=== PATIENT | female | born 1990 | race Caucasian/White ===

== ENCOUNTER 2019-10-22 13:12 | Outpatient (CLI) | payer MEDICARE, MEDICAID, SELFPAY ==
--- NOTE | ~2019-10-22 | CT_ITS ---
EXAMINATION: CT BRAIN W/O DATE: 10/22/2019 13:56 INDICATION: Migraine headaches. Paresthesias in the fingers and toes. TECHNIQUE: Computed tomography (CT) of the head was performed without intravenous contrast. The dose- length product was 605.33 mGy-cm. Automated exposure control and iterative reconstruction technique w ere employed. COMPARISON: No prior studies for comparison. FINDINGS: Normal brain parenchymal volume for age. Normal goodman-white differentiation. No acute intrac ranial hemorrhage, infarction, mass or mass effect. No ventriculomegaly or midline shift. Midline sagittal images demonstrate a normal corpus callosum, c raniovertebral junction and sella turcica. Basilar cisterns are patent. Paranasal sinuses and mastoids are pneumatized. No depressed skull fractures. IMPRESSION: 1. No acute intracranial abnormality. Reviewed, dictated and finalized at location A.
--- NOTE | ~2019-10-22 | XR_ITS ---
XR cervical spine 4-5V INDICATION: Paresthesias for 6 months TECHNIQUE: 4 views of the cervical spine. FINDINGS: Comparison to 01/10/2020 The cervical spine is visualized to the cervicothoracic junction. There is straightening of cervical lordosis, likely due to muscle spasm. There is no prevertebral soft tissue swelling, listhesis, or lo ss of vertebral body height. Intervertebral disc spaces are normal. The osseous central canal is pa tent. No displaced cervical spine fractures are identified. IMPRESSION: 1. No significant osseous abnormality of the cervical spine. Reviewed, dictated and finalized at location A.
[2019-10-22 14:40] LABS: Hematocrit 39.6 % (37.0-47.0); Hemoglobin 13.8 g/dL (12.0-15.0); Mean Corpuscular HGB Conc 34.8 g/dl (32-36); Mean Corpuscular Hemoglobin 32.2 pg (26-34); Mean Corpuscular Volume 92.3 fl (80-100); Mean Platelet Volume 9.3 fl (7.4-10.4); Platelet Count Result 215 k/mm3 (150-375); Red Blood Count 4.29 M/mm3 (4.2-5.4); Red Cell Distribution Width 12.2 % (11.5-14.5); White Blood Count 8.1 K/mm3 (4.5-10.0)
[2019-10-22 14:53] LABS: Alanine Aminotransferase 25 U/L (4-35); Albumin Level 4.4 g/dL (3.5-5.1); Alkaline Phosphatase 45 U/L (38-126); Aspartate Amino Transferase 27 U/L (14-36); Bilirubin,Total 0.3 mg/dL (0.2-1.3); Blood Urea Nitrogen 11 mg/dL (7-17); Calcium 9.2 mg/dL (8.4-10.2); Carbon Dioxide 29 mmol/L (22-30); Chloride 102 mmol/L (98-107); Estimated Glomerular Filt Rate > 60; Glucose 83 mg/dL (65-105); Potassium 3.8 mmol/L (3.4-5.0); Sodium 138 mmol/L (137-145)
[2019-10-22 15:24] LABS: Free T4 Free Thyroxine 0.79 ng/mL (0.78-2.19)
== END 2019-10-22 13:13 | disposition home or self-care (01) ==
PROVIDERS: PCP Emergency Medicine; Visit Provider Emergency Medicine
DX: R20.2 Paresthesia of skin (principal); G43.909 Migraine, unspecified, not intractable, without status migrainosus
CPT/HCPCS: 36415; 70450; 72050; 80053; 84439; 84443; 85027

== ENCOUNTER 2020-03-20 09:20 | Emergency (ER) | payer MEDICARE, MEDICAID, SELFPAY ==
--- NOTE | ~2020-03-20 | US_ITS ---
EXAMINATION: US pelvic complete w TV DATE: 03/20/2020 11:27 INDICATION: Left-sided pelvic pain Comparison:No prior studies for comparison. TECHNIQUE: Multiple transabdominal and endovaginal sonographic images of the pelvis performed. FINDINGS: The uterus measures 9.1 x 4.6 x 4.8 cm. There is fluid in the cervix, nonspecific. The endo metrial complex measures 10 mm. The right ovary measures 4 x 1.9 x 2 cm and the left ovary measures 4.3 x 2.4 x 2.9 cm. There are sm all follicles in each ovary. There is a dilated tubular structure in the left adnexa measuring 1.4 cm transversely. There is a 2.4 cm left ovarian cyst. Small amount of free fluid in the pelvis. IMPRESSION: 1. Dilated tubular structure left adnexa measuring 14 mm transversely. Consider hydrosalpinx/pyosalpi nx. 2: 2.4 cm left ovarian cyst. Reviewed, dictated and finalized at location B. IMPRESSION: 1. Dilated tubular structure left adnexa measuring 14 mm transversely. Consider hydrosalpinx/pyosalpinx. 2: 2.4 cm left ovarian cyst.
--- NOTE | ~2020-03-20 | CT_ITS ---
EXAMINATION: CT abdomen pelvis w con DATE: 03/20/2020 10:42 INDICATION: Left sided abdominal pain, nausea and vomiting TECHNIQUE: Computed tomography (CT) of the abdomen and pelvis was performed with 100 mL Omnipaque-350 intravenous contrast. Automated exposure control and iterative reconstruction technique were employe d. The dose-length product was 262.89 mGy-cm. COMPARISON: 11/19/2016 FINDINGS: Lung bases are clear. Heart size is normal. No pericardial or pleural effusion. Focal hepatic steatos is at the ligamentum teres. Gallbladder, spleen, pancreas, bilateral adrenal glands and kidneys are n ormal. Bowels including the appendix are normal. Bladder and retroflexed uterus are normal. Left hydr osalpinx versus a few closely opposed left adnexal cyst. Small amount of free fluid in the cul-de-sac . No abscess or free intraperitoneal gas. No pathologically enlarged abdominal or pelvic lymphadenopa thy. Mild lumbar dextrocurvature. IMPRESSION: 1. Small amount of nonspecific free fluid in the cul-de-sac and possible left hydrosalpinx with diffe rential including a few closely clustered left adnexal cysts. Correlate clinically for possible pelvi c inflammatory disease. Reviewed, dictated and finalized at location A. IMPRESSION: 1. Small amount of nonspecific free fluid in the cul-de-sac and possible left h ydrosalpinx with differential including a few closely clustered left adnexal cy sts. Correlate clinically for possible pelvic inflammatory disease.
[2020-03-20 09:56] VITALS: BP 106/74; PULSE 77; RESP 18; TEMP 37.3; O2SAT 97
[2020-03-20 10:06] LABS: Basophils Percent Auto 0.3 % (0.2-1.2); Eosinophils Absolute Auto 0.1 K/mm3 (0-0.3); Eosinophils Percent Auto 1.8 % (0-4.4); Hematocrit 41.3 % (37.0-47.0); Hemoglobin 14.4 g/dL (12.0-15.0); Immature Granulocyte Absolute 0.02 K/mm3 (0.00-0.031); Immature Granulocyte Percent A 0.3 % (0-0.5); Lymphocytes Absolute Auto 1.37 K/mm3 (0.9-3.2); Lymphocytes Percent Auto 20.5 % (18.3-44.2); Mean Corpuscular HGB Conc 34.9 g/dl (32-36); Mean Corpuscular Hemoglobin 32.1 pg (26-34); Mean Corpuscular Volume 92.2 fl (80-100); Mean Platelet Volume 9.4 fl (7.4-10.4); Monocytes Absolute Auto 0.3 K/mm3 (0.1-0.6); Monocytes Percent Auto 4.9 % (2.6-8.5); Neutrophils Absolute Auto 4.8 K/mm3 (1.3-6.7); Neutrophils Percent Auto 72.2 % (45.5-73.1); Platelet Count Result 228 k/mm3 (150-375); Red Blood Count 4.48 M/mm3 (4.2-5.4); White Blood Count 6.7 K/mm3 (4.5-10.0)
[2020-03-20 10:15] LABS: Add Urine Microscopic? YES; Appearance Urine Cloudy (Clear); Bacteria Urine Trace /hpf; Bilirubin Urine Negative (Negative); Blood Urine Negative (Negative); Color Urine Amber (Yellow); Glucose Urine UA Negative (Negative); Ketones Urine Negative (Negative); Leukocyte Esterase Ur Negative LEU/UL (Negative); Mucus Urine Heavy /lpf; Nitrate Urine Negative (Negative); Protein Urine 1+ mg/dL (Negative); Specific Grav Ur 1.018 (1.001-1.035); Squamous Epithelial Cell Urine Many /hpf (Few)
[2020-03-20 10:19] LABS: Alanine Aminotransferase 13 U/L (4-35); Albumin Level 4.6 g/dL (3.5-5.1); Alkaline Phosphatase 50 U/L (38-126); Anion Gap 6 mmol/L (8-16); Aspartate Amino Transferase 19 U/L (14-36); Bilirubin,Total 0.6 mg/dL (0.2-1.3); Blood Urea Nitrogen 7 mg/dL (7-17); Calcium 9.2 mg/dL (8.4-10.2); Carbon Dioxide 27 mmol/L (22-30); Chloride 105 mmol/L (98-107); Estimated CRCL calculation 135 ml/min; Estimated Glomerular Filt Rate > 60; Glucose 96 mg/dL (65-105); Lipase 81 U/L (23-300); Potassium 3.8 mmol/L (3.4-5.0); Sodium 138 mmol/L (137-145)
--- NOTE | 2020-03-20 10:32 | ED.ABDPAIN ---
HPI - Abdominal Pain General Chief Complaint: Abdominal Pain <Annette Serna PA-C - Last Filed: 03/20/20 14:57> Stated Complaint: lt flank and abd pain <Annette Serna PA-C - Last Filed: 03/20/20 14:57> Time Seen by Provider: 03/20/20 10:09 <Annette Serna PA-C - Last Filed: 03/20/20 14:57> Source: patient <Annette Serna PA-C - Last Filed: 03/20/20 14:57> Mode of arrival: wheelchair <Annette Serna PA-C - Last Filed: 03/20/20 14:57> Limitations: no limitations <Annette Serna PA-C - Last Filed: 03/20/20 14:57> History of Present Illness HPI narrative: This is a 29-year-old female that presents the emergency department for left-sided flank/abdominal pain since last night. Reports the pain is been constant. It is sharp in nature. Associated with nausea and vomiting. Denies fever, dysuria, hematuria. <Annette Serna PA-C - Last Filed: 03/20/20 14:57> Related Data Allergies/Adverse Reactions: Allergies Allergy/AdvReac Type Severity Reaction Status Date / Time ciprofloxacin Allergy Intermediate eye Verified 05/22/19 11:02 swelling divalproex sodium Allergy Intermediate hives Verified 05/22/19 11:02 <Annette Serna PA-C - Last Filed: 03/20/20 14:57> Review of Systems Review of Systems: Narrative: CONSTITUTIONAL: Denies fever GASTROINTESTINAL: Reports abdominal pain, nausea, vomiting GENITOURINARY: Denies dysuria or hematuria. <Annette Serna PA-C - Last Filed: 03/20/20 14:57> All systems reviewed & are unremarkable except as noted in HPI and below <Annette Serna PA-C - Last Filed: 03/20/20 14:57> [facility] Past Medical History Medical History: Medical History (Updated 03/20/20 @ 14:55 by Annette Serna PA-C) Anemia Angina at rest Anxiety Asthma Bipolar 1 disorder Depression Heart murmur IBS (irritable bowel syndrome) Kidney stones Migraines Ulcer UTI (urinary tract infection) <Annette Serna PA-C - Last Filed: 03/20/20 14:57> Surgical History Surgical History: Surgical History (Updated 05/22/19 @ 11:02 by Dixie Mejía) Deficient knowledge of caesarean delivery x2 History of tubal ligation Hx of tonsillectomy <Annette Serna PA-C - Last Filed: 03/20/20 14:57> Social History Social History: Social History (Updated 05/22/19 @ 11:05 by Dixie Mejía) Smoking packs per day: 0.25 Smoking cigarettes per day: 5.0 Years smoked: 13 Smoking pack-years: 3.25 Smoking status: Current every day smoker Tobacco type: cigarettes Additional smoking assessment comments: Pt has been smoking since the age of 15. <Annette Serna PA-C - Last Filed: 03/20/20 14:57> Exam Narrative: Exam Narrative: GENERAL: Well-appearing, well-nourished, and in no acute distress. HEAD: Normocephalic, atraumatic. EYES: EOMI. CHEST: Clear to auscultation. No respiratory distress. No wheezes rales or rhonchi HEART: Regular rate and rhythm. No murmur heard. Normal peripheral pulses. ABDOMEN: Soft, nondistended, normal active bowel sounds. Tender to palpation throughout the left side of the abdomen, without guarding. No CVA tenderness EXTREMITIES: Normal range of motion. No edema. SKIN: Warm, dry, no rash. NEURO: No focal deficits. Alert and oriented x3. PSYCH: Normal mood and affect PELVIC: Normal external genitalia. Normal-appearing cervix. Small amount of white cervical discharge. No overt cervical motion tenderness <KASSANDRA Garcia Last Filed: 03/20/20 14:57> Course Consultations Consultation #1: Spoke with Dr. Darnell about patient and work-up. Likely she believes pain is due to an ovarian cyst. Looking at images she does not suspect pyosalpinx. Will be safe and presumptively treat for PID though, and patient will follow-up in clinic <Annette Serna PA-C - Last Filed: 03/20/20 14:57> Date: 03/20/20 <Annette Serna PA-C - Last Filed: 03/20/20 14:57> Time: 14:52 <Annette Vick
[2020-03-20] MEDS: SODIUM CHLORIDE 0.9% IV 1,000 ML 999 ML IV CONT (11:20)
[2020-03-20] MEDS: MORPHINE SULFATE 4 MG/ML INJ IV PUSH (11:23)
[2020-03-20] MEDS: ONDANSETRON INJ 4 MG/2 ML VIAL IV PUSH (11:23)
[2020-03-20] MEDS: KETOROLAC 30 MG/ML VIAL (*BKC) IV PUSH (12:25)
[2020-03-20 12:30] VITALS: BP 102/64; PULSE 60; RESP 16; O2SAT 97
[2020-03-20] MEDS: LIDOCAINE HCL 1% LOCAL INJ 20 ML VIAL (14:53)
[2020-03-20] MEDS: AZITHROMYCIN 250 MG TABLET 1000 MG PO (14:55)
[2020-03-20] MEDS: DOXYCYCLINE HYCLATE 100 MG TABLET PO (14:56)
[2020-03-20] MEDS: cefTRIAXone 250 MG VIAL IM (14:56)
[2020-03-20 15:35] VITALS: BP 93/65; PULSE 55; RESP 16; O2SAT 98
== END 2020-03-20 15:35 | disposition home or self-care (01) ==
PROVIDERS: Physician Assistant; Emergency Provider General Practice; PCP Emergency Medicine
DX: N73.9 Female pelvic inflammatory disease, unspecified (principal); N83.202 Unspecified ovarian cyst, left side; F17.210 Nicotine dependence, cigarettes, uncomplicated; J45.909 Unspecified asthma, uncomplicated; R01.1 Cardiac murmur, unspecified
CPT/HCPCS: 36415; 74177; 76830; 76856; 80053; 81001; 81025; 83690; 85025; 87070; 87086; 87088; 87491; 87591; 87808; 96361; 96372; 96374; 96375; 99284; A9270; J0131; J0696; J1885; J2270; J2405; J7030; Q9967

== ENCOUNTER 2020-03-22 15:04 | Observation (INO) | payer MEDICARE, MEDICAID, SELFPAY ==
[2020-03-22] VITALS (18 sets, daily range): BP systolic 91–132; BP diastolic 56–100; PULSE 52–86; RESP 12–21; TEMP 36.1–37.4; O2SAT 95–100
--- NOTE | 2020-03-22 15:24 | ED.ABDPAIN ---
HPI - Abdominal Pain General Chief Complaint: Abdominal Pain Stated Complaint: abd pain Time Seen by Provider: 03/22/20 15:19 Source: RN notes reviewed History of Present Illness HPI narrative: Patient presents to emergency department from home via EMS for abdominal pain. Patient states abdominal pain began 4 days ago. The pain is located in the bilateral lower abdomen worse on the left with radiation to the left flank. Described as aching in nature and associated with nausea and vomiting. Patient states that she was seen 2 days ago and diagnosed with possible PID and is been on antibiotics with minimal relief. She was seen by DEER FARMER today scheduled for surgery later today and was referred to the emergency department by DEER FARMER. She denies any fevers or chills chest pain shortness of breath or any other symptoms patient had both CT scan and ultrasound performed on the Related Data Allergies Allergy/AdvReac Type Severity Reaction Status Date / Time ciprofloxacin Allergy Intermediate eye Verified 03/22/20 15:22 swelling divalproex sodium Allergy Intermediate hives Verified 03/22/20 15:22 Review of Systems Review of Systems: Narrative: Gen.: Denies fevers or chills ENT: Denies congestion Respiratory: Denies shortness of breath or cough CV: Denies chest pain or palpitations GI: See HPI denies burning, urgency, frequency or hematuria Musculoskeletal: Denies back pain or muscle pain Neuro: Denies numbness, tingling, weakness or focal weakness Skin: Denies rash Except as documented, all other systems reviewed and negative [facility] Past Medical History Medical History Anemia Angina at rest Anxiety Asthma Bipolar 1 disorder Depression Heart murmur IBS (irritable bowel syndrome) Kidney stones Migraines Ulcer UTI (urinary tract infection) Social History Social History Smoking packs per day: 0.25 Smoking cigarettes per day: 5.0 Years smoked: 13 Smoking pack-years: 3.25 Smoking status: Current every day smoker Tobacco type: cigarettes Additional smoking assessment comments: Pt has been smoking since the age of 15. Gender identity (if verbalized by the patient): Female Exam Narrative: Exam Narrative: APPEARANCE: No acute distress, nontoxic, resting in bed HEENT: Normocephalic, atraumatic, OMM RESPIRATORY: No respiratory distress, clear to auscultation bilaterally with no rhonchi wheezing or rales CARDIOVASCULAR: RRR s murmur ABDOMINAL: Soft, nondistended, tender palpation right lower quadrant and left lower quadrant with mild tenderness right upper quadrant left upper quadrant, no rebound or guarding MUSCULOSKELETAl: Moves all extremities. No clubbing, cyanosis or edema. NEURO: Awake and alert. Following commands, speech normal, no focal deficits SKIN:: Warm, dry. Normal Color PSYCHIATRIC: Normal affect/mood Course Course Emergency Course: Reviewed old records Called and discussed with Dr. Dutton presentation work-up. He will come to the emergency department to evaluate the patient Dr. Dutton came to the emergency department. Plans for OR at this time. Recommends no further medications at this time Vital Signs Vital signs: Vital Signs Temperature 98.8 F 03/22/20 15:10 Pulse Rate 86 03/22/20 15:10 Respiratory Rate 18 03/22/20 15:10 Blood Pressure 123/83 03/22/20 15:10 Pulse Oximetry 100 03/22/20 15:10 Temperature 98.8 F 03/22/20 15:10 Pulse Rate 64 03/22/20 16:55 Respiratory Rate 14 03/22/20 16:55 Blood Pressure 113/71 03/22/20 16:55 Pulse Oximetry 100 03/22/20 16:55 MDM - Abdominal Pain Lab Data Result diagrams: 03/22/20 15:33 03/22/20 15:33 Labs: Lab Results 03/22/20 03/22/20 03/22/20 Range/Units 15:20 15:33 15:33 WBC 6.8 (4.5-10.0) K/mm3 RBC 3.87 L (4.2-5.4) M/mm3 Hgb 12.5 (12.0-15.0) g/dL
[2020-03-22 15:32] LABS: Add Urine Microscopic? NO; Appearance Urine Clear (Clear); Bilirubin Urine Negative (Negative); Blood Urine Negative (Negative); Color Urine Straw (Yellow); Glucose Urine UA Negative (Negative); Ketones Urine Negative (Negative); Leukocyte Esterase Ur Negative LEU/UL (Negative); Nitrate Urine Negative (Negative); Protein Urine Negative (Negative); Specific Grav Ur 1.008 (1.001-1.035); Urobilinogen Urine Negative mg/dL (<2.0)
[2020-03-22] MEDS: ONDANSETRON INJ 4 MG/2 ML VIAL IV PUSH (15:32)
[2020-03-22] MEDS: SODIUM CHLORIDE 0.9% IV 1,000 ML 999 ML IV CONT (15:32)
[2020-03-22] MEDS: MORPHINE SULFATE (*CRX) 4 MG/ML INJ IV PUSH (15:32)
[2020-03-22 15:40] LABS: Basophils Percent Auto 0.1 % (0.2-1.2); Eosinophils Absolute Auto 0.1 K/mm3 (0-0.3); Hematocrit 35.8 % (37.0-47.0); Hemoglobin 12.5 g/dL (12.0-15.0); Immature Granulocyte Absolute 0.01 K/mm3 (0.00-0.031); Immature Granulocyte Percent A 0.1 % (0-0.5); Lymphocytes Absolute Auto 1.61 K/mm3 (0.9-3.2); Lymphocytes Percent Auto 23.7 % (18.3-44.2); Mean Corpuscular HGB Conc 34.9 g/dl (32-36); Mean Corpuscular Hemoglobin 32.3 pg (26-34); Mean Corpuscular Volume 92.5 fl (80-100); Mean Platelet Volume 9.1 fl (7.4-10.4); Monocytes Absolute Auto 0.3 K/mm3 (0.1-0.6); Monocytes Percent Auto 4.6 % (2.6-8.5); Neutrophils Absolute Auto 4.8 K/mm3 (1.3-6.7); Neutrophils Percent Auto 70.5 % (45.5-73.1); Platelet Count Result 196 k/mm3 (150-375); Red Blood Count 3.87 M/mm3 (4.2-5.4); Red Cell Distribution Width 11.9 % (11.5-14.5); White Blood Count 6.8 K/mm3 (4.5-10.0)
[2020-03-22 15:52] LABS: Alanine Aminotransferase 11 U/L (4-35); Albumin Level 3.9 g/dL (3.5-5.1); Alkaline Phosphatase 37 U/L (38-126); Anion Gap 5 mmol/L (8-16); Aspartate Amino Transferase 15 U/L (14-36); Bilirubin,Total 0.3 mg/dL (0.2-1.3); Blood Urea Nitrogen 11 mg/dL (7-17); Calcium 8.7 mg/dL (8.4-10.2); Carbon Dioxide 27 mmol/L (22-30); Chloride 106 mmol/L (98-107); Estimated CRCL calculation 120 ml/min; Estimated Glomerular Filt Rate > 60; Glucose 95 mg/dL (65-105); Lipase 75 U/L (23-300); Potassium 3.6 mmol/L (3.4-5.0); Sodium 138 mmol/L (137-145)
--- NOTE | 2020-03-22 16:00 | PC.NURSE ---
CHILD NUTRITION DIRECTOR at bedside discussing POC.
--- NOTE | 2020-03-22 16:31 | WPDANESEPPF ---
Anes - Initial Pre Proc Eval Procedure: Operation Date: 03/22/20 16:30 Proposed Procedures p Diagnostic Laparoscopy, Bilateral Salpingectomy(Bilateral) - Rere Dutton DO Date/Time: 03/22/20 16:31 Pre Op Diagnosis: abd pain Patient Data Age: 29 Gender: F Height: 1.63 m Weight: 68 kg Last Vital Signs Temp 37.1 C 03/22/20 15:10 Pulse 67 03/22/20 15:59 Resp 15 03/22/20 15:59 BP 129/85 03/22/20 15:59 Pulse Ox 100 03/22/20 15:59 Allergies Allergy/AdvReac Type Severity Reaction Status Date / Time ciprofloxacin Allergy Intermediate eye Verified 03/22/20 15:22 swelling divalproex sodium Allergy Intermediate hives Verified 03/22/20 15:22 Home Medications Medication Instructions Recorded Confirmed Type doxycycline hyclate 100 mg PO BID 14 Days #28 cap 03/20/20 Rx ketorolac 10 mg PO Q6H PRN 5 Days #20 tablet 03/20/20 Rx ondansetron 4 mg PO Q8H PRN #10 tablet 03/20/20 Rx Laboratory Tests 03/22/20 03/22/20 03/22/20 15:20 15:33 15:33 WBC 6.8 K/mm3 K/mm3 (4.5-10.0) RBC 3.87 M/mm3 L M/mm3 (4.2-5.4) Hgb 12.5 g/dL g/dL (12.0-15.0) Hct 35.8 % L % (37.0-47.0) MCV 92.5 fl fl (80-100) MCH 32.3 pg pg (26-34) MCHC 34.9 g/dl g/dl (32-36) RDW 11.9 % % (11.5-14.5) Plt Count 196 k/mm3 k/mm3 (150-375) MPV 9.1 fl fl (7.4-10.4) Immature Gran % (Auto) 0.1 % % (0-0.5) Neut % (Auto) 70.5 % % (45.5-73.1) Lymph % (Auto) 23.7 % % (18.3-44.2) [place] % (Auto) 4.6 % % (2.6-8.5) Eos % (Auto) 1.0 % % (0-4.4) Baso % (Auto) 0.1 % L % (0.2-1.2) Lymph # (Auto) 1.61 K/mm3 K/mm3 (0.9-3.2) [place] # (Auto) 0.3 K/mm3 K/mm3 (0.1-0.6) Eos # (Auto) 0.1 K/mm3 K/mm3 (0-0.3) Baso # (Auto) 0.0 K/mm3 K/mm3 (0.0-0.1) Abs Immat Gran (auto) 0.01 K/mm3 K/mm3 (0.00-0.031) Absolute Neuts (auto) 4.8 K/mm3 K/mm3 (1.3-6.7) Absolute Nucleated RBC 0.0 K/mm3 K/mm3 (0.0-0.012) Nucleated RBC % 0.0 % % (0.0-0.2) Sodium 138 mmol/L mmol/L (137-145) Potassium 3.6 mmol/L mmol/L (3.4-5.0) Chloride 106 mmol/L mmol/L (98-107) Carbon Dioxide 27 mmol/L mmol/L (22-30) Anion Gap 5 mmol/L L mmol/L (8-16) BUN 11 mg/dL mg/dL (7-17) Creatinine 0.50 mg/dL L mg/dL (0.7-1.0) Estim Creat Clear Calc 120 ml/min ml/min Estimated GFR > 60 (59 - ) Glucose 95 mg/dL mg/dL (65-105) Calcium 8.7 mg/dL mg/dL (8.4-10.2) Total Bilirubin 0.3 mg/dL mg/dL (0.2-1.3) AST 15 U/L U/L (14-36) ALT 11 U/L U/L (4-35) Alkaline Phosphatase 37 U/L L U/L (38-126) Total Protein 6.0 g/dL L g/dL (6.3-8.2) Albumin 3.9 g/dL g/dL (3.5-5.1) Lipase 75 U/L U/L (23-300) Urine Color Straw (Yellow) Urine Appearance Clear (Clear) Urine pH 7.0 (5.0-9.0) Ur Specific [place] 1.008 (1.001-1.035) Urine Protein Negative mg/dL mg/dL (Negative) Urine Glucose (UA) Negative mg/dL mg/dL (Negative) Urine Ketones Negative mg/dL mg/dL (Negative) Ur Blood (Man) Negative (Negative) Urine Nitrate Negative (Negative) Urine Bilirubin Negative (Negative) Urine Urobilinogen Negative mg/dL mg/dL (<2.0) Leukocyte Esterase Rfl Negative MATILDA/UL MATILDA/UL (Negative) Patient hx anesthesia problems: none Family hx anesthesia problems: none PMFSH Past Medical History Medical History Anemia Angina at rest Anxiety Asthma Bipolar 1 disorder Depression Heart murmur IBS (irritable bowel syndrome) Kidney stones Migraines Ulcer UTI (urina
[2020-03-22] MEDS: LACTATED RINGERS 1,000 ML 30 ML IV CONT ×2 (16:55→18:31)
[2020-03-22] MEDS: fentaNYL CITRATE INJ (*CRX) 100 MCG/2 ML VIAL 25 MCG IV PUSH ×8 (18:40→20:20)
--- NOTE | 2020-03-22 18:50 | SUR.PHASEI ---
183; PT INTO PACU PER STRETCHER LAYING ON RT SIDE. MOANING. ABDOMEN SOFT. 3 INCISIONS D/I. SCANT VAG FLOW TO PERIPAD. PT COMFORTED. PT SHIVERING. MANUEL HUGGER APPLIED.
[2020-03-22] MEDS: HYDROmorphone HCL INJ (*CRX) 1 MG/ML SYR 0.25 MG IV PUSH ×8 (19:05→19:45)
--- NOTE | 2020-03-22 19:19 | SUR.PHASEI ---
1900; CALLED DR FOREMAN. NO DISCHARGE ORDERS OR INSTRUCTIONS. TELEPHONE ORDERS GIVEN. HOME. PELVIC REST, SHOWER TOMORROW, NO TUB BATHS, MAKE APPT 2 WEEKS. DIET MORRIS, ACTIVITY MRORIS.
--- NOTE | 2020-03-22 19:38 | SUR.PHASEI ---
PT AWAKE AND ALERT. STATES PAIN NOW 02/13. PT TALKATIVE.
--- NOTE | 2020-03-22 19:50 | SUR.PHASEI ---
194; WHILE ASSESSING ABDOMEN, PT NOW HAS A LUMP AROUND LEFT INCISION. INCISIONS ALL D/I. ABDOMEN SOFT. LUMP APPROX SLIGHTLY SMALLER THAN A GOLF BALL. BORDERS MARKED WITH PEN. DR FOREMAN NOTIFIED. PT STATES PAIN 02/13. DR FOREMAN WILL ADMIT PT FOR OBSERVATION AND PAIN CONTROL.
--- NOTE | 2020-03-22 21:07 | SUR.PHASEI ---
2100; pt awake and alert. talkative. states pain better at 8/10. pt able to rest quietly. lump underneath lt incision unchanged.
--- NOTE | 2020-03-22 21:36 | SUR.PHASEI ---
UPON ARRIVAL INTO ROOM 276. ASSISTED PT TO STAND AND TRANSFER TO BED FROM STRETCHER. GAIT STEADY. FLOOR RN CAME INTO ROOM. I SHOWED HER PT'S ABDOMEN. PT GUARDING. ASKED PT TO TAKE SLOW DEEP BREATH IN AND OUT. ABDOMEN SOFT. INCISIONS ALL D/I. LT INCISION THE LUMP THAT HAD BORDERS MARKED WAS MUCH SMALLER AND NO LONGER PALPABLE.
[2020-03-22] MEDS: HYDROcodone/acetaminophen (*CRX) 10-325 MG TABLET 1 TAB PO (22:28)
[2020-03-22] MEDS: KETOROLAC 30 MG/ML VIAL (*BKC) IV PUSH (22:29)
[2020-03-23] VITALS: BP 91/51; PULSE 65; O2SAT 96
[2020-03-23 02:00] VITALS: BP 95/53; PULSE 58; TEMP 37; O2SAT 97
[2020-03-23] MEDS: HYDROcodone/acetaminophen (*CRX) 10-325 MG TABLET 1 TAB PO (02:06)
[2020-03-23] MEDS: KETOROLAC 30 MG/ML VIAL (*BKC) IV PUSH (04:19)
[2020-03-23 05:51] LABS: Basophils Percent Auto 0.1 % (0.2-1.2); Hematocrit 35.8 % (37.0-47.0); Hemoglobin 12.2 g/dL (12.0-15.0); Immature Granulocyte Absolute 0.03 K/mm3 (0.00-0.031); Immature Granulocyte Percent A 0.4 % (0-0.5); Lymphocytes Absolute Auto 0.57 K/mm3 (0.9-3.2); Lymphocytes Percent Auto 7.6 % (18.3-44.2); Mean Corpuscular HGB Conc 34.1 g/dl (32-36); Monocytes Absolute Auto 0.2 K/mm3 (0.1-0.6); Monocytes Percent Auto 3.1 % (2.6-8.5); Neutrophils Absolute Auto 6.7 K/mm3 (1.3-6.7); Neutrophils Percent Auto 88.8 % (45.5-73.1); Platelet Count Result 205 k/mm3 (150-375); Red Blood Count 3.81 M/mm3 (4.2-5.4); Red Cell Distribution Width 11.8 % (11.5-14.5); White Blood Count 7.5 K/mm3 (4.5-10.0)
--- NOTE | 2020-03-23 08:06 | PM.PROC ---
Procedure Note - Detailed Date of procedure: 03/23/20 Pre-op diagnosis: abd pain Left hematosalpinx, intra-abdominal adhesions, left ovarian simple cyst Post-op diagnosis: other Procedure performed: Diagnostic laparoscopy, bilateral salpingectomy, left ovarian cyst drainage, lysis of adhesions Description of procedure: Diagnostic laparoscopy, bilateral salpingectomy, left ovarian cyst drainage, lysis of adhesions Description of procedure: Patient was moved to the OR table after adequate anesthesia was established the patient was placed in dorsal lithotomy position with Sony stirrups for support. Patient's vagina and perineum was prepped using Betadine and the abdomen was prepped using chlorhexidine. The patient was draped in the usual sterile fashion. A time-out was performed to identify the correct patient and procedure. Straight catheterization of the bladder was performed 150 mL of urine obtained. Speculum was inserted into the vagina. Anterior lip of the the cervix was grasped using a single-tooth tenaculum and the cervix was dilated using dilators. The uterus was sounded to 9 cm and a HUMI uterine manipulator device was inserted into the uterine cavity. Single-tooth tenaculum was removed the cervix. At this point attention was turned to the abdomen. a skin incision was made at the inferior aspect of the umbilicus. The laparoscoped was inserted into the intra-abdominal cavity with the laparoscopic trocar under direct visualization. Once intra-abdominal placement was confirmed CO2 gas was hooked up and the abdomen was insufflated with gas. The patient was then placed in Trendelenburg position inspection of the pelvic cavity was performed history of bilateral tubal ligation was noted. the left fallopian tube was inspected and it was noted that there was a blood clot at the fimbrial end of the fallopian tube. The left ovary was also noted to have a small cyst. And there was a small amount of bloody fluid in the posterior cul-de-sac. the right ovary ovary appeared normal. at this time to more skin incision was made on the abdomen the right and 1 on the right and 1 on the left side of the abdomen. and laparoscopic trocars were inserted into the intra-abdominal cavity. Some intra-abdominal adhesions were also noted on the anterior abdomen. lysis of adhesions was performed. At this point bilateral salpingectomy was performed using the LigaSure device. Right ovarian cyst drainage performed simple fluid was noted. the Endo-Catch bag was introduced into the abdominal cavity and the specimen was removed from the surgical field. The pelvic cavity was irrigated and any remaining blood in the cul-de-sac was evacuated. Surgicel powder was used over the ovarian cyst drainage site to obtain hemostasis. 1 of the ports sites used a 10 mm port so therefore a Harsha Lashon device was used to reapproximate the fascia. At this point CO2 gas was released from the abdomen and the laparoscopic trocars were removed. all instrumentation was removed from the uterine cavity in the vagina. Skin incisions were reapproximated using 4 Monocryl and Dermabond. Patient tolerated the procedure well and was transferred to the recovery room in stable condition. Anesthesia: GETA Surgeon: Rere Dutton DO Estimated blood loss (mL): 10 Urine output (mL): 150 Drains: No Packing: No Pathology: yes Complications: No immediate complications Condition: stable Findings: Left hematosalpinx, intra-abdominal adhesions, left ovarian simple cyst
--- NOTE | 2020-03-23 08:19 | PM.DS ---
DS: Admitting Diagnosis Admitting Diagnosis Admitting Diagnosis: abd pain DS: Discharge Diagnosis Discharge Diagnosis (1) Acute pelvic pain, female: Code(s): R10.2 - Pelvic and perineal pain Status: Acute (2) Hematosalpinx: Code(s): N83.6 - Hematosalpinx Status: Acute (3) Status post bilateral salpingectomy: Code(s): Z90.79 - Acquired absence of other genital organ(s) Status: Acute DS: Summary Hospital Course Hospital Course: Patient was seen in the ED for the second time this week due to severe LLQ abdominal pain. US showed dilated left fallopian tube, left ovarian cyst, and fluid in pelvis. She underwent diagnostic laparoscopy, bilateral salpingectomy, left ovarian cyst drainage, and lysis of adhesions. Had some pain control issues in PACU and some swelling of one of the incision sites so decision was made to observe her overnight. Pain control was better overnight and incisional site swelling improved. Post op Hb stable and patient progressing well. Status at Discharge Functional status at discharge: independent ambulation Overall status at discharge: patient is progressing back to baseline Time Spent with Patient Time attestation: Total time spent providing and/or coordinating discharge services: Exam Const: General: comfortable and no acute distress Resp: Effort & Inspection: normal respiratory effort Cardio: Rate: regular rate GI: GI Palp: Yes Soft to palpation and Yes Tenderness to palpation present (GI) Other: Incision sites C/D/I. Swelling of left incision site has improved Skin: General skin exam: normal color Psych: Appearance: grossly normal Mental Status: mental status grossly normal Speech and movement: Normal speech and movement present Thought content: Yes Normal thought content present DS: Data Data Completed and Pending Pending studies at discharge: Pending at discharge 03/22/20 18:02 Surgical [PTH] Routine Labs on day of discharge: Labs from last 24 hours 03/23/20 03/23/20 03/22/20 04:28 04:28 15:33 WBC 7.5 RBC 3.81 L Hgb 12.2 Cancelled Hct 35.8 L Cancelled MCV 94.0 MCH 32.0 MCHC 34.1 RDW 11.8 Plt Count 205 MPV 10.0 Immature Gran % (Auto) 0.4 Neut % (Auto) 88.8 H Lymph % (Auto) 7.6 L [place] % (Auto) 3.1 Eos % (Auto) 0.0 Baso % (Auto) 0.1 L Lymph # (Auto) 0.57 L [place] # (Auto) 0.2 Eos # (Auto) 0.0 Baso # (Auto) 0.0 Abs Immat Gran (auto) 0.03 Absolute Neuts (auto) 6.7 Absolute Nucleated RBC 0.0 Nucleated RBC % 0.0 Sodium 138 Potassium 3.6 Chloride 106 Carbon Dioxide 27 Anion Gap 5 L BUN 11 Creatinine 0.50 L Estim Creat Clear Calc 120 Estimated GFR > 60 Glucose 95 Calcium 8.7 Total Bilirubin 0.3 AST 15 ALT 11 Alkaline Phosphatase 37 L Total Protein 6.0 L Albumin 3.9 Lipase 75 Urine Color Urine Appearance Urine pH Ur Specific [place] Urine Protein Urine Glucose (UA) Urine Ketones Ur Blood (Man) Urine Nitrate Urine Bilirubin Urine Urobilinogen Leukocyte Esterase Rfl 03/22/20 03/22/20 15:33 15:20 WBC 6.8 RBC 3.87 L Hgb 12.5 Hct 35.8 L MCV 92.5 MCH 32.3 MCHC 34.9 RDW 11.9 Plt Count 196 MPV 9.1 Immature Gran % (Auto) 0.1 Neut % (Auto) 70.5 Lymph % (Auto) 23.7 [place] % (Auto) 4.6 Eos % (Auto) 1.0 Baso % (Auto) 0.1 L Lymph # (Auto) 1.61 [place] # (Auto) 0.3 Eos # (Auto) 0.1 Baso # (Auto) 0.0 Abs Immat Gran (auto) 0.01 Absolute Neuts (auto) 4.8 Absolute Nucleated RBC 0.0 Nucleated RBC % 0.0 Sodium Potassium Chloride Carbon Dioxide Anion Gap BUN Creatinine Estim Creat Clear Calc Estimated GFR Glucose Calcium Total Bilirubin AST ALT Alkaline Phosphatase Total Protein Albumin Lipase Urine Color Straw Urine Appearance Clear Urine pH 7.0 Ur Specific [place]
[2020-03-23 08:35] VITALS: BP 96/64; PULSE 62; RESP 18; TEMP 37.4; O2SAT 100
[2020-03-23] MEDS: DOCUSATE SODIUM 100 MG CAPSULE PO (09:17)
[2020-03-23] MEDS: HYDROcodone/acetaminophen (*CRX) 5-325 MG TABLET 1 TAB PO (09:17)
== END 2020-03-23 10:28 | disposition home or self-care (01) ==
LOC: ANHED 16:25 → ANHSURGERY 16:33 → ANHOB2 03-23 09:45 → ANHLDR 03-23 14:21
PROVIDERS: Emergency Medicine; Admitting Provider Obstetrics & Gynecology; Emergency Provider Emergency Medicine; PCP Obstetrics & Gynecology; Visit Provider Obstetrics & Gynecology
PROC: (CPT 49320; principal; 2020-03-22 16:30)
DX: N83.6 Hematosalpinx (principal); N70.11 Chronic salpingitis; N73.6 Female pelvic peritoneal adhesions (postinfective); N83.12 Corpus luteum cyst of left ovary; F17.210 Nicotine dependence, cigarettes, uncomplicated; F41.9 Anxiety disorder, unspecified; F31.89 Other bipolar disorder; J45.909 Unspecified asthma, uncomplicated; K58.9 Irritable bowel syndrome, unspecified; G43.909 Migraine, unspecified, not intractable, without status migrainosus
CPT/HCPCS: 58661; 58662; 36415; 80053; 81003; 81025; 83690; 85025; 88302; 88305; 96361; 96374; 96375; 99199; 99285; A9270; G0378; J1100; J1170; J1885; J2250; J2270; J2370; J2405; J2704; J2710; J3010; J7030; J7120

== ENCOUNTER 2020-03-28 10:12 | Emergency (ER) | payer MEDICARE, MEDICAID, SELFPAY ==
--- NOTE | ~2020-03-28 | CT_ITS ---
EXAMINATION: CT abdomen pelvis w con EXAM DATE: 03/28/2020 12:04 INDICATION: Postoperative left flank pain. TECHNIQUE: Spiral CT of the abdomen and pelvis was performed following intravenous injection of 100 m L Omnipaque 350. Axial, coronal and sagittal images were reviewed. The dose-length product (DLP) fo r this examination was 281.39 mGy-cm. The exposure was tailored according to patient size (auto mA e xposure control), and iterative reconstruction (ASIR) was used as additional dose reduction technique . Comparison is made to prior examination from 03/20/2020. FINDINGS: The liver, spleen, adrenal glands and pancreas are unremarkable. Gallbladder is unremarkab le. No biliary obstruction. Portal and splenic veins are patent. Kidneys enhance symmetrically. T here is no hydronephrosis. The uterus is unremarkable. Evidence of recently ruptured left ovarian c yst. The bladder is unremarkable. There is no retroperitoneal or pelvic lymphadenopathy. Umbilica l, left abdominal trocar sites identified. The appendix is normal. The stomach and small bowel are unremarkable. There is moderate to large am ount of colonic stool. No free intraperitoneal gas. The heart is normal in size. There are no pe ricardial or pleural effusions. The lung bases are unremarkable. The bones are unremarkable. IMPRESSION: 1. Evidence of recently ruptured left ovarian cyst. 2. Constipation. Reviewed, dictated and finalized at location B.
[2020-03-28 10:15] VITALS: BP 122/79; PULSE 96; RESP 18; TEMP 36.8; O2SAT 100
--- NOTE | 2020-03-28 11:17 | ED.GENADULT ---
HPI - General Adult General Chief complaint: Unspecified Stated complaint: NO BM POST OP Time Seen by Provider: 03/28/20 10:25 Source: patient Mode of arrival: ambulatory Limitations: no limitations History of Present Illness HPI narrative: Patient presents with chief complaint of abdominal distention, pelvic pressure, left lower abdominal pain, and no bowel movement for 1 week. Patient states on Friday she had her fallopian tubes removed due to hematosalpix which resulted in bilateral fallopian tube removal by Dr Dutton. She reports since she has only passed a small amount of liquid stool, feels distended, has left lower abdominal pain that feels as if a mass id forming inside her, and feelings of incomplete urination. She reports when sitting at rest she is comfortable but with twisting or trying to urinate or have a bowel movement she feels greater pressure and pain. She states she has taken 2 Spicer since the surgery but has mostly been taking the toradol prescribed to her. She reports she has been taking 4 Ducolax daily without bowel movement. She reports she has been able to pass gas. She reports chill yesterday and slightly decreased appeitie but reports she has been able to eat and drink without vomiting and denies fever. Related Data Allergies Allergy/AdvReac Type Severity Reaction Status Date / Time ciprofloxacin Allergy Intermediate eye Verified 03/22/20 15:22 swelling divalproex sodium Allergy Intermediate hives Verified 03/22/20 15:22 Review of Systems Review of Systems: Narrative: CONSTITUTIONAL: Reports chills yesterday Denies fever or sweats. EYES: Denies visual changes, redness, or discharge. ENT: Denies rhinorrhea, congestion, sore throat, or otalgia. CARDIOVASCULAR: Denies chest pain, palpitations, or edema. RESPIRATORY: Denies cough or dyspnea. GASTROINTESTINAL: Reports abdominal pain and constipation Denies nausea, vomiting, or diarrhea. GENITOURINARY: Reports dysuria Denies hematuria. SKIN: Denies incision drainage, rash or itching. MUSCULOSKELETAL: Denies back pain, myalgia, or joint pain NEUROLOGIC: Denies headache, numbness, dizziness, or weakness. PSYCHIATRIC: Denies anxiety or depression. [facility] Social History Social History Smoking packs per day: 0.25 Smoking cigarettes per day: 5.0 Years smoked: 13 Smoking pack-years: 3.25 Smoking status: Current every day smoker Tobacco type: cigarettes Additional smoking assessment comments: Pt has been smoking since the age of 15. Gender identity (if verbalized by the patient): Female Exam Narrative: Exam Narrative: GENERAL: Well-appearing, well-nourished. HEAD: Normocephalic, atraumatic. EYES: PERRLA and EOMI. ENT: Nares clear, no rhinorrhea or epistaxis. Mucous membranes moist. Oropharynx without tonsillar hypertrophy exudate or other lesions. Bilateral TMs pearly goodman nonbulging NECK: Supple. No adenopathy or masses. No vertebral tenderness or loss of ROM. CHEST: Clear to auscultation. No respiratory distress. No wheezes rales or rhonchi HEART: Regular rate and rhythm. ABDOMEN: Soft, nontender, mildly distended, present bowel sounds, tenderness with palpation of left lower quadrant. Surgical incisions appear to be healing well at umbilicus and left and right side of abdomen. EXTREMITIES: No acute changes in ROM. No edema. SKIN: Warm, dry, no rash. NEURO: No focal deficits. Alert and oriented x3. PSYCH: Normal mood and affect. Course Vital Signs Vital signs: Vital Signs Temperature 98.2 F 03/28/20 10:15 Pulse Rate 96 03/28/20 10:15 Respiratory Rate 18 03/28/20 10:15 Blood Pressure 122/79 03/28/20 10:15 Pulse Oximetry 100 03/28/20 10:15 Temperature 98.2 F 03/28/20 10:15 Pulse Rate 72 03/28/20 13:58 Respiratory Rate 14 03/28/20 13:58 Blood Pressure 100/61 03/28/20 13:58 Pulse Oximetry 100 03/28/20 13:58 Medical Decision Making [facility]
[2020-03-28 11:48] LABS: Basophils Percent Auto 0.1 % (0.2-1.2); Eosinophils Absolute Auto 0.1 K/mm3 (0-0.3); Eosinophils Percent Auto 1.1 % (0-4.4); Hematocrit 45.7 % (37.0-47.0); Hemoglobin 15.6 g/dL (12.0-15.0); Immature Granulocyte Absolute 0.02 K/mm3 (0.00-0.031); Immature Granulocyte Percent A 0.3 % (0-0.5); Lymphocytes Absolute Auto 1.79 K/mm3 (0.9-3.2); Mean Corpuscular HGB Conc 34.1 g/dl (32-36); Mean Corpuscular Volume 93.6 fl (80-100); Mean Platelet Volume 9.4 fl (7.4-10.4); Monocytes Absolute Auto 0.5 K/mm3 (0.1-0.6); Monocytes Percent Auto 6.3 % (2.6-8.5); Neutrophils Absolute Auto 4.8 K/mm3 (1.3-6.7); Neutrophils Percent Auto 67.2 % (45.5-73.1); Platelet Count Result 265 k/mm3 (150-375); Red Blood Count 4.88 M/mm3 (4.2-5.4); Red Cell Distribution Width 12.2 % (11.5-14.5); White Blood Count 7.2 K/mm3 (4.5-10.0)
[2020-03-28 11:53] LABS: Add Urine Microscopic? YES; Appearance Urine Clear (Clear); Bacteria Urine Trace /hpf; Bilirubin Urine Negative (Negative); Blood Urine 1+ (Negative); Color Urine Yellow (Yellow); Glucose Urine UA Negative (Negative); Ketones Urine Negative (Negative); Leukocyte Esterase Ur Negative LEU/UL (Negative); Mucus Urine Rare /lpf; Nitrate Urine Negative (Negative); Protein Urine Negative (Negative); RBC Urine 0-2 /hpf (0-2); Specific Grav Ur 1.011 (1.001-1.035); Squamous Epithelial Cell Urine Occasional /hpf (Few); Urobilinogen Urine Negative mg/dL (<2.0); WBC Urine 0-3 /hpf
[2020-03-28 11:56] LABS: Prothrombin Time 13.3 Seconds (11.1-14.7)
[2020-03-28 11:57] LABS: Partial Thromboplastin Time 30.2 SECONDS (22.3-36.8)
[2020-03-28 11:59] LABS: Estimated CRCL calculation 120 ml/min; Estimated Glomerular Filt Rate > 60
[2020-03-28 11:59] LABS: Alanine Aminotransferase 30 U/L (4-35); Albumin Level 4.9 g/dL (3.5-5.1); Alkaline Phosphatase 44 U/L (38-126); Anion Gap 7 mmol/L (8-16); Aspartate Amino Transferase 32 U/L (14-36); Bilirubin,Total 0.4 mg/dL (0.2-1.3); Blood Urea Nitrogen 17 mg/dL (7-17); Calcium 10.1 mg/dL (8.4-10.2); Carbon Dioxide 29 mmol/L (22-30); Chloride 99 mmol/L (98-107); Estimated CRCL calculation 102 ml/min; Estimated Glomerular Filt Rate > 60; Glucose 93 mg/dL (65-105); Potassium 4.8 mmol/L (3.4-5.0); Sodium 135 mmol/L (137-145)
[2020-03-28] MEDS: METHYLNALTREXONE 12 MG/0.6 ML VIAL SUB-Q (13:18)
[2020-03-28 13:58] VITALS: BP 100/61; PULSE 72; RESP 14; O2SAT 100
== END 2020-03-28 13:46 | disposition home or self-care (01) ==
PROVIDERS: Physician Assistant; Emergency Provider Emergency Medicine
DX: K59.03 Drug induced constipation (principal); N83.202 Unspecified ovarian cyst, left side; F17.210 Nicotine dependence, cigarettes, uncomplicated
CPT/HCPCS: 36415; 74177; 80053; 81001; 85025; 85610; 85730; 96372; 99284; J2212; Q9967

== ENCOUNTER 2020-05-26 14:49 | Emergency (ER) | payer MEDICARE, MEDICAID, SELFPAY ==
--- NOTE | ~2020-05-26 | XR_ITS ---
XR chest 1V portable DATE: 05/26/2020 15:34 INDICATION: Generalized chest pain. TECHNIQUE: Portable AP chest on 05/26/2020 at 1531 hours COMPARISON: 08/17/2017 PA and lateral chest FINDINGS: Normal heart size. No hilar or mediastinal enlargement. No pulmonary infiltrate or consolid ation, pleural effusion or pulmonary vascular congestion or pneumothorax. Included skeletal structure s are unremarkable. IMPRESSION: No active cardiopulmonary disease Reviewed, dictated and finalized at location B. [employer]E [employer]
--- NOTE | 2020-05-26 14:58 | ECG_ITS ---
Measurements Intervals [place] Rate: 80 P: 74 MS: 139 QRS: 71 QRSD: 94 T: 51 QT: 372 QTc: 431 Interpretive Statements SINUS RHYTHM BORDERLINE ST ABNORMALITY- INFERIOR LEADS BORDERLINE ECG Electronically Signed On 05-26-2020 15:13:27 [employer] by Boni French D.O.
[2020-05-26 14:59] VITALS: BP 113/64; PULSE 80; RESP 18; TEMP 37.1; O2SAT 100
--- NOTE | 2020-05-26 15:16 | PC.NURSE ---
resting on stretcher. warm blanket given. alert. oriented. call light in reach. updated patient on plan and waiting for provider for more orders.
--- NOTE | 2020-05-26 15:32 | ED.CHESTPAIN ---
HPI - Chest Pain General Chief Complaint: Chest Pain Stated Complaint: shoulder/chest pain/cold sweats Time Seen by Provider: 05/26/20 14:59 Source: patient Mode of arrival: ambulatory Limitations: no limitations History of Present Illness HPI narrative: This patient is a 29 year old female who presents for evaluation of left chest pain . She reports having intermittent pain x 2 days. Her pain last for a couple minutes and then it resolves. She states she feels pain whenever she is doing anything. She also reports some sob. She last had pain just prior to arrival when she was at [facility]. She denies cough, fever, chills, nausea, vomiting or diarrhea. Related Data Home Medications Medication Instructions Recorded Confirmed No Home Medications 05/26/20 05/26/20 Allergies Allergy/AdvReac Type Severity Reaction Status Date / Time ciprofloxacin Allergy Intermediate eye Verified 05/26/20 16:39 swelling divalproex sodium Allergy Intermediate hives Verified 05/26/20 16:39 Review of Systems Review of Systems: All systems reviewed & are unremarkable except as noted in HPI and below Constitutional: Constitutional: Denies chills and Denies fever(s) ENT: Denies sore throat Cardiovascular: Cardiovascular: Reports chest pain and Denies radiating jaw, neck or arm pain Respiratory: Respiratory: Denies cough, Reports dyspnea and Denies wheezing Gastrointestinal: Gastrointestinal: Denies nausea and Denies vomiting [facility] Past Medical History Medical History (Updated 05/26/20 @ 19:18 by Tonya Cartagena MD) Anemia Angina at rest Anxiety Asthma Bipolar 1 disorder Depression Heart murmur IBS (irritable bowel syndrome) Kidney stones Migraines Ulcer UTI (urinary tract infection) Surgical History Surgical History Deficient knowledge of caesarean delivery x2 History of tubal ligation Hx of tonsillectomy Social History Social History Smoking packs per day: 0.25 Smoking cigarettes per day: 5.0 Years smoked: 13 Smoking pack-years: 3.25 Smoking status: Current every day smoker Tobacco type: cigarettes Additional smoking assessment comments: Pt has been smoking since the age of 15. Gender identity (if verbalized by the patient): Female Exam Const: General: alert Orientation/consciousness: patient oriented x3 HENMT: Head: normocephalic and atraumatic Face and sinus: face symmetric Mouth: Yes Normal oral and palatal mucosa present, Yes oropharynx normal and Yes moist mucous membranes Eyes: EOM: EOMs intact bilaterally Chest: Chest palpation & inspection: tenderness (left ) costochondral junction Resp: Effort & Inspection: normal respiratory effort and no retractions Auscultation: clear to auscultation bilaterally Cardio: Rate: regular rate Rhythm: regular rhythm Heart sounds: no murmurs GI: GI Palp: Yes Soft to palpation, No Tenderness to palpation present (GI) and No Guarding due to palpation present (GI) Auscultation: normal bowel sounds Course Reevaluation(s) Reevaluation #1: I Discussed with patient that labs are normal . She denies any complaints. Date: 05/26/20 Time: 19:17 Vital Signs Vital signs: Vital Signs Temperature 98.8 F 05/26/20 14:59 Pulse Rate 80 05/26/20 14:59 Respiratory Rate 18 05/26/20 14:59 Blood Pressure 113/64 05/26/20 14:59 Pulse Oximetry 100 05/26/20 14:59 Temperature 98.8 F 05/26/20 14:59 Pulse Rate 80 05/26/20 14:59 Respiratory Rate 18 05/26/20 14:59 Blood Pressure 113/64 05/26/20 14:59 Pulse Oximetry 100 05/26/20 14:59 MDM - Chest Pain Lab Data Result diagrams: 05/26/20 15:31 05/26/20 15:31 Labs: Lab Results 05/26/20 05/26/20 05/26/20 Range/Units 15:31 15:31 15:31 WBC 5.9 (4.5-10.0) K/mm3 RBC 3.97 L (4.2-5.4) M/mm3 Hgb 12.7 (12.0-15.0) g/
[2020-05-26 15:41] LABS: Basophils Percent Auto 0.2 % (0.2-1.2); Eosinophils Absolute Auto 0.1 K/mm3 (0-0.3); Eosinophils Percent Auto 1.5 % (0-4.4); Hematocrit 36.3 % (37.0-47.0); Hemoglobin 12.7 g/dL (12.0-15.0); Lymphocytes Absolute Auto 1.81 K/mm3 (0.9-3.2); Lymphocytes Percent Auto 30.6 % (18.3-44.2); Mean Corpuscular Volume 91.4 fl (80-100); Monocytes Absolute Auto 0.4 K/mm3 (0.1-0.6); Monocytes Percent Auto 6.1 % (2.6-8.5); Neutrophils Absolute Auto 3.7 K/mm3 (1.3-6.7); Neutrophils Percent Auto 61.6 % (45.5-73.1); Platelet Count Result 235 k/mm3 (150-375); Red Blood Count 3.97 M/mm3 (4.2-5.4); Red Cell Distribution Width 11.9 % (11.5-14.5); White Blood Count 5.9 K/mm3 (4.5-10.0)
[2020-05-26] MEDS: KETOROLAC 15 MG/ML VIAL (*BKC) IV PUSH (15:43)
[2020-05-26 15:51] LABS: Prothrombin Time 13.6 Seconds (11.1-14.7)
[2020-05-26 15:52] LABS: Partial Thromboplastin Time 29.8 SECONDS (22.3-36.8)
[2020-05-26 15:55] LABS: Anion Gap 7 mmol/L (8-16); Blood Urea Nitrogen 15 mg/dL (7-17); Calcium 9.1 mg/dL (8.4-10.2); Carbon Dioxide 28 mmol/L (22-30); Chloride 104 mmol/L (98-107); Estimated CRCL calculation 102 ml/min; Estimated Glomerular Filt Rate > 60; Glucose 88 mg/dL (65-105); Potassium 3.9 mmol/L (3.4-5.0); Sodium 139 mmol/L (137-145)
[2020-05-26 16:05] LABS: D Dimer 0.27 ug/mL (<0.48)
[2020-05-26 16:07] LABS: Troponin I < 0.012 ng/mL (0.000-0.034)
--- NOTE | 2020-05-26 17:39 | PC.NURSE ---
resting on stretcher. feels better after toradol and rest. updated patient on status of order for repeat trop 3 hours after 1st labs were drawn here.
--- NOTE | 2020-05-26 18:11 | PC.NURSE ---
repeat trop drawn. sent to lab. patient updated on expected wait time.
[2020-05-26 18:41] LABS: Troponin I < 0.012 ng/mL (0.000-0.034)
[2020-05-26 19:24] VITALS: BP 116/60; PULSE 80; RESP 16; O2SAT 100
== END 2020-05-26 19:24 | disposition home or self-care (01) ==
PROVIDERS: Emergency Provider General Practice
DX: R07.89 Other chest pain (principal); D64.9 Anemia, unspecified; K58.9 Irritable bowel syndrome, unspecified; Z87.442 Personal history of urinary calculi; Z87.440 Personal history of urinary (tract) infections; F17.210 Nicotine dependence, cigarettes, uncomplicated; R94.31 Abnormal electrocardiogram [ECG] [EKG]; J45.909 Unspecified asthma, uncomplicated
CPT/HCPCS: 36415; 71045; 80048; 84484; 85025; 85380; 85610; 85730; 93005; 96374; 99284; J1885

== ENCOUNTER 2020-10-04 07:21 | Emergency (ER) | payer MEDICARE, MEDICAID, SELFPAY ==
[2020-10-04] VITALS (11 sets, daily range): BP systolic 96–121; BP diastolic 45–77; PULSE 64–90; RESP 10–21; TEMP 36.6; O2SAT 98–100
--- NOTE | ~2020-10-04 | CT_ITS ---
EXAMINATION: CT abdomen pelvis w con DATE: 10/04/2020 08:20 INDICATION: Right lower quadrant pain TECHNIQUE: Computed tomography (CT) of the abdomen and pelvis was performed with 100 cc Omnipaque 350 intravenous contrast. The dose-length product was 335.38 mGy-cm. Automated exposure control and iter ative reconstruction technique were employed. COMPARISON: CT dated 03/28/2020 FINDINGS: Lung bases within normal limits. No significant pleural or pericardial effusion. No signifi cant vascular abnormality. No lymphadenopathy. The liver, spleen, pancreas, adrenal glands and kidneys are unremarkable. Gallbladder is present. The re are follicular changes in the left ovary. Small amount of free fluid in the pelvis, likely physiol ogic. The appendix is unremarkable. No free air or free fluid. No significant bone or joint abnormali ty. No significant vascular abnormality. Bladder is decompressed limiting evaluation for wall thicken ing. Nonobstructive bowel gas pattern. No free air. IMPRESSION: 1. No acute abdominal abnormality. Reviewed, dictated and finalized at location B.
[2020-10-04 07:52] LABS: Basophils Percent Auto 0.2 % (0.2-1.2); Eosinophils Absolute Auto 0.1 K/mm3 (0-0.3); Eosinophils Percent Auto 1.4 % (0-4.4); Hematocrit 38.2 % (37.0-47.0); Hemoglobin 13.3 g/dL (12.0-15.0); Immature Granulocyte Absolute 0.01 K/mm3 (0.00-0.031); Immature Granulocyte Percent A 0.2 % (0-0.5); Lymphocytes Absolute Auto 1.43 K/mm3 (0.9-3.2); Lymphocytes Percent Auto 24.7 % (18.3-44.2); Mean Corpuscular HGB Conc 34.8 g/dl (32-36); Mean Corpuscular Hemoglobin 32.1 pg (26-34); Mean Corpuscular Volume 92.3 fl (80-100); Mean Platelet Volume 9.2 fl (7.4-10.4); Monocytes Absolute Auto 0.4 K/mm3 (0.1-0.6); Monocytes Percent Auto 6.2 % (2.6-8.5); Neutrophils Absolute Auto 3.9 K/mm3 (1.3-6.7); Neutrophils Percent Auto 67.3 % (45.5-73.1); Platelet Count Result 207 k/mm3 (150-375); Red Blood Count 4.14 M/mm3 (4.2-5.4); Red Cell Distribution Width 12.5 % (11.5-14.5); White Blood Count 5.8 K/mm3 (4.5-10.0)
[2020-10-04 07:58] LABS: Add Urine Microscopic? YES; Appearance Urine Cloudy (Clear); Bilirubin Urine Negative (Negative); Blood Urine 2+ (Negative); Color Urine Amber (Yellow); Glucose Urine UA Negative (Negative); Ketones Urine 1+ mg/dL (Negative); Leukocyte Esterase Ur 2+ LEU/UL (Negative); Mucus Urine Heavy /lpf; Nitrate Urine Negative (Negative); Protein Urine 3+ mg/dL (Negative); RBC Urine >75 /hpf (0-2); Specific Grav Ur 1.023 (1.001-1.035); Squamous Epithelial Cell Urine Many /hpf (Few); WBC Urine >75 /hpf
[2020-10-04] MEDS: SODIUM CHLORIDE 0.9% IV 1,000 ML 999 ML IV CONT (08:01)
[2020-10-04] MEDS: ONDANSETRON INJ 4 MG/2 ML VIAL IV PUSH (08:02)
[2020-10-04 08:04] LABS: Alanine Aminotransferase 17 U/L (4-35); Albumin Level 4.4 g/dL (3.5-5.1); Alkaline Phosphatase 46 U/L (38-126); Anion Gap 6 mmol/L (8-16); Aspartate Amino Transferase 23 U/L (14-36); Bilirubin,Total 0.5 mg/dL (0.2-1.3); Blood Urea Nitrogen 14 mg/dL (7-17); Calcium 8.7 mg/dL (8.4-10.2); Carbon Dioxide 28 mmol/L (22-30); Chloride 105 mmol/L (98-107); Estimated CRCL calculation 118 ml/min; Estimated Glomerular Filt Rate > 60; Glucose 98 mg/dL (65-105); Lipase 111 U/L (23-300); Potassium 3.5 mmol/L (3.4-5.0); Sodium 139 mmol/L (137-145)
--- NOTE | 2020-10-04 08:15 | ED.ABDPAIN ---
HPI - Abdominal Pain General Chief Complaint: Abdominal Pain Stated Complaint: sick for 3 days, hurts when I pee Time Seen by Provider: 10/04/20 07:35 Source: patient and RN notes reviewed Limitations: no limitations History of Present Illness HPI narrative: Patient is 30 years old white female presents with right lower quadrant pain radiating to right flank area, associated with nausea and frequent vomiting, fever and chills, right shoulder pain, frequent urination with little urine output. The above symptoms started 3 days ago, getting worse. History of IBS and hemorrhoids Related Data Home Medications Medication Instructions Recorded Confirmed Adderall 10/04/20 albuterol 10/04/20 Allergies Allergy/AdvReac Type Severity Reaction Status Date / Time ciprofloxacin Allergy Intermediate eye Verified 10/04/20 07:37 swelling divalproex sodium Allergy Intermediate hives Verified 10/04/20 07:37 Review of Systems Review of Systems: Narrative: CONSTITUTIONAL: Denies fever, chills, or sweats. EYES: Denies visual changes, redness, or discharge. ENT: Denies rhinorrhea, congestion, sore throat, or otalgia. CARDIOVASCULAR: Denies chest pain, palpitations, or edema. RESPIRATORY: Denies cough or dyspnea. GASTROINTESTINAL: Denies abdominal pain, nausea, vomiting, or diarrhea. GENITOURINARY: Denies dysuria or hematuria. SKIN: Denies rash or itching. MUSCULOSKELETAL: Denies back pain, joint pain, or myalgia. NEUROLOGIC: Denies headache, numbness, or weakness. PSYCHIATRIC: Denies anxiety or depression. [facility] Past Medical History Medical History (Updated 10/04/20 @ 08:40 by Navid Smith MD) Anemia Angina at rest Anxiety Asthma Bipolar 1 disorder Depression Heart murmur IBS (irritable bowel syndrome) Kidney stones Migraines Ulcer UTI (urinary tract infection) Surgical History Surgical History Deficient knowledge of caesarean delivery x2 History of tubal ligation Hx of tonsillectomy Social History Social History Smoking packs per day: 0.25 Smoking cigarettes per day: 5.0 Years smoked: 13 Smoking pack-years: 3.25 Smoking status: Current every day smoker Tobacco type: cigarettes Additional smoking assessment comments: Pt has been smoking since the age of 15. Gender identity (if verbalized by the patient): Female Exam Narrative: Exam Narrative: General appearance: Well-developed, well-nourished, no significant other at the bedside Skin: Normal color Head: Normocephalic, nontraumatic Eyes: Clear conjunctiva ENT: Oropharynx normal, ears normal, nose normal Neck: Supple, nontender Chest and respiratory: Airway patent, no respiratory distress, no accessory muscle use Heart: Regular rate/rhythm Abdomen: Soft, tenderness of the right lower quadrant right flank, slight guarding, no rebound, quiet bowel sounds Vascular: Normal peripheral pulses, normal capillary refill. Musculoskeletal: Normal range of motion, nontender back Neurologic: Alert and oriented ?3, [employer] is normal as tested, no gross motor deficit Course Course Emergency Course: Stable Reevaluation(s) Reevaluation #1: Patient is able to keep fluid and crackers down, agreed for discharge. Date: 10/04/20 Time: 09:37 Vital Signs Vital signs: Vital Signs Temperature 36.6 C 10/04/20 07:29 Pulse Rate 90 10/04/20 07:29 Respiratory Rate 18 10/04/20 07:29 Blood Pressure 121/77 10/04/20 07:29 Pulse Oximetry 99 10/04/20 07:29 Temperature 36.6 C 10/04/20 07:29 Pulse Rate 78 10/04/20 07:36 Respiratory Rate 18 10/04/20 07:29 Blood P
[2020-10-04] MEDS: KETOROLAC 30 MG/ML VIAL (*BKC) IV PUSH (08:46)
--- NOTE | 2020-10-04 10:08 | PC.NURSE ---
Pt has no emesis from po challenge. States is feeling better. IV dc'd.
== END 2020-10-04 10:15 | disposition home or self-care (01) ==
PROVIDERS: Emergency Provider Emergency Medicine; PCP Family Medicine
DX: N39.0 Urinary tract infection, site not specified (principal); D64.9 Anemia, unspecified; F41.9 Anxiety disorder, unspecified; J45.909 Unspecified asthma, uncomplicated; F31.9 Bipolar disorder, unspecified; Z87.442 Personal history of urinary calculi; Z87.440 Personal history of urinary (tract) infections
CPT/HCPCS: 36415; 74177; 80053; 81001; 81025; 83690; 85025; 87077; 87086; 87088; 87186; 96361; 96365; 96375; 99284; J0696; J1885; J2405; J7030; Q9967

== ENCOUNTER 2021-01-01 14:26 | Emergency (ER) | payer MEDICARE, MEDICAID, SELFPAY ==
--- NOTE | ~2021-01-01 | US_ITS ---
EXAMINATION: US abdomen limited EXAM DATE: 01/01/2021 17:08 INDICATION: Abdominal pain. TECHNIQUE: Multiple grayscale and Doppler images of the abdomen right upper quadrant were obtained (b y a technologist who performed the scan) and subsequently reviewed. Comparison is made to prior exami nation from 11/19/2016. FINDINGS: The pancreatic head and body are normal in appearance. The pancreatic tail is not visualized. The l iver has normal echogenicity and contour. There are no focal liver lesions identified. There is no evidence of intrahepatic biliary duct dilation. Portal venous flow was seen in the hepatopedal, nor mal direction and has normal Doppler waveform. No right-sided hydronephrosis. Common bile duct measures 4 mm, which is normal. The gallbladder wall is normal in thickness, with ex pected amount of distention. No sonographic evidence of pericholecystic fluid. There is no cholelit hiases. Technologist performing exam reports patient did not demonstrate sonographic [place]'s sign. Please note that this sign is less reliable in patients who have received pain medication. IMPRESSION: 1. Unremarkable abdominal ultrasound exam. Reviewed, dictated and finalized at location A.
[2021-01-01 14:36] VITALS: BP 125/82; PULSE 86; RESP 14; TEMP 37.3; O2SAT 100
[2021-01-01 15:02] LABS: Basophils Percent Auto 0.2 % (0.2-1.2); Eosinophils Percent Auto 0.6 % (0-4.4); Hematocrit 40.6 % (37.0-47.0); Hemoglobin 13.7 g/dL (12.0-15.0); Immature Granulocyte Absolute 0.02 K/mm3 (0.00-0.031); Immature Granulocyte Percent A 0.4 % (0-0.5); Lymphocytes Absolute Auto 1.21 K/mm3 (0.9-3.2); Lymphocytes Percent Auto 22.5 % (18.3-44.2); Mean Corpuscular HGB Conc 33.7 g/dl (32-36); Mean Corpuscular Hemoglobin 31.5 pg (26-34); Mean Corpuscular Volume 93.3 fl (80-100); Monocytes Absolute Auto 0.3 K/mm3 (0.1-0.6); Monocytes Percent Auto 5.8 % (2.6-8.5); Neutrophils Absolute Auto 3.8 K/mm3 (1.3-6.7); Neutrophils Percent Auto 70.5 % (45.5-73.1); Platelet Count Result 200 k/mm3 (150-375); Red Blood Count 4.35 M/mm3 (4.2-5.4); Red Cell Distribution Width 12.1 % (11.5-14.5); White Blood Count 5.4 K/mm3 (4.5-10.0)
[2021-01-01 15:08] LABS: Alanine Aminotransferase 19 U/L (4-35); Albumin Level 4.8 g/dL (3.5-5.1); Alkaline Phosphatase 49 U/L (38-126); Anion Gap 9 mmol/L (8-16); Aspartate Amino Transferase 26 U/L (14-36); Bilirubin,Total 0.2 mg/dL (0.2-1.3); Blood Urea Nitrogen 10 mg/dL (7-17); Calcium 9.5 mg/dL (8.4-10.2); Carbon Dioxide 25 mmol/L (22-30); Chloride 105 mmol/L (98-107); Estimated CRCL calculation 101 ml/min; Estimated Glomerular Filt Rate > 60; Glucose 95 mg/dL (65-105); Lipase 152 U/L (23-300); Sodium 139 mmol/L (137-145)
--- NOTE | 2021-01-01 16:34 | PC.NURSE ---
Pt declined straight cath, will attempt to provide u/a.
--- NOTE | 2021-01-01 16:34 | ED.GENADULT ---
HPI - General Adult General Chief complaint: Abdominal Pain Stated complaint: ABD pain x1 week Time Seen by Provider: 01/01/21 16:12 Source: patient History of Present Illness HPI narrative: Patient is a 30 y/o female complaining of right upper abdominal pain starting 1 week ago. She describes her pain as burning and rates it as 8-10/10. There is no pain radiation. She took Ibuprofen, which usually provides some relief usually for 1 hour. She also has vomiting and diarrhea. Related Data Home Medications Medication Instructions Recorded Confirmed Adderall 10/04/20 albuterol 10/04/20 Allergies Allergy/AdvReac Type Severity Reaction Status Date / Time ciprofloxacin Allergy Intermediate eye Verified 01/01/21 16:51 swelling divalproex sodium Allergy Intermediate hives Verified 01/01/21 16:51 Review of Systems Constitutional: Constitutional: Denies chills, Denies fever(s), Denies headache(s) and Denies weakness Eyes: Eyes: Denies blurry vision ENT: Denies headache(s) and Denies neck pain Cardiovascular: Cardiovascular: Denies chest pain and Denies dyspnea Respiratory: Respiratory: Denies cough and Denies dyspnea Gastrointestinal: Gastrointestinal: Reports abdominal pain, Reports diarrhea, Reports nausea and Reports vomiting Genitourinary: Genitourinary: Denies hematuria and Denies dysuria Musculoskeletal: Musculoskeletal: Denies back pain and Denies neck pain Neurologic: Denies headache(s) and Denies weakness PMFSH Past Medical History Medical History (Updated 01/01/21 @ 19:11 by Haily Castelan MD) Anemia Angina at rest Anxiety Asthma Bipolar 1 disorder Depression Heart murmur IBS (irritable bowel syndrome) Kidney stones Migraines Ulcer UTI (urinary tract infection) Surgical History Surgical History Deficient knowledge of caesarean delivery x2 History of tubal ligation Hx of tonsillectomy Social History Social History Smoking packs per day: 0.25 Smoking cigarettes per day: 5.0 Years smoked: 13 Smoking pack-years: 3.25 Smoking status: Current every day smoker Tobacco type: cigarettes Additional smoking assessment comments: Pt has been smoking since the age of 15. Gender identity (if verbalized by the patient): Female Exam Const: General: no acute distress and well developed Orientation/consciousness: oriented to person, oriented to place, oriented to time and patient oriented x3 HENMT: Head: normocephalic Ears: external ears normal General nose exam: Normal external nose present Eyes: General: appearance normal, both eyes and all related structures Conjunctivae: conjunctivae normal Neck: Neck: normal visual inspection and full ROM Chest: Chest palpation & inspection: normal inspection of the chest and no tenderness Resp: Effort & Inspection: normal respiratory effort Auscultation: clear to auscultation bilaterally Cardio: Rate: regular rate Rhythm: regular rhythm GI: GI Palp: No abdominal tenderness and Yes Soft to palpation Skin: General skin exam: normal color and turgor normal Neuro: General: oriented to person, oriented to place, oriented to time and patient oriented x3 Cognition (Neuro): normal cognition Extrem: General: normal to inspection, full ROM and no pedal edema Psych: Appearance: grossly normal Mental Status: mental status grossly normal Affect: normal affect Course Vital Signs Vital signs: Vital Signs Temperature 37.3 C 01/01/21 14:36 Pulse Rate 86 01/01/21 14:36 Respiratory Rate 14 01/01/21 14:36 Blood Pressure 125/82 01/01/21 14:36 Pulse Oximetry 100 01/01/21 14:36 Temperature 37.3 C 01/01/21 14:36 Pulse Rate 58 L 01/01/21 18:42 Respiratory Rate 18 01/01/21 18:42 Blood Pressure 94/51 L 01/01/21 18:42 Pulse Oximetry 100 01/01/21 18:42 Medical Decision Making Vital Signs Vital
[2021-01-01 16:40] VITALS: BP 128/82; PULSE 82; RESP 18; O2SAT 98
--- NOTE | 2021-01-01 16:50 | PC.NURSE ---
u/s at bedside for exam at this time
--- NOTE | 2021-01-01 16:54 | PC.NURSE ---
called lab, Milind, requested preg test on urine cup sent down
[2021-01-01 17:06] LABS: Add Urine Microscopic? NO; Appearance Urine Clear (Clear); Bilirubin Urine Negative (Negative); Blood Urine Negative (Negative); Color Urine Straw (Yellow); Glucose Urine UA Negative (Negative); Ketones Urine Negative (Negative); Leukocyte Esterase Ur Negative LEU/UL (Negative); Nitrate Urine Negative (Negative); Protein Urine Negative (Negative); Specific Grav Ur 1.006 (1.001-1.035); Urobilinogen Urine Negative mg/dL (<2.0)
[2021-01-01 17:18] LABS: Pregnancy On Board Control Positive; Urine Pregnancy Test Negative
[2021-01-01] MEDS: SODIUM CHLORIDE 0.9% IV 1,000 ML 999 ML IV CONT (17:26)
[2021-01-01] MEDS: METOCLOPRAMIDE HCL INJ 10 MG/2 ML VIAL IV PUSH (17:26)
[2021-01-01] MEDS: KETOROLAC 30 MG/ML VIAL (*BKC) IV PUSH (17:26)
[2021-01-01 17:30] LABS: Amphetamine Screen Urine Negative (Negative); Barbiturate Screen Urine Negative (Negative); Benzodiazepines Screen Urine Negative (Negative); Cannabinoid Screen Urine Negative (Negative); Cocaine Screen Urine Negative (Negative); Methadone Screen Urine Negative (Negative); Opiate Screen Urine Negative (Negative); Phencyclidine Screen Urine Negative (Negative)
[2021-01-01 18:42] VITALS: BP 94/51; PULSE 58; RESP 18; O2SAT 100
== END 2021-01-01 19:18 | disposition home or self-care (01) ==
PROVIDERS: Emergency Medicine; Emergency Provider Emergency Medicine; PCP Family Medicine
DX: K52.9 Noninfective gastroenteritis and colitis, unspecified (principal); F17.210 Nicotine dependence, cigarettes, uncomplicated
CPT/HCPCS: 36415; 76705; 80053; 80307; 81003; 81025; 83690; 85025; 96361; 96374; 96375; 99284; J1885; J2765; J7030

== ENCOUNTER 2021-10-30 16:02 | Emergency (ER) | payer OTHER, SELFPAY ==
--- NOTE | ~2021-10-30 | US_ITS ---
EXAMINATION: US pelvic complete w TV DATE: 10/30/2021 18:16 INDICATION: Pelvic pain TECHNIQUE: Multiple transabdominal and endovaginal sonographic images of the pelvis were obtained. COMPARISON: 03/20/2020 FINDINGS: The uterus measures 8.7 x 4.7 x 4.0 cm. The endometrial complex measures 10 mm. An area of scarring is seen anteriorly in the lower uterine segment, consistent with prior section. The right ovary measures 3.4 x 2.6 x 2.6 cm. The left ovary measures 3.0 x 1.9 x 1.5 cm. There is normal vascular flow in the ovaries. There is a small amount of likely physiologic free fluid in the pelvis . IMPRESSION: 1. No sonographic correlate for the patient's symptoms. Reviewed, dictated and finalized at location F.
--- NOTE | ~2021-10-30 | CT_ITS ---
EXAMINATION: CT abdomen pelvis w con INDICATION: Right lower quadrant pain and swelling TECHNIQUE: Computed tomographic images of the abdomen and pelvis were obtained after the administrati on of 100 cc of Omnipaque 350 intravenous contrast. The dose-length product (DLP) was 270.15 mGy-cm. Automated exposure control and iterative reconstruction technique were employed. COMPARISON: 10/04/2020 FINDINGS: The lung bases are clear. The heart size is normal. The liver, spleen, pancreas, gallbladde r, and adrenal glands are normal. The kidneys are unremarkable. There is a large amount of ingested m aterial in the stomach. No pathologically enlarged abdominal or pelvic lymph nodes are identified. Th ere is no free intraperitoneal gas or evidence of bowel obstruction. The appendix is not definitely i dentified although no right lower quadrant inflammatory changes seen. IMPRESSION: 1. No CT correlate for the patient's symptoms. Reviewed, dictated and finalized at location F.
[2021-10-30 16:07] VITALS: BP 126/70; PULSE 104; RESP 18; TEMP 36.4; O2SAT 100
[2021-10-30 16:35] LABS: Basophils Percent Auto 0.4 % (0.2-1.2); Eosinophils Absolute Auto 0.1 K/mm3 (0-0.3); Eosinophils Percent Auto 1.2 % (0-4.4); Hematocrit 41.5 % (37.0-47.0); Hemoglobin 13.7 g/dL (12.0-15.0); Immature Granulocyte Absolute 0.02 K/mm3 (0.00-0.031); Immature Granulocyte Percent A 0.3 % (0-0.5); Lymphocytes Percent Auto 27.6 % (18.3-44.2); Mean Corpuscular Hemoglobin 31.4 pg (26-34); Mean Platelet Volume 8.9 fl (7.4-10.4); Monocytes Absolute Auto 0.5 K/mm3 (0.1-0.6); Neutrophils Absolute Auto 4.9 K/mm3 (1.3-6.7); Neutrophils Percent Auto 64.5 % (45.5-73.1); Platelet Count Result 257 k/mm3 (150-375); Red Blood Count 4.37 M/mm3 (4.2-5.4); Red Cell Distribution Width 13.1 % (11.5-14.5); White Blood Count 7.6 K/mm3 (4.5-10.0)
[2021-10-30 16:40] LABS: Add Urine Microscopic? YES; Amorphous Sediment Urine Few; Appearance Urine Cloudy (Clear); Bacteria Urine Trace /hpf; Bilirubin Urine Negative (Negative); Blood Urine Negative (Negative); Color Urine Yellow (Yellow); Glucose Urine UA Negative (Negative); Ketones Urine Negative (Negative); Leukocyte Esterase Ur Trace LEU/UL (Negative); Mucus Urine Few /lpf; Nitrate Urine Negative (Negative); Protein Urine Negative (Negative); Specific Grav Ur 1.016 (1.001-1.035); Squamous Epithelial Cell Urine Few /hpf (Few); Urobilinogen Urine Negative mg/dL (<2.0)
[2021-10-30 16:44] LABS: Alanine Aminotransferase 18 U/L (4-35); Albumin Level 4.8 g/dL (3.5-5.1); Alkaline Phosphatase 53 U/L (38-126); Anion Gap 8 mmol/L (8-16); Aspartate Amino Transferase 25 U/L (14-36); Bilirubin,Total 0.4 mg/dL (0.2-1.3); Blood Urea Nitrogen 11 mg/dL (7-17); Calcium 9.2 mg/dL (8.4-10.2); Carbon Dioxide 26 mmol/L (22-30); Chloride 105 mmol/L (98-107); Estimated CRCL calculation 112 ml/min; Estimated Glomerular Filt Rate > 60; Glucose 86 mg/dL (65-110); Lipase 215 U/L (23-300); Potassium 3.6 mmol/L (3.4-5.0); Sodium 139 mmol/L (137-145)
--- NOTE | 2021-10-30 17:18 | ED.GENADULT ---
HPI - General Adult General Chief complaint: Unspecified Stated complaint: positive test and pelvic pain Time Seen by Provider: 10/30/21 17:11 Source: patient Mode of arrival: ambulatory Limitations: no limitations History of Present Illness HPI narrative: This is a 31-year-old female that presents to the emergency department for pelvic pain. Ongoing for the last week. Associated with bloating. Reports she had a positive home test. She has had a bilateral salpingectomy. Reports some dysuria. Reports no concern for STDs. Denies fever, vomiting, abnormal vaginal drainage or hematuria. Related Data Home Medications Medication Instructions Recorded Confirmed albuterol sulfate 2 puff INHALATION QID PRN 10/30/21 10/30/21 hydroxyzine pamoate 25 mg PO PRN 10/30/21 10/30/21 quetiapine 200 mg PO HS 10/30/21 10/30/21 Allergies Allergy/AdvReac Type Severity Reaction Status Date / Time ciprofloxacin Allergy Intermediate eye Verified 10/30/21 16:23 swelling divalproex sodium Allergy Intermediate hives Verified 10/30/21 16:23 Review of Systems Review of Systems: CONSTITUTIONAL: Denies fever GASTROINTESTINAL: Reports abdominal pain. Denies nausea, vomiting GENITOURINARY: Reports dysuria. Denies hematuria. All systems reviewed & are unremarkable except as noted in HPI and below PMFSH Past Medical History Medical History (Updated 10/30/21 @ 19:57 by Annette Serna PA-C) Anemia Angina at rest Anxiety Asthma Bipolar 1 disorder Depression Heart murmur IBS (irritable bowel syndrome) Kidney stones Migraines Ulcer UTI (urinary tract infection) Surgical History Surgical History Deficient knowledge of caesarean delivery x2 History of tubal ligation Hx of tonsillectomy Social History Social History Smoking packs per day: 0.25 Smoking cigarettes per day: 5.0 Years smoked: 13 Smoking pack-years: 3.25 Smoking status: Current every day smoker Tobacco type: cigarettes Additional smoking assessment comments: Pt has been smoking since the age of 15. Gender identity (if verbalized by the patient): Female Exam Narrative: GENERAL: Well-appearing, well-nourished, and in no acute distress. HEAD: Normocephalic, atraumatic. EYES: EOMI. CHEST: Clear to auscultation. No respiratory distress. No wheezes rales or rhonchi HEART: Regular rate and rhythm. No murmur heard. Normal peripheral pulses. ABDOMEN: Soft, nondistended, normal active bowel sounds. Mild tenderness to palpation throughout the lower abdomen, without guarding. No CVA tenderness EXTREMITIES: Normal range of motion. No edema. SKIN: Warm, dry, no rash. NEURO: No focal deficits. Alert and oriented x3. PSYCH: Normal mood and affect Course Vital Signs Vital signs: Vital Signs Temperature 97.5 F L 10/30/21 16:07 Pulse Rate 104 H 10/30/21 16:07 Respiratory Rate 18 10/30/21 16:07 Blood Pressure 126/70 10/30/21 16:07 Pulse Oximetry 100 10/30/21 16:07 Temperature 97.5 F L 10/30/21 16:07 Pulse Rate 103 H 10/30/21 19:02 Respiratory Rate 18 10/30/21 19:02 Blood Pressure 101/62 10/30/21 19:02 Pulse Oximetry 100 10/30/21 19:02 Medical Decision Making MDM Narrative Medical decision making narrative: Patient presents to the emergency department for lower abdominal discomfort and dysuria. She is afebrile and nontoxic-appearing. Her vitals are stable. CBC and metabolic panel without concerning findings. UA with evidence of infection. Bedside test is negative. Pelvic ultrasound without concerning findings. CT scan of the abdomen and pelvis without acute findings. Patient was updated on case findings. Will be given first dose of antibiotics IV in the ED. Will be discharged on oral antibiotics. She is stable and felt appropriate for further outpatient evaluation. She was given traci
[2021-10-30] MEDS: SODIUM CHLORIDE 0.9% IV 500 ML 999 ML IV CONT (17:35)
--- NOTE | 2021-10-30 17:56 | PC.NURSE ---
Pt to U/S via stretcher at this time.
[2021-10-30 19:02] VITALS: BP 101/62; PULSE 103; RESP 18; O2SAT 100
--- NOTE | 2021-10-30 19:45 | PC.NURSE ---
Handoff received from Aminah TINAJERO. Pt found sleeping in ED stretcher. Calm and cooperative. AAOX4. Equal and unlabored resp. Skin is warm and dry. IV in place secured and patent. Vitals WNL. No complain at this time.
[2021-10-30 20:40] VITALS: BP 107/60; PULSE 83; RESP 16; O2SAT 98
== END 2021-10-30 20:41 | disposition home or self-care (01) ==
PROVIDERS: Emergency Provider Emergency Medicine; PCP Family Medicine
DX: N39.0 Urinary tract infection, site not specified (principal); F31.9 Bipolar disorder, unspecified; F17.210 Nicotine dependence, cigarettes, uncomplicated; Z86.2 Personal history of diseases of the blood and blood-forming organs and certain disorders involving the immune mechanism; Z87.442 Personal history of urinary calculi; Z86.69 Personal history of other diseases of the nervous system and sense organs; Z87.440 Personal history of urinary (tract) infections; Z90.79 Acquired absence of other genital organ(s)
CPT/HCPCS: 36415; 74177; 76830; 76856; 80053; 81001; 81025; 83690; 85025; 87086; 96365; 96367; 99284; J0131; J0696; J7040; Q9967

== ENCOUNTER 2022-02-08 16:10 | Emergency (ER) | payer OTHER, SELFPAY ==
--- NOTE | ~2022-02-08 | XR_ITS ---
EXAMINATION: XR abdomen/kub 1V DATE: 02/08/2022 17:21 INDICATION: Abdominal pain and swelling TECHNIQUE: A supine view of the abdomen on 2 radiographs was obtained. COMPARISON: CT dated 10/30/2021 FINDINGS: No dilated loops of gas-filled bowel in the abdomen or pelvis. No evident organomegaly or suspicious calcifications in the abdomen or pelvis. Visualized mid to lower lungs are clear. Heart size is belinda l. Bones and soft tissues are unremarkable. IMPRESSION: 1. Normal study. Reviewed, dictated and finalized at location A. IMPRESSION: 1. Normal study.
[2022-02-08 16:23] VITALS: BP 116/81; PULSE 87; RESP 18; TEMP 36.7; O2SAT 99
--- NOTE | 2022-02-08 17:12 | ED.GENADULT ---
HPI - General Adult General Chief complaint: Unspecified Stated complaint: nose wound, nose bleeds, abd swelling, breast leak Time Seen by Provider: 02/08/22 17:00 History of Present Illness HPI narrative: 31-year-old female presents emergency room for evaluation of a wound to her nose that has been present for approximately 10 days. Patient states that she was camping and noticed a small bug bite just to the right side of her nose, she attempted to drain the pustule. Following day she noticed hard reddened area that began to radiate to the medial side of her eye. Patient is also complaining of a clear discharge from her left breast for approximately 6 weeks. Patient also complains of left-sided abdominal pain that is intermittent, describes it as dull and has been present for 6 weeks. Denies any nausea or vomiting constipation or diarrhea. Denies dysuria. Denies fever. Related Data Home Medications Medication Instructions Recorded Confirmed albuterol 90 mcg/actuation aerosol mcg inhalation 02/08/22 inhaler Allergies Allergy/AdvReac Type Severity Reaction Status Date / Time ciprofloxacin Allergy Intermediate eye Verified 02/08/22 16:29 swelling divalproex sodium Allergy Intermediate hives Verified 02/08/22 16:29 Review of Systems Review of Systems: CONSTITUTIONAL: Denies fever, chills, or sweats. EYES: Denies visual changes, redness, or discharge. ENT: Denies rhinorrhea, congestion, sore throat, or otalgia. CARDIOVASCULAR: Denies chest pain, palpitations, or edema. RESPIRATORY: Denies cough or dyspnea. GASTROINTESTINAL: Reports abdominal pain GENITOURINARY: Denies dysuria or hematuria. SKIN: Reports lesion to face MUSCULOSKELETAL: Denies back pain, joint pain, or myalgia. NEUROLOGIC: Denies headache, numbness, dizziness, or weakness. PSYCHIATRIC: Denies anxiety or depression. [facility] Past Medical History Medical History (Updated 02/08/22 @ 18:47 by Kuldeep Becerril APRN) Anemia Angina at rest Anxiety Asthma Bipolar 1 disorder Depression Heart murmur IBS (irritable bowel syndrome) Kidney stones Migraines Ulcer UTI (urinary tract infection) Surgical History Surgical History Deficient knowledge of caesarean delivery x2 History of tubal ligation Hx of tonsillectomy Social History Social History Smoking packs per day: 0.25 Smoking cigarettes per day: 5.0 Years smoked: 13 Smoking pack-years: 3.25 Smoking status: Current every day smoker Tobacco type: cigarettes Additional smoking assessment comments: Pt has been smoking since the age of 15. Gender identity (if verbalized by the patient): Female Exam Narrative: GENERAL: Well-appearing, well-nourished, no physical limitations, and in no acute distress. HEAD: Normocephalic, atraumatic. EYES: Conjunctivae normal, PERRLA and EOMI. ENT: External nose normal, Nares clear, no rhinorrhea or epistaxis. Mucous membranes moist. Oropharynx without tonsillar hypertrophy exudate or other lesions. External ears normal, bilateral TMs normal bilaterally NECK: Supple. No meningeal signs. No adenopathy or masses. No carotid bruits or JVD CHEST: Clear to auscultation. No respiratory distress. No wheezes rales or rhonchi. No tenderness. HEART: Regular rate and rhythm. No murmur heard. Normal peripheral pulses. ABDOMEN: Soft, nontender, nondistended, normal active bowel sounds. BACK: No CVA tenderness; No cervical/thoracic/lumbar tenderness, step-offs, bony abnormality; FROM EXTREMITIES: Normal range of motion. No edema. No clubbing or cyanosis SKIN: Warm, dry, no rash. 1 cm erythematous/scab noted to right superior maxilla with induration into the lacrimal area NEURO: No focal deficits. Alert and oriented x3. MAEW. CN's II-XI intact bilaterally, normal gait PSYCH: Cooperative. Normal mood and affect. Course Vital Signs Vital signs:
[2022-02-08 17:48] LABS: Appearance Urine Slightly Cloudy (Clear); Bilirubin Urine Negative (Negative); Blood Urine Negative (Negative); Color Urine Yellow (Yellow); Glucose Urine UA Negative (Negative); Ketones Urine Negative (Negative); Leukocyte Esterase Ur Negative LEU/UL (Negative); Nitrate Urine Negative (Negative); Protein Urine Negative (Negative); Specific Grav Ur 1.025 (1.001-1.035); Urobilinogen Urine 0.2 mg/dL (<2.0); pH Urine 6.5 (5.0-9.0)
[2022-02-08 17:54] LABS: Mucus Urine Rare /lpf; RBC Urine 0-2 /hpf (0-2); Squamous Epithelial Cell Urine Moderate /hpf (Few); WBC Urine 0-3 /hpf
[2022-02-08 18:03] LABS: Add Urine Microscopic? YES
[2022-02-08 18:06] LABS: Basophils Percent Auto 0.2 % (0.2-1.2); Eosinophils Absolute Auto 0.1 K/mm3 (0-0.3); Eosinophils Percent Auto 1.3 % (0-4.4); Hematocrit 37.8 % (37.0-47.0); Hemoglobin 12.4 g/dL (12.0-15.0); Immature Granulocyte Absolute 0.01 K/mm3 (0.00-0.031); Immature Granulocyte Percent A 0.2 % (0-0.5); Lymphocytes Absolute Auto 1.42 K/mm3 (0.9-3.2); Mean Corpuscular HGB Conc 32.8 g/dl (32-36); Mean Corpuscular Hemoglobin 31.1 pg (26-34); Mean Corpuscular Volume 94.7 fl (80-100); Monocytes Absolute Auto 0.3 K/mm3 (0.1-0.6); Monocytes Percent Auto 5.9 % (2.6-8.5); Neutrophils Percent Auto 62.4 % (45.5-73.1); Platelet Count Result 256 k/mm3 (150-375); Red Blood Count 3.99 M/mm3 (4.2-5.4); Red Cell Distribution Width 12.8 % (11.5-14.5); White Blood Count 4.7 K/mm3 (4.5-10.0)
[2022-02-08 18:08] LABS: Alanine Aminotransferase 51 U/L (6-35); Albumin Level 4.5 g/dL (3.5-5.1); Alkaline Phosphatase 50 U/L (38-126); Anion Gap 8 mmol/L (8-16); Aspartate Amino Transferase 30 U/L (14-36); Bilirubin,Total 0.5 mg/dL (0.2-1.3); Blood Urea Nitrogen 13 mg/dL (7-17); Calcium 8.3 mg/dL (8.4-10.2); Carbon Dioxide 27 mmol/L (22-30); Chloride 101 mmol/L (98-107); Estimated CRCL calculation 100 ml/min; Estimated Glomerular Filt Rate > 60; Glucose 108 mg/dL (65-110); Potassium 3.8 mmol/L (3.4-5.0); Sodium 136 mmol/L (137-145)
== END 2022-02-08 18:36 | disposition home or self-care (01) ==
PROVIDERS: Emergency Provider Nurse Practitioner Family; PCP Family Medicine
DX: L03.211 Cellulitis of face (principal); L02.01 Cutaneous abscess of face; O92.6 Galactorrhea; R10.9 Unspecified abdominal pain; J45.909 Unspecified asthma, uncomplicated; K58.9 Irritable bowel syndrome, unspecified; Z86.2 Personal history of diseases of the blood and blood-forming organs and certain disorders involving the immune mechanism; Z87.442 Personal history of urinary calculi; Z87.440 Personal history of urinary (tract) infections
CPT/HCPCS: 36415; 74018; 80053; 81001; 81025; 84443; 85025; 99283

== ENCOUNTER 2023-02-18 09:06 | Outpatient (CLI) | payer OTHER, SELFPAY ==
[2023-02-18 14:51] LABS: Immunochemical Fecal Occult Bl Negative (N)
[2023-02-18 14:52] LABS: IFOB Positive Control Positive
[2023-02-22 11:29] LABS: Immunoglobulin A 84 mg/dL (47-310); TTG IGA AB <1.0 U/mL (<15.0)
[2023-02-25 23:43] LABS: Calprotectin, Stool 66 mcg/g
== END 2023-02-18 09:07 | disposition home or self-care (01) ==
PROVIDERS: PCP Family Medicine; Visit Provider Family Medicine
DX: R19.7 Diarrhea, unspecified (principal)
CPT/HCPCS: 36415; 82274; 82784; 83993; 86364; 87045; 87177; 87209; 87427; 87449; 89055

== ENCOUNTER 2023-04-08 18:42 | Emergency (ER) | payer OTHER, SELFPAY ==
--- NOTE | ~2023-04-08 | CT_ITS ---
EXAMINATION: CT abdomen pelvis w con DATE: 04/08/2023 22:25 INDICATION: Left flank pain. TECHNIQUE: Computed tomography (CT) of the abdomen and pelvis was performed with 100 mL Omnipaque 350 intravenous contrast. Automated exposure control and iterative reconstruction technique were employe d. The dose-length product was 500.77 mGy-cm. COMPARISON: CT abdomen and pelvis 10/30/2021 FINDINGS: The visualized portions of the lung bases demonstrate mild atelectasis. No pleural effusion . The heart size is normal. No pericardial effusion. The liver, gallbladder, spleen, pancreas, adrena l glands, and left kidney are normal. There is a 3 mm stone in right kidney. There is physiologic flu id in the pelvis. There are no dilated loops of bowel. The appendix is normal. There are no pathologi mayda enlarged lymph nodes. There is dextrocurvature of thoracolumbar spine. IMPRESSION: 1. No etiology for the patient's symptoms. Reviewed, dictated and finalized at location E.
[2023-04-08 19:00] VITALS: BP 124/80; PULSE 69; RESP 20; TEMP 36.4; O2SAT 100
[2023-04-08 19:21] VITALS: BP 123/88; PULSE 82; RESP 17; O2SAT 98
[2023-04-08 20:24] LABS: Appearance Urine Turbid (Clear); Bacteria Urine 2+ /hpf; Bilirubin Urine Negative (Negative); Blood Urine 3+ (Negative); Color Urine Yellow (Yellow); Glucose Urine UA Negative (Negative); Ketones Urine Negative (Negative); Leukocyte Esterase Ur 1+ LEU/UL (Negative); Nitrate Urine Positive (Negative); Non Pathogenic Casts 0-2; Protein Urine 1+ mg/dL (Negative); Specific Grav Ur 1.016 (1.001-1.035); Squamous Epithelial Cell Urine None seen /hpf (Few); WBC Urine >100 /hpf; pH Urine 7.5 (5.0-9.0)
[2023-04-08 20:35] LABS: Basophils Percent Auto 0.1 % (0.2-1.2); Eosinophils Absolute Auto 0.1 K/mm3 (0-0.3); Eosinophils Percent Auto 1.4 % (0-4.4); Hematocrit 36.8 % (37.0-47.0); Hemoglobin 12.3 g/dL (12.0-15.0); Immature Granulocyte Absolute 0.01 K/mm3 (0.00-0.031); Immature Granulocyte Percent A 0.1 % (0-0.5); Lymphocytes Absolute Auto 1.91 K/mm3 (0.9-3.2); Lymphocytes Percent Auto 24.8 % (18.3-44.2); Mean Corpuscular HGB Conc 33.4 g/dl (32-36); Mean Corpuscular Hemoglobin 31.1 pg (26-34); Mean Corpuscular Volume 92.9 fl (80-100); Mean Platelet Volume 9.4 fl (7.4-10.4); Monocytes Absolute Auto 0.4 K/mm3 (0.1-0.6); Monocytes Percent Auto 5.1 % (2.6-8.5); Neutrophils Absolute Auto 5.3 K/mm3 (1.3-6.7); Neutrophils Percent Auto 68.5 % (45.5-73.1); Platelet Count Result 226 k/mm3 (150-375); Red Blood Count 3.96 M/mm3 (4.2-5.4); Red Cell Distribution Width 12.6 % (11.5-14.5); White Blood Count 7.7 K/mm3 (4.5-10.0)
[2023-04-08 20:37] LABS: Add Urine Microscopic? YES
[2023-04-08] MEDS: MORPHINE SULFATE (*CRX) 2 MG/ML INJ IV PUSH (20:41)
[2023-04-08] MEDS: ONDANSETRON INJ 4 MG/2 ML VIAL IV PUSH (20:42)
[2023-04-08] MEDS: KETOROLAC 15 MG/ML VIAL (*BKC) IV PUSH (20:42)
--- NOTE | 2023-04-08 20:48 | ED.BACK ---
HPI - Back Pain/Injury General Chief Complaint: Back Pain/Injury Stated Complaint: left flank pain Time Seen by Provider: 04/08/23 19:28 History of Present Illness HPI Narrative: Patient presents the emergency department from home with increasing left flank pain. She has had symptoms for the past couple weeks getting worse. She was seen in urgent care and then at [facility]. She was told she did not have a UTI at both places but was given antibiotics. She did not have a CAT scan done. Her left flank is tender and she is having difficulty urinating. Denies fevers and chills. Related Data Home Medications Medication Instructions Recorded Confirmed albuterol 90 mcg/actuation aerosol mcg inhalation 02/08/22 inhaler Allergies Allergy/AdvReac Type Severity Reaction Status Date / Time ciprofloxacin Allergy Intermediate eye Verified 02/08/22 16:29 swelling divalproex sodium Allergy Intermediate hives Verified 02/08/22 16:29 Review of Systems Review of Systems: Review of systems negative except what is documented in the [facility] Past Medical History Medical History (Updated 04/08/23 @ 23:36 by Akila Johns MD) Anemia Angina at rest Anxiety Asthma Bipolar 1 disorder Depression Heart murmur IBS (irritable bowel syndrome) Kidney stones Migraines Ulcer UTI (urinary tract infection) Surgical History Surgical History Deficient knowledge of caesarean delivery x2 History of tubal ligation Hx of tonsillectomy Social History Social History Smoking packs per day: 0.25 Smoking cigarettes per day: 5.0 Years smoked: 13 Smoking pack-years: 3.25 Smoking status: Current every day smoker Tobacco type: cigarettes Additional smoking assessment comments: Pt has been smoking since the age of 15. Gender identity (if verbalized by the patient): Female Exam Narrative: GENERAL: Well-appearing, well-nourished, and in no acute distress. HEAD: Normocephalic, atraumatic. EYES: PERRLA and EOMI. ENT: Nares clear, no rhinorrhea or epistaxis. Mucous membranes moist. NECK: Supple. CHEST: Clear to auscultation. No respiratory distress. Left flank pain HEART: Regular rate and rhythm. ABDOMEN: Soft, nontender, nondistended. EXTREMITIES: Normal range of motion. No edema. SKIN: Warm, dry, no rash. NEURO: No focal deficits. Alert and oriented x3. PSYCH: Normal mood and affect. Course Course Emergency Course: Differential diagnosis includes but not limited to kidney stone, pyelonephritis, colitis, diverticulitis Vital Signs Vital signs: Vital Signs Temperature 36.4 C 04/08/23 19:00 Pulse Rate 69 04/08/23 19:00 Respiratory Rate 20 04/08/23 19:00 Blood Pressure 124/80 04/08/23 19:00 Pulse Oximetry 100 04/08/23 19:00 Oxygen Delivery Room Air 04/08/23 19:00 Temperature 36.4 C 04/08/23 19:00 Pulse Rate 67 04/08/23 23:05 Respiratory Rate 16 04/08/23 23:05 Blood Pressure 104/64 04/08/23 23:05 Pulse Oximetry 96 04/08/23 23:05 Oxygen Delivery Room Air 04/08/23 19:00 MDM - Back Pain/Injury MDM Narrative Medical decision making narrative: CT abdomen pelvis ordered and unremarkable. No signs consistent with pyelonephritis or kidney stone. However urine significant for urinary tract infection. Will DC with antibiotics and pain meds. Shared decision making with patient regarding medication use and when to return to the emergency department Lab Data 04/08/23 20:30 04/08/23 20:30 Labs: Lab Results 04/08/23 04/08/23 Range/Units 20:09 20:30 WBC 7.7 (4.5-10.0) K/mm3 RBC 3.96 L (4.2-5.4) M/mm3 Hgb 12.3 (12.0-15.0) g/dL Hct 36.8 L (37.0-47.0) % MCV 92.9 (80-100) fl MCH 31.1 (26-34) pg MCHC 33.4 (32-36) g/dl RDW 12.6 (11.5-14.5) % Plt Count 226 (150-375)
[2023-04-08 20:49] LABS: Alanine Aminotransferase 20 U/L (6-35); Albumin Level 4.2 g/dL (3.5-5.1); Alkaline Phosphatase 47 U/L (38-126); Anion Gap 7 mmol/L (8-16); Aspartate Amino Transferase 28 U/L (14-36); Bilirubin,Total 0.4 mg/dL (0.2-1.3); Blood Urea Nitrogen 15 mg/dL (7-17); Carbon Dioxide 23 mmol/L (22-30); Chloride 106 mmol/L (98-107); Estimated CRCL calculation 133 ml/min; Estimated Glomerular Filt Rate > 60; Glucose 91 mg/dL (65-110); Potassium 4.1 mmol/L (3.4-5.0); Sodium 136 mmol/L (137-145)
[2023-04-08 21:00] VITALS: BP 110/72; PULSE 70; RESP 16; O2SAT 97
[2023-04-08] MEDS: MORPHINE SULFATE (*CRX) 4 MG/ML INJ IV PUSH (22:13)
[2023-04-08] MEDS: SODIUM CHLORIDE 0.9% IV 1,000 ML 999 ML IV CONT (22:13)
[2023-04-08 23:05] VITALS: BP 104/64; PULSE 67; RESP 16; O2SAT 96
[2023-04-09] MEDS: FLUCONAZOLE 100 MG TABLET PO (00:13)
== END 2023-04-09 00:06 | disposition home or self-care (01) ==
PROVIDERS: Emergency Provider Emergency Medicine; PCP Family Medicine
DX: N30.01 Acute cystitis with hematuria (principal); M54.50 Low back pain, unspecified; J45.909 Unspecified asthma, uncomplicated; D64.9 Anemia, unspecified; K58.9 Irritable bowel syndrome, unspecified; F17.210 Nicotine dependence, cigarettes, uncomplicated; Z87.442 Personal history of urinary calculi; Z87.440 Personal history of urinary (tract) infections; Z98.51 Tubal ligation status
CPT/HCPCS: 36415; 74177; 80053; 81001; 85025; 87077; 87086; 87186; 96361; 96365; 96375; 99284; A9270; J0696; J1885; J2270; J2405; J7030; Q9967

== ENCOUNTER 2023-06-01 12:25 | Emergency (ER) | payer OTHER, SELFPAY ==
--- NOTE | 2023-06-01 12:27 | ED.DENTAL ---
HPI - Dental/Oral General Chief complaint: Dental/Oral Stated complaint: tooth/jaw pain Time Seen by Provider: 06/01/23 12:26 Source: patient Mode of arrival: ambulatory Limitations: no limitations History of Present Illness HPI Narrative: Isabel is a 32-year-old female patient presenting to clinic today with complaints of left lower dental pain times 2-3 weeks. She reports she feels as though she has a nerve exposed to the left lower posterior molars. States that she needs both these molars pulled. Has been going to her dentist's office frequently to try to get and to a cancellation spot. Patient was seen by her dentist and prescribed clindamycin and amoxicillin for a dental infection states she is now on her 2nd round of amoxicillin. Is having excruciating pain. Rates her pain 10/10 currently. States her dentist office cannot get her in for another couple weeks. Related Data Home Medications Medication Instructions Recorded Confirmed albuterol 90 mcg/actuation aerosol mcg inhalation 02/08/22 inhaler Allergies Allergy/AdvReac Type Severity Reaction Status Date / Time ciprofloxacin Allergy Intermediate eye Verified 06/01/23 12:37 swelling divalproex sodium Allergy Intermediate hives Verified 06/01/23 12:37 Review of Systems Review of Systems: Pertinent positives per HPI. Patient denies any fever, chills, rash, headache, visual changes, dizziness, cough, runny nose, sore throat, shortness of breath, chest pain, palpitations, nausea, vomiting, diarrhea, constipation, abdominal pain, or any urinary issues. [facility] Past Medical History Medical History (Updated 06/01/23 @ 12:54 by Fredo Randolph APRN) Anemia Angina at rest Anxiety Asthma Bipolar 1 disorder Depression Heart murmur IBS (irritable bowel syndrome) Kidney stones Migraines Ulcer UTI (urinary tract infection) Surgical History Surgical History Deficient knowledge of caesarean delivery x2 History of tubal ligation Hx of tonsillectomy Social History Social History Smoking packs per day: 0.25 Smoking cigarettes per day: 5.0 Years smoked: 13 Smoking pack-years: 3.25 Smoking status: Current every day smoker Tobacco type: cigarettes Additional smoking assessment comments: Pt has been smoking since the age of 15. Gender identity (if verbalized by the patient): Female Comments At the time of my signature, I reviewed and agree with the nursing past medical, surgical, social, and family history. There is no relevant family history pertinent to the patient complaint. Exam Narrative: General: Well-developed, well nourished, in no apparent distress Head: Normocephalic, atraumatic Eyes: Pupils equally round and reactive to light bilaterally, EOM intact, sclera and conjunctive clear, no discharge, lids normal Ears: TMs intact and clear, ear canals clear, no drainage, grossly hearing normal. Nose: Nares patent, no discharge, no inflammation, no sinus tenderness. Mouth: Oropharynx without lesions or masses, poor dentition, MMM. Cavity with dental decay to the left posterior molar Neck: Supple, trachea midline, no enlargement of anterior or posterior cervical nodes, no thyroid masses or goiter palpable. Cardio: Regular rate and rhythm, s1 and s2 normal, no murmur appreciated. Resp: Clear to auscultation bilaterally anteriorly and posteriorly, no rhonchi, rales, wheezing or rubs Course Course Emergency Course: Portions of this record may have been created with voice recognition software. Level of Care: Express Care Visit Vital Signs Vital signs: Vital signs reviewed MDM - Dental/Oral MDM Narrative Medical decision making narrative: At the time of visit patient is resting comfortably on the exam table. Offered to complete a left posterior inferior alveolar block and patient agrees. 8 m
[2023-06-01 12:37] VITALS: BP 122/74; PULSE 85; RESP 16; TEMP 36.7; O2SAT 100
[2023-06-01 12:38] VITALS: BP 122/74; PULSE 85; RESP 16; TEMP 36.7; O2SAT 100
== END 2023-06-01 13:00 | disposition home or self-care (01) ==
LOC: EXPCOLL 12:30
PROVIDERS: Emergency Provider Nurse Practitioner Family; PCP Family Medicine
DX: K08.89 Other specified disorders of teeth and supporting structures (principal); J45.909 Unspecified asthma, uncomplicated; I20.9 Angina pectoris, unspecified; R01.1 Cardiac murmur, unspecified
CPT/HCPCS: 64999; 99213; G0463

== ENCOUNTER 2023-06-24 19:22 | Emergency (ER) | payer OTHER, SELFPAY ==
[2023-06-24 19:33] VITALS: BP 127/78; PULSE 96; RESP 16; TEMP 37; O2SAT 99
[2023-06-24 19:34] VITALS: BP 127/78; PULSE 96; RESP 16; TEMP 37; O2SAT 99
--- NOTE | 2023-06-24 19:51 | ED.DENTAL ---
HPI - Dental/Oral General Chief complaint: Dental/Oral Stated complaint: Dental Wound Source: patient Mode of arrival: ambulatory History of Present Illness HPI Narrative: 32-year-old female presented for dental pain following a tooth extraction today. she states she was scheduled for a crown to be placed today, however she was told that the injury to the tooth would not allow for the crown to be placed, therefore the tooth was subsequently extracted. Endorses the site continues to bleed and she is concerned the site will heal with a large gap above the tooth. She states the dentist did not provide instructions or medications. MD Complaint: tooth pain Related Data Home Medications Medication Instructions Recorded Confirmed albuterol 90 mcg/actuation aerosol 90 mcg inhalation DIRECTED 02/08/22 06/24/23 inhaler quetiapine 200 mg tablet 200 mg DIRECTED 06/24/23 06/24/23 trazodone 50 mg tablet 50 mg DIRECTED 06/24/23 06/24/23 Allergies Allergy/AdvReac Type Severity Reaction Status Date / Time ciprofloxacin Allergy Intermediate eye Verified 06/01/23 12:37 swelling divalproex sodium Allergy Intermediate hives Verified 06/01/23 12:37 Review of Systems Review of Systems: CONSTITUTIONAL: Denies body aches, fever, chills ENT: Denies rhinorrhea, congestion, sore throat, or otalgia. Reports dental pain CARDIOVASCULAR: Denies chest pain, palpitations RESPIRATORY: Denies cough or dyspnea. SKIN: Denies rash, itching, or wounds. MUSCULOSKELETAL: Denies myalgia. NEUROLOGIC: Denies headache, numbness, tingling, or weakness. [facility] Past Medical History Medical History Anemia Angina at rest Anxiety Asthma Bipolar 1 disorder Depression Heart murmur IBS (irritable bowel syndrome) Kidney stones Migraines Ulcer UTI (urinary tract infection) Surgical History Surgical History Deficient knowledge of caesarean delivery x2 History of tubal ligation Hx of tonsillectomy Social History Social History Smoking packs per day: 0.25 Smoking cigarettes per day: 5.0 Years smoked: 13 Smoking pack-years: 3.25 Smoking status: Current every day smoker Tobacco type: cigarettes Additional smoking assessment comments: Pt has been smoking since the age of 15. Gender identity (if verbalized by the patient): Female Comments At time of signature, I have reviewed and agree with nursing past medical, surgical, social and family history unless otherwise noted. Please see nursing chart for further information. There is no relevant family history pertinent to the presenting complaint Exam Narrative: GENERAL: Appears in mild pain; no acute distress. HEAD: Normocephalic, atraumatic. EYES: EOMI. No redness or drainage. Conjunctivae normal. ENT: Dental pain location of #8, tooth appears to have been recently extracted, open hole extending anteriorly above tooth location, scant active bleeding. Mucous membranes pink and moist. TMs normal bilaterally. Throat normal. Uvula midline. NECK: Normal AROM. No lymphadenopathy. CHEST: No respiratory distress. Clear to auscultation. HEART: Regular rate and rhythm. No murmur appreciated. SKIN: Warm, dry, no rash. Normal skin turgor. NEURO: No focal deficits. Alert and oriented x3. Gait steady. HENMT: Teeth image: 1. open area extending to anterior gum Course Course Emergency Course: Patient is aware of diagnosis, understands and agrees to treatment plan. Anticipatory guidance given. Patient agrees to follow-up as directed and is aware of reasons to seek care at the emergency department. Portions of this record may have been created with voice recognition software Level of Care: Express Care Visit Vital Signs Vital signs: Vital Signs Temperature 98.6 F 06/24/23 19:33 Pulse Rate
== END 2023-06-24 20:00 | disposition home or self-care (01) ==
PROVIDERS: Emergency Provider Nurse Practitioner Family
DX: K08.89 Other specified disorders of teeth and supporting structures (principal); K08.409 Partial loss of teeth, unspecified cause, unspecified class; F17.210 Nicotine dependence, cigarettes, uncomplicated; Z79.899 Other long term (current) drug therapy
CPT/HCPCS: 99213; G0463

== ENCOUNTER 2023-08-11 08:56 | Emergency (ER) | payer OTHER, SELFPAY ==
[2023-08-11 09:01] VITALS: BP 104/82; PULSE 101; RESP 16; TEMP 37.1; O2SAT 98
--- NOTE | 2023-08-11 09:34 | ED.GENADULT ---
HPI - General Adult General Chief complaint: Upper Respiratory Infection Stated complaint: FEVER,CHILLS,BODY ACHES Time Seen by Provider: 08/11/23 08:59 Source: patient Mode of arrival: ambulatory Limitations: no limitations History of Present Illness HPI narrative: This is a 33-year-old female with PMH of IBS, bipolar 1, migraines, anxiety who presents to the ED with chief complaint URI symptoms for 1 week. Reports body aches, headache, cough, congestion and subjective fever. Denies neck pain or stiffness. Denies of chest pain, shortness of breath or productive cough. Related Data Home Medications Medication Instructions Recorded Confirmed albuterol 90 mcg/actuation aerosol 90 mcg inhalation DIRECTED 02/08/22 06/24/23 inhaler quetiapine 200 mg tablet 200 mg DIRECTED 06/24/23 06/24/23 trazodone 50 mg tablet 50 mg DIRECTED 06/24/23 06/24/23 Allergies Allergy/AdvReac Type Severity Reaction Status Date / Time ciprofloxacin Allergy Intermediate eye Verified 06/01/23 12:37 swelling divalproex sodium Allergy Intermediate hives Verified 06/01/23 12:37 Review of Systems Review of Systems: All systems as dictated in HPI [facility] Past Medical History Medical History (Updated 08/11/23 @ 10:00 by Ronnie Bernal PA-C) Anemia Angina at rest Anxiety Asthma Bipolar 1 disorder Depression Heart murmur IBS (irritable bowel syndrome) Kidney stones Migraines Ulcer UTI (urinary tract infection) Surgical History Surgical History Deficient knowledge of caesarean delivery x2 History of tubal ligation Hx of tonsillectomy Social History Social History Smoking packs per day: 0.25 Smoking cigarettes per day: 5.0 Years smoked: 13 Smoking pack-years: 3.25 Smoking status: Current every day smoker Tobacco type: cigarettes Additional smoking assessment comments: Pt has been smoking since the age of 15. Gender identity (if verbalized by the patient): Female Exam Narrative: GENERAL: Well-appearing, well-nourished, and in no acute distress. HEAD: Normocephalic, atraumatic. EYES: PERRLA and EOMI. ENT: Nares clear, no rhinorrhea or epistaxis. Mucous membranes moist. Oropharynx without tonsillar hypertrophy exudate or other lesions. NECK: Supple. No adenopathy or masses. CHEST: No respiratory distress. Clear to auscultation. No wheezes rales or rhonchi HEART: Regular rate and rhythm. No murmur heard. Normal peripheral pulses. ABDOMEN: Soft, nontender, nondistended, normal active bowel sounds. MSK: Normal range of motion. No edema. SKIN: Warm, dry, no rash. NEURO: Alert and oriented x3. No focal deficits. PSYCH: Normal mood and affect. Course Vital Signs Vital signs: Vital Signs Temperature 98.7 F 08/11/23 09:01 Pulse Rate 101 H 08/11/23 09:01 Respiratory Rate 16 08/11/23 09:01 Blood Pressure 104/82 08/11/23 09:01 Pulse Oximetry 98 08/11/23 09:01 Oxygen Delivery Room Air 08/11/23 09:01 Temperature 98.7 F 08/11/23 09:01 Pulse Rate 78 08/11/23 11:19 Respiratory Rate 20 08/11/23 11:19 Blood Pressure 100/57 L 08/11/23 11:19 Pulse Oximetry 99 08/11/23 11:19 Oxygen Delivery Room Air 08/11/23 09:01 Medical Decision Making MDM Narrative Medical decision making narrative: This is a 33-year-old female who presents to the ED with chief complaint of URI symptoms. Vitals are normal. Exam is benign. Viral swabs are positive for flu A. Symptoms consistent with viral syndrome. She is nauseous and did not have much relief with ODT Zofran. A line was started and we gave her some fluids and IV Reglan. She had significant improvement with this and feels ready to go home. Prescription for Reglan given for home. Pt will be discharged in stable condition. Return precautions given and supportive measures discussed. Pt is unders
[2023-08-11 09:48] LABS: Influenza A QL RT-PCR Positive (Negative); Influenza B QL RT-PCR Negative (Negative); RSV RNA, RT-PCR Negative (Negative); SARS-CoV-2 RNA PCR Negative (Negative)
[2023-08-11] MEDS: ONDANSETRON HCL ODT 4 MG TABLET PO (09:48)
[2023-08-11] MEDS: SODIUM CHLORIDE 0.9% IV 1,000 ML 999 ML IV CONT (10:31)
[2023-08-11] MEDS: METOCLOPRAMIDE HCL INJ 10 MG/2 ML VIAL IV PUSH (10:31)
[2023-08-11 11:19] VITALS: BP 100/57; PULSE 78; RESP 20; O2SAT 99
== END 2023-08-11 11:19 | disposition home or self-care (01) ==
PROVIDERS: Emergency Medicine; Emergency Provider Physician Assistant
DX: J10.1 Influenza due to other identified influenza virus with other respiratory manifestations (principal); Z20.822 Contact with and (suspected) exposure to COVID-19; J45.909 Unspecified asthma, uncomplicated; K58.9 Irritable bowel syndrome, unspecified; F41.9 Anxiety disorder, unspecified; F17.210 Nicotine dependence, cigarettes, uncomplicated; Z86.2 Personal history of diseases of the blood and blood-forming organs and certain disorders involving the immune mechanism; Z87.442 Personal history of urinary calculi; Z87.440 Personal history of urinary (tract) infections
CPT/HCPCS: 87637; 96361; 96374; 99284; A9270; J2765; J7030

== ENCOUNTER 2024-06-09 09:25 | Emergency (ER) | payer OTHER, SELFPAY ==
--- NOTE | ~2024-06-09 | XR_ITS ---
EXAMINATION: XR chest 2V DATE: 06/09/2024 10:30 INDICATION: Chest pain. Shortness of breath. TECHNIQUE: Frontal and lateral views of the chest were obtained. COMPARISON: Chest single view 05/26/20 FINDINGS: There is no pneumonia, pleural effusion, or pneumothorax. The heart size is normal. IMPRESSION: 1. No acute cardiopulmonary disease. Reviewed, dictated and finalized at location A. ACE GRINDER TENDER
--- NOTE | ~2024-06-09 | XR_ITS ---
EXAMINATION: XR wrist RT min 3V DATE: 06/09/2024 10:30 INDICATION: Right wrist injury. TECHNIQUE: 4 views of right wrist were obtained. COMPARISON: None. FINDINGS: Bone alignment is normal. No fracture. Joint spaces are normal. IMPRESSION: 1. Normal right wrist. Reviewed, dictated and finalized at location A. PROFESSOR IMPRESSION: 1. Normal right wrist.
--- NOTE | ~2024-06-09 | XR_ITS ---
EXAMINATION: XR finger 3rd LT min 2V DATE: 06/09/2024 10:30 INDICATION: Left hand third digit injury. TECHNIQUE: 3 views of left hand third digit were obtained. COMPARISON: None. FINDINGS: Alignment is normal. No fracture. Joint spaces are normal. IMPRESSION: 1. No fracture. Reviewed, dictated and finalized at location A. BAKE MOLDER IMPRESSION: 1. No fracture.
[2024-06-09 09:29] VITALS: BP 117/84; PULSE 90; RESP 20; TEMP 36.7; O2SAT 100
[2024-06-09 09:33] VITALS: O2SAT 100
--- NOTE | 2024-06-09 09:46 | ECG_ITS ---
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
[2024-06-09 10:56] LABS: Basophils Percent Auto 0.1 % (0.2-1.2); Eosinophils Absolute Auto 0.1 K/mm3 (0-0.3); Eosinophils Percent Auto 0.9 % (0-4.4); Hematocrit 41.8 % (37.0-47.0); Hemoglobin 14.9 g/dL (12.0-15.0); Immature Granulocyte Absolute 0.03 K/mm3 (0.00-0.031); Immature Granulocyte Percent A 0.4 % (0-0.5); Lymphocytes Absolute Auto 1.71 K/mm3 (0.9-3.2); Lymphocytes Percent Auto 22.4 % (18.3-44.2); Mean Corpuscular HGB Conc 35.6 g/dl (32-36); Mean Corpuscular Hemoglobin 33.6 pg (26-34); Mean Corpuscular Volume 94.1 fl (80-100); Mean Platelet Volume 9.1 fl (7.4-10.4); Monocytes Absolute Auto 0.4 K/mm3 (0.1-0.6); Monocytes Percent Auto 5.4 % (2.6-8.5); Neutrophils Absolute Auto 5.4 K/mm3 (1.3-6.7); Neutrophils Percent Auto 70.8 % (45.5-73.1); Platelet Count Result 276 k/mm3 (150-375); Red Blood Count 4.44 M/mm3 (4.2-5.4); Red Cell Distribution Width 12.2 % (11.5-14.5); White Blood Count 7.6 K/mm3 (4.5-10.0)
[2024-06-09 11:08] LABS: Alanine Aminotransferase 18 U/L (6-35); Albumin Level 4.5 g/dL (3.5-5.1); Alkaline Phosphatase 58 U/L (38-126); Anion Gap 3 mmol/L (4-12); Aspartate Amino Transferase 21 U/L (14-36); Bilirubin,Total 0.5 mg/dL (0.2-1.3); Blood Urea Nitrogen 13 mg/dL (7-17); Calcium 8.9 mg/dL (8.4-10.2); Carbon Dioxide 30 mmol/L (22-30); Chloride 105 mmol/L (98-107); Estimated CRCL calculation 106 ml/min; Estimated Glomerular Filt Rate > 60; Glucose 92 mg/dL (65-110); Potassium 4.4 mmol/L (3.4-5.0); Sodium 138 mmol/L (137-145)
[2024-06-09 11:22] LABS: Prothrombin Time 13.3 Seconds (11.1-14.7)
[2024-06-09 11:23] LABS: Partial Thromboplastin Time 28.6 Seconds (22.3-36.8)
[2024-06-09 11:26] LABS: D Dimer < 0.27 ug/mL (<0.48)
[2024-06-09 11:27] LABS: Troponin I < 0.012 ng/mL (0.000-0.034)
[2024-06-09 11:41] LABS: BEDSIDEPREGUCG Negative (Negative)
[2024-06-09 11:44] VITALS: BP 101/63; PULSE 82; RESP 13; O2SAT 100
== END 2024-06-09 12:48 | disposition home or self-care (01) ==
PROVIDERS: Emergency Provider Physician Assistant
DX: J06.9 Acute upper respiratory infection, unspecified (principal); S66.911A Strain of unspecified muscle, fascia and tendon at wrist and hand level, right hand, initial encounter; S66.113A Strain of flexor muscle, fascia and tendon of left middle finger at wrist and hand level, initial encounter; J45.909 Unspecified asthma, uncomplicated; K58.9 Irritable bowel syndrome, unspecified; F41.9 Anxiety disorder, unspecified; F31.9 Bipolar disorder, unspecified; F17.210 Nicotine dependence, cigarettes, uncomplicated; Z87.442 Personal history of urinary calculi; Z86.2 Personal history of diseases of the blood and blood-forming organs and certain disorders involving the immune mechanism; Z87.440 Personal history of urinary (tract) infections; R94.31 Abnormal electrocardiogram [ECG] [EKG]; Y09 Assault by unspecified means
CPT/HCPCS: 36415; 71046; 73110; 73140; 80053; 81025; 84484; 85025; 85380; 85610; 85730; 93005; 99284

== ENCOUNTER 2024-12-03 01:07 | Emergency (ER) | payer OTHER, MEDICAID, SELFPAY ==
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
--- NOTE | ~2024-12-03 | CT_ITS ---
Non-contrast Head CT History: Pain Technique: Axial non-contrast imaging of the brain was performed. Dose reduction technique was used on this scan by utilizing automated exposure control and iterative reconstruction technique. The dose -length product (DLP) was 605.33 mGy-cm. Findings: There is no evidence of intracranial hemorrhage, mass lesion, or acute infarct. Brain par enchyma appears normal. The ventricles and subarachnoid spaces are normal in size. The calvarium ap pears normal. The visualized paranasal sinuses and mastoid air cells are clear. Impression: No significant abnormality seen. Reviewed, dictated and finalized at location . Impression: No significant abnormality seen.
--- OUTSIDE RECORDS SUMMARY | 2024-12-03 01:09 | XMS_ITS | Clinical Summary ---
Author Organization [facility] Address [address] [place] [address] Care Team Providers Care Marketing Operations Associate Name Role Phone Adriana Ordoñez CDL PROGRAM COORDINATOR-MEDICAL OBSERVER Primary Care Provider Source Comments [facility],non-owned Affiliates and Associated Physician Practices is amultiple site organization consisting of ambulatory clinics and hospital sitesin [place], [place], [place] and [place]. This disclosure is being madepursuant to the Care Everywhere program and may not contain all information available regarding this patient. Last updated 18.[facility] [place] Allergies Active Allergy Reactions Criticality Noted Date Comments Ciprofloxacin Swelling 03/29/2014 Valproic Acid Rash Low 03/29/2014 Ferrous Sulfate Rash Low 09/16/2014 Medications * Be aware that medications may not be up to date on this document. Alwaysverify current medications with the patient. Vit-Fe Fumarate-FA ( VITAMIN) 28-0.8 MG tablet Take 1 Tab by mouth once daily. Active docusate sodium (COLACE) 100 MG capsule Take 1 Cap by mouth 2 times daily as needed for Constipation. 60 Cap 1 5 Active acetaminophen (TYLENOL) 325 MG tablet Take 650 mg by mouth every 4 hours as needed for Pain. Maximum allowable Acetaminophen amount = 4 Grams (4000 mg) / 24 hours. Active oxyCODONE-acet aminophen (PERCOCET) 5-325 MG tablet Take 1-2 Tabs by mouth every 4 hours as needed. 40 Tab 0 5 Active docusate sodium (COLACE) 100 MG capsule Take 1 Cap by mouth 2 times daily. 40 Cap 2 5 Active ibuprofen (MOTRIN) 600 MG tabletIndicati ons:Mild to Moderate Pain Take 1 Tab by mouth every 6 hours as needed for Pain. Indications: Mild to Moderate Pain 60 Tab 2 5 Active ferrous sulfate 325 (65 FE) MG tablet Take 1 Tab by mouth daily with breakfast. 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 PLEASE OBTAIN 5-10 mL CORD BLOOD IN GREEN TOP (SODIUM HEPARIN) TUBES. CONTACT GENETIC COUNSELORS AT EXT. 5654 OR 9987 ONCE SAMPLE HAS BEEN COLLECTED. SAMPLES CAN BE REFRIGERATED UNTIL NEXT BUSINESS DAY. PLEASE INFORM GENETICS WHERE THE SAMPLE IS BEING HELD. 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 Uncertain whether she required any surgery. Does follow with cardiology every 6 mo. Records requested from [facility]. Multiple soft markers for Down syndrome on ultra sound 05/09/2014 Overview (05/09/2014): Nuchal fold 5.88 mm EIF Mild renal pelvis dilitation Short HL, FL H/O section 03/30/2014 Overview (07/04/2014): 38w primary elective CS at [facility] 2007 for suspected macrosomia, baby weighed 8lb 5oz; patient denies h/o GDM Operative report PLTCS per fax [facility] 06/29/14. Pyelonephritis 03/30/2014 Overview (06/01/2014): H/o pyelonephritis and recurrent UTIs Started on Macrobid suppression 06/01 Asthma 03/30/2014 Overview (06/01/2014): Albuterol PRN IBS (irritable bowel syndrome) 03/30/2014 Overview (03/30/2014): S/p colonoscopy Bipolar disorder 03/30/2014 Overview (06/01/2014): Allergic to depakote No medications currently Supervision of other high-risk 014 Overview (05/14/2015): HUE from Dr. Warner, desires PNL: O+/I/-/- Ab: neg GCT: 95 HIV: NR GBS: uria Dating: L = 12 wk UDS: neg Genetics: mosaic T21 Pap: NILM 01/2014 fax from [facility] Gc/Chl: neg/neg fax from [facility] UCx: GBS Breast/Bottle: Family Planning: History of pre-eclampsia in prior , currently 03/29/2014 GBS (group B streptococcus) UTI complicating pre gnancy 03/29/2014 Overview (03/29/2014): tx with amox at Dr. Warner. Needs repeat culture. Resolved Problems Problem Noted Date Diagnosed Date Resolved Date abnormality in pregnan cy- Mosiac Down syndrome 07/20/2014 09/26/2014 Overview (09/21/2014): Images from the original note were not included. [facility] PATIENT--PLEASE CALL [phone] IF TRIAGED OR ADMITTED Care Provider: Dr. Karu[facility] Care [place] consultants involved: Nurse coordinator- Xiao; cardiology- Dr. Walker; Neonatology- Dr. 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 She understands her child my have a spectrum of presentation for Down syndrome: normal to profound mental retardation. She has previously been counseled by genetic counselor and Dr. Kaur. A normal echocardiogram is reassuring. care needed at : Dr. Pena's note: We don't anticipate specific requirements for this baby. Planned care after delivery: Routine care is indicated for Shahla. Manager Floor: Dr. Marialuisa Minor- [facility] Planned surveillance: Released from [facility]; care to continue with Dr. Kaur. Planned delivery location: [facility] Planned GA at delivery: 39weeks 1day on day of c/s Planned mode of delivery: Repeat C- section scheduled 09/23/[address] [facility] Placenta Instructions: None Autopsy indicated: Genetics note: 05/19/2014 Multiple minor markers second trimester ultrasound Amniocentesis 47,XX, +21 (2) / 46,XX (9) RECOMMEND CORD BLOOD BE COLLECTED AT DELIVERY FOR ADDITIONAL CYTOGENETIC STUDIES. PLEASE OBTAIN 5-10 mL CORD BLOOD IN GREEN TOP (SODIUM HEPARIN) TUBES. CONTACT GENETIC COUNSELORS AT EXT. 9035 OR 5243 ONCE SAMPLE HAS BEEN COLLECTED. SAMPLES CAN BE REFRIGERATED UNTIL NEXT BUSINESS DAY. PLEASE INFORM GENETICS WHERE THE SAMPLE IS BEING HELD. Tar Worker Concerns:(07/21/14) Patient with significant mental health history: Social anxiety, Bipolar(usually on medications but not during )- diagnosis has been a stressor and she plans to start medications shortly after delivery as she does not plan to breastfeed, significant post depression- lasted for months. She states today that she may be starting an antidepressant soon. This care plan is based on evaluation and is subject to change based on assessment. Please see Images or Cardiac under Chart Review for US/ ECHO/ MRI reports. Anemia 03/30/2014 05/04/2014 Overview (03/30/2014): Transfusion after CS in G1 Immunizations Immunization Administration Dates Next Due PNEUMOCOCCAL PPSV23 09/24/2014 TDAP (7yrs+) 08/08/2014 Family History Medical History Relation Name Comments Seizures Brother Hypertension Father Asthma Mother Relation Name Status Comments Brother Father Alive Maternal Grandfather Maternal Grandmother Mother Alive Paternal Grandfather Paternal Grandmother Social History Tobacco Use Types Packs/Day Years Used Date Smoking Tobacco: Every Day Cigarettes 0.3 10 Smokeless Tobacco: Never Tobacco Cessation:Ready to Q uit: No; Counseling Given: Yes Alcohol Use Standard Drinks/Week Comments No 0 (1 standard drink = 0.6 oz pur e alcohol) Comments No Sex and Gender Information Value Date Recorded Sex Assigned at Not on file Legal Sex 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 Gender Identity Not on file Sexual Orientation Not on file Last Filed Vital Signs Vital Sign Reading Time Taken Comments Blood Pressure 114/73 09/29/2014 9:15 AM CDT Pulse 73 09/29/2014 9:15 AM CDT Temperature 36.4 C (97.6 F) 09/25/2014 8:10 AM CDT Respiratory Rate 20 09/29/2014 9:15 AM CDT Oxygen Saturation 97% 09/24/2014 6:05 AM CDT Inhaled Oxygen Concentration - - Weight 75.8 kg (167 lb) 09/29/2014 9:15 AM CDT Height 162.6 cm (5' 4) 09/29/2014 9:15 AM CDT Body Mass Index 28.67 09/29/2014 9:15 AM CDT Plan of Treatment Health Maintenance Due Date Last Done Comments MEDICARE AWV 12 MONTHS 1990 PAP SMEAR 1990 HIV SCREENING 2005 HEPATITIS C SCREENING 07/03/2008 HEPATITIS B VACCINE (1 of 3 - 19+ 3-dose series) 2009 PNEUMOCOCCAL VACCINE (2 of 2 - PCV) 09/25/2015 09/24/2014 COVID-19 VACCINE (1 - 2023-2 5 season) 2024 DTAP/TDAP/TD VACCINES (2 - T d or Tdap) 08/08/2024 08/08/2014 INFLUENZA VACCINE (Season Ended) 2025 ZOSTER VACCINE (1 of 2) 2040 HIB VACCINE Aged Out No longer eligi ble based on patient's age to complete this topic HPV VACCINE Aged Out No longer eligi ble based on patient's age to complete this topic MENINGOCOCCAL (Group B) VACC INE SHARED DECISION-MAKING Aged Out No longer eligibl e based on patient's age to complete this topic MENINGOCOCCAL GROUPS A/C/Y/W VACCINE Aged Out No longer eligible b ased on patient's age to complete this topic Insurance MEDICAID - [facility] MEDICARE [place]ID - [place] Subscriber Plan / Payer (Ef fective for All Dates) Name:Isabel Ann Relation to Subscriber:Self Name:Isabel Ann Payer ID:Not on file Group ID:Not on file Type:Medicaid [place] Address: [place] [id number] MEDICAID - [place] MEDICARE Advance Directives * Full Code (Latest Code Status on File) Date Activated Date Inactivated Comments 09/23/2014 12:41 PM 09/25/2014 1:21 PM Care Teams Marketing Operations Associate Relationship Specialty Start Date End Date Adriana Ordoñez, CHIO-ULICES [address] [place] [address] [place] [address] PCP - General Nurse Practitioner 08/29/14
--- OUTSIDE RECORDS SUMMARY | 2024-12-03 01:09 | XMS_ITS ---
Author Organization [facility] Address [address] [place] [address] Care Team Providers Care Ore Mixer Name Role Phone Leatha Hale Primary Care Provider Judy Liang Unavailable [phone] Rubio Mcmahon Unavailable [phone] REASON FOR VISIT Last seen 10/09/2023 Medications Medication SIG (Take, Route, Fr equency, Duration) Notes Start Date End Date Status SEROquel 200 MG 1 tablet at bedtime Orally Once a day for 7 days Active lamoTRIgine 100 MG 1 tablet once daily Orally for 7 days Active traZODone HCl 50 MG 1-2 tablets at bedti me as needed Orally Once a day for 7 days Act rudy Prazosin HCl 1 MG 1 capsule at bedtime Orally Once a day for 30 days Active Vistaril 50 MG 1 capsule as needed Orally three times a day as needed for 30 days Active Social History Sex Assigned At : Social History Observation Description Sex Assigned At Female Encounters Encounter Location Date Provider Diagnosis [address] [address] 05/12/2024 Rubio Mcmahon Plan Of Treatment No Information Progress Notes * Isabel ZEE MDOB:[birth year] (34 yo F)Acc No.[id number]:05/12/2024 UNLOCKED PROGRESS NOTE Patient: Tja ROMAN Isabel Vang Provider: Thomas Mcmahon DNP, PMHNP-BC :1990 A ge:33 Y S ex:Female Date:05/12/2024 Phone: Address:[address] [place], [place] [id number] Pcp:Leatah Hale Subjective: * Chief Complaints: * 1 . Last seen 10/09/2023. * Medical History: * Medications: T aking Vistaril 50 MG Capsule 1 capsule as needed Orally three times a day as needed , Taking Prazosin HCl 1 MG Capsule 1 capsule at bedtime Orally Once a day , Taking traZODone HCl 50 MG Tablet 1-2 tablets at bedtime as needed Orally Once a day , Taking lamoTRIgine 100 MG Tablet 1 tablet once daily Orally , Taking SEROquel 200 MG Tablet 1 tablet at bedtime Orally Once a day Objective: * Vitals: Assessment: Plan: * Treatment: * Recommended Wellness and Pre vention Guidelines: * S tatus A lert L ast Done N ext Due A ction Taken N ONCOMPLIANT B viry Mass Index - 1 07/12/2023 - N ONCOMPLIANT C ervical cancer screening - 1 07/12/2023 - N ONCOMPLIANT D epression followup 0 10/09/2023 1 07/12/2023 - N ONCOMPLIANT H IV screening - 1 07/12/2023 - N ONCOMPLIANT I nfluenza vaccine (high risk) - 1 07/12/2023 - * * Electronic signature of Serafin Mcmahon , PLANT SAFETY LEADER, [id number] on 12/03/2024 at 01:09 AM CDT Sign off status: Pending * Provider: Thomas Mcmahon DNP, PMHNP- Date: 07/12/2023 Generated for William corley/Jamin/eTransmitting on: 0 12/03/2024 01:09 AM CDT
--- OUTSIDE RECORDS SUMMARY | 2024-12-03 01:09 | XMS_ITS ---
[facility] Organization [facility] Address [address] [place] [address] Care Team Providers Care Civil Engineering Drafter Name Role Phone Leatha Hale Primary Care Provider Judy Liang Unavailable [phone] Rubio Mcmahon [phone] REASON FOR VISIT Need updated #. Last seen 10/09/2023 Social History Sex Assigned At : Social History Observation Description Sex Assigned At Female Encounters Encounter Location Date Provider Diagnosis [address] [address] 08/03/2024 Rubio Mcmahon Plan Of Treatment No Information Progress Notes * Isabel ZEE MDOB:[birth year] (34 yo F)Acc No.[id number]:08/03/2024 UNLOCKED PROGRESS NOTE Patient: Isabel SUN Provider: Thomas Mcmahon DNP, PMHNP-BC :1990 A ge:34 Y S ex:Female Date:08/03/2024 Phone: Address:[address] [place] [address] Pcp:Leatha Hale Subjective: * Chief Complaints: * 1 . Need updated #. Last seen 10/09/2023. * Medical History: Objective: * Vitals: Assessment: Plan: * Treatment: * * Electronic signature of Serafin Mcmahon APRN, [id number] on 12/03/2024 at 01:09 AM CDT Sign off status: Pending * Provider: Thomas Mcmahon DNP, PMHNP-BC Date: 0 08/03/2024 Generated for Michaeli ng/Famanuelg/eTransmitting on: 0 12/03/2024 01:09 AM CDT
--- OUTSIDE RECORDS SUMMARY | 2024-12-03 01:09 | XMS_ITS | Patient Health Record ---
Author Organization [facility] Address [address] [place] [address] Care Team Providers Care Tar Roofer Name Role Phone Alexia, Cari Primary Care Provider Judy Liang Unavailable [phone] Rubio Mcmahon Unavailable [phone] Allergies Allergen (clinical drug ingredient) Drug/Non Drug Allergy documented on EMR Reaction Allergy Type Onset Date Status ciprofloxacin Cipro rash Drug Allergy Act rudy Reason For Referral No Information Medications Medication SIG (Take, Route, Fr equency, [...] needed for 30 days Active Social History Tobacco Use: Social History Observation Description Date Details (start date - stop date) Current Smoker NA - NA Sex Assigned At : Social History Observation Description Sex Assigned At Female Dont use, Tobacco Use/Smoking Question Answer Notes Are you a current smoker How often do you smoke cigarettes? every day How many cigarettes a day do you smoke? 6-10 Section Notes: No recent per PDMP PRESCRIPTION # FILLED WRITTEN DRUG LABEL QTY DAYS STRENGTH [facility]ME [facility] REFILL NO. REFILLS STATE 04/09/2023 04/08/2023 ACETAMINOPHEN 325 MG / HYDROcodone BITARTRATE 5 MG ORAL TABLET 20.0 5 5.0 MG/ PRESCRIPTION # FILLED WRITTEN DRUG LABEL QTY DAYS STRENGTH MME [facility] REFILL NO. REFILLS STATE 06/26/2023 06/26/2023 ACETAMINOPHEN 325 MG / oxyCODONE HYDROCHLORIDE 5 MG ORAL TABLET 12.0 4 5.0 MG/325.0 MG 22.50 Torsten [address] [place] [id number] [facility] # [id number], [place], [place] NA 0 [place] [id number] 06/01/2023 06/01/2023 traMADol HCL 12.0 3 50 MG 20 Tomasa Hebert [id number] [facility] # [id number], [place], [place] NA 0 [place] 1 [id number] 04/09/2023 04/08/2023 ACETAMINOPHEN 325 MG / HYDROcodone BITARTRATE 5 MG ORAL TABLET 20.0 5 5.0 M PRESCRIPTION # FILLED RICHARD N DRUG LABEL QTY DAYS STRENGTH MME [facility] REFILL NO. REFILLS STATE PATIENT [id number] 06/26/2023 06/26/2023 ACETAMINOPHEN 325 MG / oxyCODONE HYDROCHLORIDE 5 MG ORAL TABLET 12.0 4 5.0 MG/325.0 MG 22.50 [facility] [id number] [facility] # [id number], [place], [place] NA 0 [place] [id number] 06/01/2023 06/01/2023 traMADol HCL 12.0 3 50 MG 20 Tomasa Hebert [id number] [facility] # [id number], [place], [place] NA 0 [place] [id number] 04/09/2023 04/08/2023 ACETAMINOPHEN 325 MG / HYDROcodone BITARTRATE 5 MG ORAL TABLET 20.0 5 5.0 M Reviewed [place] PDMP No recent per PDMP Problems Problem Type SNOMED Code ICD Code Onset Dates Problem Status W/U Status Risk Notes Problem 32983623 Insomnia 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) Active confirmed Problem 32593757 Mental disorder, not otherwise specified (F99) 1 Active confirmed Problem Posttraumatic stress disorder (48197189) PTSD (post-traumatic stress disorder) (F43.10) Active confirmed Problem 77102264 Anxiety (F41.9) 1 Active confirmed Problem Bipolar 1 disorder (451602319) Bipolar 1 disorder (F31.9) 7 Active confirmed Problem 26499222 Social anxiety disorder (F40.10) 6 Active confirmed Problem Nightmares (604229450) Nightmares (F51.5) 4 Active confirmed Problem Grief (314167889) Grief (F43.20) Active confirm ed Problem Mild intermittent asthma (946463695) Mild intermittent asthma without complication (J45.20) Active confirmed Encounters Encounter Location Date Provider Diagnosis [address] [place] [address] 05/05/2024 Rubio Mcmahon Bipolar 1 disorder F31.[address] [place] [address] 07/29/2024 Rubio Mcmahon Assessments Encounter Date Diagnosis (ICD Code) Assessment Notes Treatment Notes Treatment Clinical Notes Section Notes 05/05/2024 Bipolar 1 disorder (ICD-10 - F31.9) Plan Of Treatment No Information Insurance Providers Payer Name Payer Address Payer Phone Subscriber Number Group Number Insured Name Patient Relationship to Insured Coverage Start Date Coverage End Date [employer] Better [employer] Medicare-[place] [address] [address] [place] [address] [id number] Isabel Ann Self - patient is the insured 1 2 [employer] MEDICARE ADV [address] [address] [place] [address] [id number] Isabel Ann Self - patient is the insured 2 MEDICA[place] [address] [place] [address] [id number] Isabel Ann Self - patient is the insured 6 1 [employer] Medicaid [address] [address] [place] [address] [id number] Isabel Ann Self - patient is the insured 2 MEDICARE PART A [address] [place] [address] [id number] Isabel Ann Self - patient is the insured 6 MEDICARE 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
--- OUTSIDE RECORDS SUMMARY | 2024-12-03 01:09 | XMS_ITS | Data Portability ---
Author Organization [facility] Address [address] [place] [address] Assessment No assessment recorded. Plan of Treatment Reminders Order Date Submit Date Provider Last Modified By Organization Details Last Modified Time Details Appointments None recorded. Lab CBC 2015 016 raffi [facility], [address], [address], [place], [address], 6 18:09:10 TSH, serum or plasma 2015 016 Open Network Entertainmentaditya [facility], [email or web address], [address], [place], [address], 6 18:09:11 vitamin D, 25-hydrox y, total, serum 2015 016 Adyuka [facility], [email or web address], [address], [place], [address], 6 18:09:12 urinalysi s, complete 2014 015 MORGAN [facility], [address], [address], [place], [address], 5 06:19:24 CBC 2014 015 MORGAN [facility], [address], [address], [place], [address], 5 06:19:23 lipid panel, serum 2014 015 [facility], [address], [address], [place], [address], 5 06:19:25 CMP, serum or plasma 2014 015 [facility], [address], [address], [place], [address], 5 06:19:23 test, urine 2014 015 [email or web address] In-Office Order, Internal Use Only DO Not Attach Compendium DO Not Attach Compendium, Do Not Delete/merge, [id number] 5 12:31:39 test, urine 2014 015 [email or web address] Order, Internal Use Only DO Not Attach Compendium DO Not Attach Compendium, Do Not Delete/merge, [id number] 5 14:31:01 urinalysi s, dipstick 2014 015 [email or web address] [place]-Office Order, Internal Use Only DO Not Attach Compendium DO Not Attach Compendium, Do Not Delete/merge, [id number] 5 14:31:01 pap, IG + HPV, cervical 2014 015 raymundo [facility], [address], [place], [address], 5 14:31:01 bacterial vaginosis + vaginitis panel, vaginal 2014 015 [facility], [address], [address], [place], [address], 5 14:25:42 HSV (1+2) DNA, qual, PCR, unspecifi ed specimen 2014 015 [facility], [address], [address], [place], [address], 5 14:25:43 culture, vaginal/r ectal, streptoco ccus group B 2014 015 [facility], [address], [address], [place], [address], 5 14:25:[address] referral - has been to [facility] 16 times in the last year for migraines 2014 015 [email or web address] Not available 5 10:31:58 counselin g referral - Pt instructe d to call for appt. 2014 015 helena Aguilera LCSW, [address] [place] [address], [address], 5 12:46:11 psychiatr ist referral - Pt instructe d to call and schedule an appt. 2014 015 [place], [address] [place] [address], [address], 5 15:33:30 Procedures None recorded. Surgeries None recorded. Imaging None recorded. Medication Orders calcium 600 mg (as carbonate )-vitamin D3 20 mcg (800 unit) tablet 2015 [facility]16 [id number], [address], [place], [id number], 6 17:48:49 Vitamin tablet 2015 016 ATHENAFAX [facility]90114, [address], [place], [id number], 6 18:12:50 Xulane 150 mcg-35 mcg/24 hr transderm al patch 2015 016 [facility] #22436, [address], [place], [id number], 6 17:48:49 sumatript an 50 mg tablet 2014 015 [facility] #30828, [address] [place] [address], [id number], 6 17:29:00 naproxen 500 mg tablet 2014 015 [facility]00201, [address] [place] [address], [id number], 6 17:29:01 Nexplanon 68 mg subdermal implant 2014 015 [email or web address] Not available 5 12:39:51 Depo-Prov era 150 mg/mL intramusc ular suspensio n 2014 015 Not available 5 10:59:54 Nexplanon 68 mg subdermal implant 2014 015 [email or web address] [facility] #87817, [address] [place] [address], [id number], 5 16:04:35 Patient TargetsNo targets recorded. Patient Instructions Encounter Date Encounter Id Patient Instructions Last Modified By Organization Details Last Modified Time 10/26/2014 [id number] Care at Home With Your Baby: Care Instructions Not available 10/31/2014 09:31:34 depression after childbirth: care instructions Not available 10/31/2014 09:31:33 stress in parent s of infants: care instructions Not available 10/31/2014 09:31:34 12/21/2014 [id number] depression after childbirth: care instructions [email or web address] Not available 12/30/2014 12:31:39 stress in parent s of infants: care instructions [email or web address] Not available 12/30/2014 12:31:39 implant for dontrell h control: care instructions Not available 12/30/2014 12:31:39 12/12/2015 [id number] implant for dontrell h control: care instructions [email or web address] Not available 12/13/2015 09:44:42 02/22/2016 [id number] Patient came in today requesting a referral to an OBGYN that will perform a tubal ligation. Patient states that Dr. Warner had told her in the past that she is too young for this. SHe has two children - ages 8 (son) and 18 months (daughter with Down Syndrome) and states that she does not want anymore. She currently has Nexplanon but has not stopped bleeding since its insertion and has tried other controls to stop the bleeding to no avail. We had a long discussion about the implications of a tubal ligation and that if she would want to have more children in the future - we discussed the options of Mirena and Paraguard as well. Advised patient to make an appointment with OBGYN to discuss her concerns raffi Not available 02/22/2016 13:31:25 Reason for Referral Neurologist Referral for Lex arellano has been to [facility] 16 times in the last year for migraines Referring Physician: Delmy Leyva, Family Medicine, Encounter Date: 05/23/2015 Counseling Referral for Anxi ety Pt instructed to call for appt. Referring Physician: Delmy Leyva [facility], Encounter Date: 05/23/2015 Psychiatrist Referral for An xiety Pt instructed to call and schedule an appt. Referring Physician: Delmy Leyva [facility], Encounter Date: 05/23/2015 Results Created Date Observation Date Name Description Value Unit Range Abnormal Flag Note LastModifiedBy Organization Detail LastModifiedTime 12/22/19 15 12/21/2014 pregn yanna test, urine HCG negati ve Not Available In-Office Order Internal Use Only DO Not Attach Compendium DO Not Attach Compendium, Do Not Delete/merge, [id number] 12/21/2014 11:00:09 10/27/19 15 10/26/2014 urina lysis , dipst ick Leukocytes Trace Not Available In-Offi ce Order Internal Use Only DO Not Attach Compendium DO Not Attach Compendium, Do Not Delete/merge, [id number] 10/26/2014 15:16:57 10/27/1910/26/2014 urina lysis , dipst ick Nitrite negati ve Not Available In-Office Order Internal Use Only DO Not Attach Compendium DO Not Attach Compendium, Do Not Delete/merge, 10/26/2014 15:16:57 10/27/1910/26/2014 urina lysis , dipst ick Urobilinogen 1 Not Available In-Of fice Order Internal Use Only DO Not Attach Compendium DO Not Attach Compendium, Do Not Delete/merge, 10/26/2014 15:16:57 10/27/1910/26/2014 urina lysis , dipst ick Protein Negati ve Not Available In-Office Order Internal Use Only DO Not Attach Compendium DO Not Attach Compendium, Do Not Delete/merge, 10/26/2014 15:16:57 10/27/1910/26/2014 urina lysis , dipst ick pH 7.0 Not Available In-Office Order Internal Use Only DO Not Attach Compendium DO Not Attach Compendium, Do Not Delete/merge, 10/26/2014 15:16:57 10/27/1910/26/2014 urina lysis , dipst ick Blood Small Not Available In-Office Order Internal Use Only DO Not Attach Compendium DO Not Attach Compendium, Do Not Delete/merge, 10/26/2014 15:16:57 10/27/1910/26/2014 urina lysis , dipst ick Specific [place] 1.025 Not Available In-Off ice Order Internal Use Only DO Not Attach Compendium DO Not Attach Compendium, Do Not Delete/merge, 10/26/2014 15:16:57 10/27/1910/26/2014 urina lysis , dipst ick Ketone Negati ve Not Available In-Office Order Internal Use Only DO Not Attach Compendium DO Not Attach Compendium, Do Not Delete/merge, 10/26/2014 15:16:57 10/27/1910/26/2014 urina lysis , dipst ick Bilirubin Negati ve Not Available In-Office Order Internal Use Only DO Not Attach Compendium DO Not Attach Compendium, Do Not Delete/merge, 10/26/2014 15:16:57 10/27/1910/26/2014 urina lysis , dipst ick Glucose Negati ve Not Available In-Office Order Internal Use Only DO Not Attach Compendium DO Not Attach Compendium, Do Not Delete/merge, 10/26/2014 15:16:57 10/27/19 15 10/26/2014 urina lysis , dipst ick Appearance Clear Not Available In-Offi ce Order Internal Use Only DO Not Attach Compendium DO Not Attach Compendium, Do Not Delete/merge, 10/26/2014 15:16:57 10/27/19 15 10/26/2014 urina lysis , dipst ick Color Dark Yellow Not Available In-Office Order Internal Use Only DO Not Attach Compendium DO Not Attach Compendium, Do Not Delete/merge, 10/26/2014 15:16:57 10/27/19 15 10/26/2014 pregn yanna test, urine HCG negati ve Not Available In-Office Order Internal Use Only DO Not Attach Compendium DO Not Attach Compendium, Do Not Delete/merge, 10/26/2014 15:16:57 10/21/1910/20/2014 urina lysis , dipst ick Leukocytes Trace Not Available In-Offi ce Order Internal Use Only DO Not Attach Compendium DO Not Attach Compendium, Do Not Delete/merge, 10/20/2014 18:01:52 10/21/1910/20/2014 urina lysis , dipst ick Nitrite negati ve Not Available In-Office Order Internal Use Only DO Not Attach Compendium DO Not Attach Compendium, Do Not Delete/merge, 10/20/2014 18:01:52 10/21/1910/20/2014 urina lysis , dipst ick Urobilinogen .2 Not Available In-Of fice Order Internal Use Only DO Not Attach Compendium DO Not Attach Compendium, Do Not Delete/merge, 10/20/2014 18:01:52 10/21/1910/20/2014 urina lysis , dipst ick Protein Trace Not Available In-Office Order Internal Use Only DO Not Attach Compendium DO Not Attach Compendium, Do Not Delete/merge, [id number] 10/20/2014 18:01:52 10/21/19 15 10/20/2014 urina lysis , dipst ick pH 6.5 Not Available In-Office Order Internal Use Only DO Not Attach Compendium DO Not Attach Compendium, Do Not Delete/merge, [id number] 10/20/2014 18:01:52 10/21/19 15 10/20/2014 urina lysis , dipst ick Blood Modera te Not Available In-Office Order Internal Use Only DO Not Attach Compendium DO Not Attach Compendium, Do Not Delete/merge, [id number] 10/20/2014 18:01:52 10/21/19 15 10/20/2014 urina lysis , dipst ick Specific [place] 1.020 Not Available In-Off ice Order Internal Use Only DO Not Attach Compendium DO Not Attach Compendium, Do Not Delete/merge, 10/20/2014 18:01:52 10/21/19 15 10/20/2014 urina lysis , dipst ick Ketone Negati ve Not Available In-Office Order Internal Use Only DO Not Attach Compendium DO Not Attach Compendium, Do Not Delete/merge, [id number] 10/20/2014 18:01:52 10/21/19 15 10/20/2014 urina lysis , dipst ick Bilirubin Negati ve Not Available In-Office Order Internal Use Only DO Not Attach Compendium DO Not Attach Compendium, Do Not Delete/merge, 10/20/2014 18:01:52 10/21/19 15 10/20/2014 urina lysis , dipst ick Glucose Negati ve Not Available In-Office Order Internal Use Only DO Not Attach Compendium DO Not Attach Compendium, Do Not Delete/merge, [id number] 10/20/2014 18:01:52 10/27/19 15 10/28/2014 bacte rial vagin osis + vagin itis panel , vagin al atopobium vaginae HIGH - 2 score abnormal Not Available [facility] ([facility]) [address], [place], [address], 10/31/2014 14:25:42 10/27/19 15 10/28/2014 bacte rial vagin osis + vagin itis panel , vagin al bvab 2 LOW - 0 score Not Available [facility] ([facility]) [address] [place], [address], 10/31/2014 14:25:42 10/27/19 15 10/28/2014 bacte rial vagin osis + vagin itis panel , vagin al megasphaera 1 LOW - 0 score CALCU LATE TOTAL SCORE BY JAZMINE Wallis THE 3 INDIV IDUAL BACTE RIAL VAGIN OSIS (BV) MARKE R SCORE S TOGET HER. TOTAL SCORE IS INTER PRETE D FOLLO WS: . TOTAL SCORE 0-1: INDIC ATES THE ABSEN CE OF BV. TOTAL SCORE 2: INDET ERMIN ATE FOR BV. ADDIT IONAL CLINI EARNEST DATA SHOUL D BE EVALU ATED TO ESTAB NIRMAL A DIAGN OSIS. TOTAL SCORE 3-6: INDIC ATES THE PRESE NCE OF BV. . THIS TEST WAS DEVEL OPED AND ITS PERFO RMANC E VILMA CTERI STICS DETER MINED BY [employer] [facility]. IT HAS NOT BEEN CLEAR ED OR APPRO DELIA BY THE FOOD AND DRUG ADMIN ISTRA TION. THE FDA HAS DETER MINED THAT SUCH CLEAR ANCE OR APPRO JAZMINE IS NOT NECES JOVANA. Not Available [facility] ([facility]) [address], [place], [address], 10/31/2014 14:25:42 10/27/19 15 10/28/2014 bacte rial vagin osis + vagin itis panel , vagin al renzo albicans, STEVE NEGATI VE negati ve Not Available [facility] ([facility]) [address] [place], [address], 10/31/2014 14:25:42 10/27/19 15 10/28/2014 bacte rial vagin osis + vagin itis panel , vagin al renzo glabrata, STEVE NEGATI VE negati ve THIS TEST WAS DEVEL OPED AND ITS PERFO RMANC E VILMA CTERI STICS DETER MINED BY [facility]. IT HAS NOT BEEN CLEAR ED OR APPRO DELIA BY THE FOOD AND DRUG ADMIN ISTRA TION. THE FDA HAS DETER MINED THAT SUCH CLEAR ANCE OR APPRO JAZMINE IS NOT LAKHWINDER WHALEY. Not Available [facility] ([facility]) [address] [place], [address], 10/31/2014 14:25:42 10/27/19 15 10/31/2014 bacte rial vagin osis + vagin itis panel , vagin al trich vag by STEVE NEGATI VE negati ve Not Available [facility] ([facility]) [address] [place], [address], 10/31/2014 14:25:42 10/27/19 15 10/31/2014 bacte rial vagin osis + vagin itis panel , vagin al chlamydia trachomatis, STEVE NEGATI VE negati ve Not Available [facility] ([facility]) [address] [place], [address], 10/31/2014 14:25:42 10/27/19 15 10/31/2014 bacte rial vagin osis + vagin itis panel , vagin al neisseria gonorrhoeae, STEVE NEGATI VE negati ve Not Available [facility] ([facility]) [address] [place], [address], 10/31/2014 14:25:42 10/27/19 15 10/28/2014 HSV (1+2) DNA, qual, PCR, unspe cifie d speci men hsv 1 STEVE NEGATI VE negati ve Not Available [facility] ([facility]) [address] [place], [address], 10/31/2014 14:25:43 10/27/19 15 10/28/2014 HSV (1+2) DNA, qual, PCR, unspe cifie d speci men hsv 2 STEVE NEGATI VE negati ve Not Available [facility] ([facility]) [address] [place], [address], 10/31/2014 14:25:43 10/27/19 15 10/28/2014 cultu re, vagin al/re ctal, strep tococ cus group B strep gp B STEVE NEGATI VE negati ve PENIC ILLIN G, AMPIC ILLIN , OR CEFAZ VLADIMIR ARE INDIC ATED FOR INTRA PARTU M PROPH YLAXI S OF PERIN ATAL GROUP B STREP (GBS) COLON IZATI ON. REFLE X SUSCE PTIBI LITY TESTI NG SHOUL D BE PERFO RMED PRIOR TO USE OF CLIND AMYCI N ONLY ON GBS ISOLA BAYLEE FROM PENIC ILLIN -JADEN RGIC WOMEN WHO ARE CONSI DERED A HIGH RISK FOR ANAPH YLAXI S. TREAT MENT WITH VANCO MYCIN WITHO UT ADDIT IONAL TESTI NG IS WARRA NTED IF RESIS TANCE TO CLIND AMYCI N IS NOTED . (CDC GUIDE LINES , MMWR, 2009) Not Available [facility] ([facility]) [address], [place], [address], 10/31/2014 14:25:43 10/27/19 15 10/30/2014 pap, IG + HPV, cervi earnest diagnosis: COMMEN T NEGAT AMINA FOR INTRA EPITH ELIAL LESIO N AND SHAMEKA MARTINEZ . Not Available [facility] ([facility]) [address], [place], [address], 11/02/2014 06:12:30 10/27/19 15 10/30/2014 pap, IG + HPV, cervi earnest specimen adequacy: COMMEN T SATIS FACTO RY FOR EVALU ATION . ENDOC ERVIC AL AND/O R SQUAM OUS METAP LASTI C CELLS (ENDO CERVI EARNEST COMPO NENT) ARE PRESE NT. Not Available [facility] ([facility]) [address], [place], [address], 11/02/2014 06:12:30 10/27/19 15 10/30/2014 pap, IG + HPV, cervi earnest clinician provided ICD9: COMMEN T V25.4 0 ; UNSPE CIFIE D CONTR ACEPT AMINA SURVE ILLAN CE Not Available [facility] ([facility]) [address] [place], [address], 11/02/2014 06:12:30 10/27/19 15 10/30/2014 pap, IG + HPV, cervi earnest performed by: EMILIANO RAMOS, LUIS ARMANDO Marcano (ASCP ) Not Available [facility] ([facility]) [address] [place], [address], 11/02/2014 06:12:30 10/27/19 15 10/30/2014 pap, IG + HPV, cervi earnest . . Not Available [facility] ([facility]) [address] [place], [address], 11/02/2014 06:12:30 10/27/19 15 10/30/2014 pap, IG + HPV, cervi earnest note: EMILIANO Marcano THE PAP SMEAR IS A SCREE LORA TEST DESIG JULIAN TO AID IN THE DETEC TION OF ALICIA LIGNA NT AND MALIG NANT CONDI TIONS OF THE UTERI NE CERVI X. IT IS NOT A DIAGN OSTIC PROCE DURE AND SHOUL D NOT BE USED THE SOLE MEANS OF DETEC TING CERVI EARNEST CANCE R. BOTH FALSE -POSI TIVE AND FALSE -NEGA TIVE REPOR TS DO OCCUR . . Not Available [facility] ([facility]) [address] [place], [address], 11/02/2014 06:12:30 10/27/1910/30/2014 pap, IG + HPV, cervi earnest test methodology: EMILIANO Marcano THIS LIQUI D BASED THINP REP(R ) PAP TEST WAS SCREE JULIAN WITH THE USE OF AN IMAGE GUIDE Dhruv Hancock Not Available [facility] ([facility]) [address] [place], [address], 11/02/2014 06:12:30 10/27/19 15 11/01/2014 pap, IG + HPV, cervi earnest HPV aptima NEGATI VE negati ve THIS TEST DETEC TS FOURT EEN HIGH- RISK HPV TYPES (16/1 8/31/ 33/35 /39/4 5/ 51/52 /56/5 8/59/ 66/68 ) WITHPrema ANDRADE . Not Available [facility] ([facility]) [address] [place], [address], 11/02/2014 06:12:30 05/25/20 15 05/26/2015 CBC WBC 4.4 x10e3 /uL 3.4-10 .8 Not Available [facility] ([facility]) [address] [place], [address], 05/26/2015 06:19:22 05/25/20 15 05/26/2015 CBC RBC 4.45 x10e6 /uL 3.77-5 .28 Not Available [facility] ([facility]) [address] [place], [address], 05/26/2015 06:19:22 05/25/20 15 05/26/2015 CBC hemoglobin 13.4 g/dL 11.1-1 5.9 Not Available [facility] ([facility]) [address] [place], [address], 05/26/2015 06:19:22 05/25/20 15 05/26/2015 CBC hematocrit 39.8 % 34.0-4 6.6 Not Available [facility] ([facility]) [address] [place], [address], 05/26/2015 06:19:22 05/25/20 15 05/26/2015 CBC MCV 89 fL 79-97 Not Available [facility] ([facility]) [address] [place], [address], 05/26/2015 06:19:22 05/25/20 15 05/26/2015 CBC MCH 30.1 pg 26.6-3 3.0 Not Available [facility] ([facility]) [address] [place], [address], 05/26/2015 06:19:22 05/25/20 15 05/26/2015 CBC MCHC 33.7 g/dL 31.5-3 5.7 Not Available [facility] ([facility]) [address], [place], [address], 05/26/2015 06:19:22 05/25/20 15 05/26/2015 CBC RDW 13.5 % 12.3-1 5.4 Not Available [facility] ([facility]) [address], [place], [address], 05/26/2015 06:19:22 05/25/20 15 05/26/2015 CBC platelets 239 x10e3 /uL 150-37 9 Not Available [facility] ([facility]) [address], [place], [address], 05/26/2015 06:19:22 05/25/20 15 05/26/2015 CBC neutrophils 59 % Not Avai lable [facility] ([facility]) [address], [place], [address], 05/26/2015 06:19:22 05/25/20 15 05/26/2015 CBC lymphs 30 % Not Available [facility] ([facility]) [address], [place], [address], 05/26/2015 06:19:22 05/25/20 15 05/26/2015 CBC monocytes 9 % Not Availa ble [facility] ([facility]) [address], [place], [address], 05/26/2015 06:19:22 05/25/20 15 05/26/2015 CBC eos 2 % Not Available [facility] ([facility]) [address], [place], [address], 05/26/2015 06:19:22 05/25/20 15 05/26/2015 CBC basos 0 % Not Available [facility] ([facility]) [address] [place], [address], 05/26/2015 06:19:22 05/25/20 15 05/26/2015 CBC immature cells 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 Available [facility] ([facility]) [address] [place], [address], 05/26/2015 06:19:22 05/25/20 15 05/26/2015 CBC neutrophils (absolute) 2.6 x10e3 /uL 1.4-7. 0 Not Available [facility] ([facility]) [address] [place], [address], 05/26/2015 06:19:22 05/25/20 15 05/26/2015 CBC lymphs (absolute) 1.3 x10e3 /uL 0.7-3. 1 Not Available [facility] ([facility]) [address] [place], [address], 05/26/2015 06:19:22 05/25/20 15 05/26/2015 CBC monocytes(ab solute) 0.4 x10e3 /uL 0.1-0. 9 Not Available [facility] ([facility]) [address] [place], [address], 05/26/2015 06:19:22 05/25/20 15 05/26/2015 CBC eos (absolute) 0.1 x10e3 /uL 0.0-0. 4 Not Available [facility] ([facility]) [address] [place], [address], 05/26/2015 06:19:22 05/25/20 15 05/26/2015 CBC baso (absolute) 0.0 x10e3 /uL 0.0-0. 2 Not Available [facility] ([facility]) [address] [place], [address], 05/26/2015 06:19:22 05/25/20 15 05/26/2015 CBC immature granulocytes 0 % Not Available [facility] ([facility]) [address] [place], [address], 05/26/2015 06:19:22 05/25/20 15 05/26/2015 CBC immature grans (abs) 0.0 x10e3 /uL 0.0-0. 1 Not Available [facility] ([facility]) [address] [place], [address], 05/26/2015 06:19:22 05/25/20 15 05/26/2015 CBC NRBC 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 Available [facility] ([facility]) [address] [place], [address], 05/26/2015 06:19:22 05/25/20 15 05/26/2015 CBC hematology comments: 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 Available [facility] ([facility]) [address] [place], [address], 05/26/2015 06:19:22 05/25/20 15 05/26/2015 CMP, serum or plasm a glucose, serum 84 mg/dL 65-99 Not Available [facility] ([facility]) [address] [place], [address], 05/26/2015 06:19:23 05/25/20 15 05/26/2015 CMP, serum or plasm a BUN 10 mg/dL 6-20 Not Available [facility] ([facility]) [address] [place], [address], 05/26/2015 06:19:23 05/25/20 15 05/26/2015 CMP, serum or plasm a creatinine, serum 0.57 mg/dL 0.57-1 .00 Not Available [facility] ([facility]) [address] [place], [address], 05/26/2015 06:19:23 05/25/20 15 05/26/2015 CMP, serum or plasm a eGFR if nonafricn AM 130 mL/mi n/1.7 3 >59 Not Available [facility] ([facility]) [address], [place], [address], 05/26/2015 06:19:23 05/25/20 15 05/26/2015 CMP, serum or plasm a eGFR if africn AM 150 mL/mi n/1.7 3 >59 Not Available [facility] ([facility]) [address], [place], [address], 05/26/2015 06:19:23 05/25/20 15 05/26/2015 CMP, serum or plasm a BUN/creatini ne ratio 18 8-20 Not Available [facility] ([facility]) [address], [place], [address], 05/26/2015 06:19:23 05/25/20 15 05/26/2015 CMP, serum or plasm a sodium, serum 142 mmol/ L 134-14 4 Not Available [facility] ([facility]) [address] [place], [address], 05/26/2015 06:19:23 05/25/20 15 05/26/2015 CMP, serum or plasm a potassium, serum 4.3 mmol/ L 3.5-5. 2 Not Available [facility] ([facility]) [address] [place], [address], 05/26/2015 06:19:23 05/25/20 15 05/26/2015 CMP, serum or plasm a chloride, serum 103 mmol/ L 97-108 Not Available [facility] ([facility]) [address], [place], [address], 05/26/2015 06:19:23 05/25/20 15 05/26/2015 CMP, serum or plasm a carbon dioxide, total 25 mmol/ L 18-29 Not Available [facility] ([facility]) [address] [place], [address], 05/26/2015 06:19:23 05/25/20 15 05/26/2015 CMP, serum or plasm a calcium, serum 9.3 mg/dL 8.7-10 .2 Not Available [facility] ([facility]) [address] [place], [address], 05/26/2015 06:19:23 05/25/20 15 05/26/2015 CMP, serum or plasm a protein, total, serum 6.7 g/dL 6.0-8. 5 Not Available [facility] ([facility]) [address] [place], [address], 05/26/2015 06:19:23 05/25/20 15 05/26/2015 CMP, serum or plasm a albumin, serum 4.4 g/dL 3.5-5. 5 Not Available [facility] ([facility]) [address] [place], [address], 05/26/2015 06:19:23 05/25/20 15 05/26/2015 CMP, serum or plasm a globulin, total 2.3 g/dL 1.5-4. 5 Not Available [facility] ([facility]) [address] [place], [address], 05/26/2015 06:19:23 05/25/20 15 05/26/2015 CMP, serum or plasm a A/G ratio 1.9 1.1-2. 5 Not Available [facility] ([facility]) [address] [place], [address], 05/26/2015 06:19:23 05/25/20 15 05/26/2015 CMP, serum or plasm a bilirubin, total 0.3 mg/dL 0.0-1. 2 Not Available [facility] ([facility]) [address] [place] [address], [address], 05/26/2015 06:19:23 05/25/20 15 05/26/2015 CMP, serum or plasm a alkaline phosphatase, S 61 IU/L 39-117 Not Available [facility] ([facility]) [address] [place], [address], 05/26/2015 06:19:23 05/25/20 15 05/26/2015 CMP, serum or plasm a AST (SGOT) 13 IU/L 0-40 Not Available [facility] ([facility]) [address] [place], [address], 05/26/2015 06:19:23 05/25/20 15 05/26/2015 CMP, serum or plasm a ALT (SGPT) 12 IU/L 0-32 Not Available [facility] ([facility]) [address] [place], [address], 05/26/2015 06:19:23 05/25/20 15 05/26/2015 urina lysis , compl ete specific gravity 1.023 1.005- 1.030 Not Available [facility] ([facility]) [address] [place], [address], 05/26/2015 06:19:24 05/25/20 15 05/26/2015 urina lysis , compl ete pH 7.0 5.0-7. 5 Not Available [facility] ([facility]) [address] [place], [address], 05/26/2015 06:19:24 05/25/20 15 05/26/2015 urina lysis , compl ete urine-color YELLOW yellow Not Available [facility] ([facility]) [address] [place], [address], 05/26/2015 06:19:24 05/25/20 15 05/26/2015 urina lysis , compl ete appearance CLOUDY clear abnormal Not Available [facility] ([facility]) [address] [place], [address], 05/26/2015 06:19:24 05/25/20 15 05/26/2015 urina lysis , compl ete WBC esterase 2+ negati ve abnormal Not Available [facility] ([facility]) [address] [place], [address], 05/26/2015 06:19:24 05/25/20 15 05/26/2015 urina lysis , compl ete protein TRACE negati ve/tra ce Not Available [facility] ([facility]) [address] [place], [address], 05/26/2015 06:19:24 05/25/20 15 05/26/2015 urina lysis , compl ete glucose NEGATI VE negati ve Not Available [facility] ([facility]) [address] [place], [address], 05/26/2015 06:19:24 05/25/20 15 05/26/2015 urina lysis , compl ete glucose 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 Available [facility] ([facility]) [address] [place], [address], 05/26/2015 06:19:24 05/25/20 15 05/26/2015 urina lysis , compl ete ketones NEGATI VE negati ve Not Available [facility] ([facility]) [address] [place], [address], 05/26/2015 06:19:24 05/25/20 15 05/26/2015 urina lysis , compl ete occult blood NEGATI VE negati ve Not Available [facility] ([facility]) [address] [place], [address], 05/26/2015 06:19:24 05/25/20 15 05/26/2015 urina lysis , compl ete bilirubin NEGATI VE negati ve Not Available [facility] ([facility]) [address] [place], [address], 05/26/2015 06:19:24 05/25/20 15 05/26/2015 urina lysis , compl ete urobilinogen ,semi-qn 1.0 mg/dL 0.2-1. 0 Not Available [facility] ([facility]) [address], [place], [address], 05/26/2015 06:19:24 05/25/20 15 05/26/2015 urina lysis , compl ete nitrite, urine NEGATI VE negati ve Not Available [facility] ([facility]) [address], [place], [address], 05/26/2015 06:19:24 05/25/20 15 05/26/2015 urina lysis , compl ete microscopic examination SEE BELOW: MICRO SCOPI C WAS INDIC ATED AND WAS PERFO RMED. Not Available [facility] ([facility]) [address], [place], [address], 05/26/2015 06:19:24 05/25/20 15 05/26/2015 urina lysis , compl ete WBC 0-5 /hpf 0 - 5 Not Available [facility] ([facility]) [address] [place], [address], 05/26/2015 06:19:24 05/25/20 15 05/26/2015 urina lysis , compl ete RBC 3-10 /hpf 0 - 2 abnormal Not Available [facility] ([facility]) [address], [place], [address], 05/26/2015 06:19:24 05/25/20 15 05/26/2015 urina lysis , compl ete epithelial cells (non renal) 0-10 /hpf 0 - 10 Not Available [facility] ([facility]) [address] [place], [address], 05/26/2015 06:19:24 05/25/20 15 05/26/2015 urina lysis , compl ete epithelial cells (renal) 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 Available [facility] ([facility]) [address] [place], [address], 05/26/2015 06:19:24 05/25/20 15 05/26/2015 urina lysis , compl ete casts 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 Available [facility] ([facility]) [address], [place], [address], 05/26/2015 06:19:24 05/25/20 15 05/26/2015 urina lysis , compl ete cast type 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 Available [facility] ([facility]) [address], [place], [address], 05/26/2015 06:19:24 05/25/20 15 05/26/2015 urina lysis , compl ete comment 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 Available [facility] ([facility]) [address], [place], [address], 05/26/2015 06:19:24 05/25/20 15 05/26/2015 lipid panel , serum cholesterol, total 115 mg/dL 100-19 9 Not Available [facility] ([facility]) [address], [place], [address], 05/26/2015 06:19:24 05/25/20 15 05/26/2015 lipid panel , serum triglyceride s 76 mg/dL 0-149 Not Available [facility] ([facility]) [address], [place], [address], 05/26/2015 06:19:24 05/25/20 15 05/26/2015 lipid panel , serum HDL cholesterol 40 mg/dL >39 ACCOR DING TO ATP-I II GUIDE LINES , HDL-C >59 MG/DL IS CONSI DERED A NEGAT AMINA RISK FACTO R FOR CHD. 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 chol/HDL ratio 2.9 ratio _unit s 0.0-4. 4 T. CHOL/ HDL RATIO MEN WOMEN 1/2 AVG.R ISK 3.4 3.3 AVG.R ISK 5.0 4.4 2X AVG.R ISK 9.6 7.1 3X AVG.R ISK 23.4 11.0 Not Available [facility] ([facility]) [address], [place], [address], 05/26/2015 06:19:24 03/22/20 15 03/22/2015 imagi ng/di agnos tic resul t No observ ation record ed. eewig Not Available 2014 14:37:22 08/17/19 16 08/17/2015 imagi ng/di agnos tic resul t No observ ation record ed. eewig Not Available 2015 14:37:29 02/29/20 16 02/29/2016 CT, abdom en, w/o contr ast No observ ation record ed. [facility] (Imaging) [address] [place], [address], 02/29/2016 13:46:24 02/29/20 16 NM, hepat obili emilie scan, w/ CCK No observ ation record ed. [facility] (Imaging) [address] [place], [address], 02/29/2016 13:46:48 03/05/20 16 02/29/2016 US, abdom en, limit ed No observ ation record ed. eewig Not Available 2015 14:45:40 09/19/[address], abdom en + pelvi s, w/ contr ast No observ ation record ed. [facility] Not Available 2016 13:57:24 11/23/19 17 CT, abdom en + pelvi s, w/ contr ast No observ ation record ed. [facility] Not Available 2016 14:32:39 11/23/19 17 US, patelb ladde r No observ ation record ed. [facility] Not Available 2016 14:32:39 04/29/20 17 04/16/2017 CT, abdom en, w/ contr ast No observ ation record ed. eewig Not Available 2016 09:31:57 08/22/19 18 XR, chest , 2 view No observ ation record ed. [facility]ig Not Available 2017 09:20:10 Result Notes None recorded. Problems Name Problem SNOMED Code Status Onset Date Resolution Date Notes Provider Name and Address Organization Details Recorded Time Anxiety 16867491 Active Arturo Timmy null, [place] - [facility] 6 17:29:00 Depressive disorder 22444044 Active Art[place] [facility] 6 17:29:00 Anxiety 87118232 Completed Art[place] Tim[place] [facility] 5 15:16:39 Depressive disorder 77103721 Completed Art[place] [facility] 5 15:16:39 depression 92334472 Active Art[place] [facility] 6 17:29:00 depression 58068905 Completed Art[place] [facility] 5 15:16:39 Bacterial vaginosis 376579541 Active Art[place] [facility] 6 17:29:00 Bacterial vaginosis 947192056 Completed [place] [facility] 5 15:16:39 Menorrhagi a 092113849 Active Delmy Leyva PA-C Attn: Accounting ,[address] [place], [address] , [place] - [facility] 6 13:31:25 Nystagmus 270922 Active Arturo [place] [facility] 6 17:29:00 Migraine 70074536 Active Arturo [place] [facility] 6 17:29:00 Fatigue 55823163 Active Delmy Leyva PA-C Attn: Accounting ,[address], [place], [address] , [facility] 6 13:31:25 Problem Notes None recorded. Procedures Surgical History Date Name Laterality Status Provider Name and Address Organization Details Recorded Time 5 Control Implant Insertion completed Arturo Warner ID - [facility] 12/21/2014 23:50:32 5 Caesarean Section completed Argelia Hernandez MA ID - [facility] 10/06/2014 17:12:29 Imaging Results None recorded. Procedure Notes None recorded. Medical Equipment None Reported. Allergies Allergen ID Allergen Name Allergen Category Reaction Reaction Severity Criticality Documentation Date Start Date Code Code System Note Provider Name and Address Organization Details Recorded Time 76498 Depakote medicatio n hives severe Not available 10/06/2014 20050 9 RxNorm MONI So, [facility] 5 17:07:33 07696 Cipro medicatio n photosens itivity severe Not available 10/06/2014 89918 3 RxNorm swell ing of eyes MONI So, [facility] 5 17:08:23 Medications Name Sig Start Date Stop Date Status Note LastModified by Organization Details LastModified Time amoxicillin 500 mg capsule active Not Available Not Available Not Available buspirone 5 mg tablet active Not Available Not Available No t Available citalopram 40 mg tablet Take 1 tablet every day by oral route. active Not Available Not Available No t Available azithromyci n 250 mg tablet active Not Available Not Available Not Available ibuprofen 800 mg tablet TAKE 1 TABLET BY MOUTH THREE TIMES DAILY NEEDED FOR CRAMPS 05/23 completed Not Available Not Available Not Available Lidocaine Viscous 2 % mucosal solution 05/23 completed Not Available Not Available Not Available clarithromy dontae 500 mg tablet active Not Available Not Available Not Available hydrocodone 5 mg-acetamin ophen 325 mg tablet 05/23 completed Not Available Not Available Not Available metronidazo le 0.75 % (37.5 mg/5 gram) vaginal gel Insert 1 applicato rful every day by vaginal route at bedtime for 5 days. active Not Available Not Available No t Available ondansetron HCl 4 mg tablet active Not Available Not Available Not Available quetiapine 200 mg tablet active Not Available Not Available Not Available sumatriptan 50 mg tablet Take 1 tablet 3 times a day by oral route as needed. active Not Available Not Available No t Available penicillin V potassium 500 mg tablet 05/23 completed Not Available Not Available Not Available metronidazo le 500 mg tablet Take 1 tablet twice a day by oral route. active Not Available Not Available No t Available Tamiflu 75 mg capsule active Not Available Not Available N ot Available butalbital- acetaminoph en-caffeine 50 mg-325 mg-40 mg tablet active Not Available Not Available Not Available lamotrigine 25 mg tablet active Not Available Not Available Not Available Vitamin tablet Take 1 tablet every day by oral route as directed. 2015 active Not Available Not Available Not Avai lable oxycodone-a cetaminophe n 5 mg-325 mg tablet active Not Available Not Available No t Available fluvoxamine 25 mg tablet active Not Available Not Available Not Available ranitidine 150 mg tablet active Not Available Not Available Not Available progesteron e micronized 200 mg capsule active Not Available Not Available Not Available sertraline 25 mg tablet active Not Available Not Available Not Available omeprazole 20 mg capsule,del ayed release active Not Available Not Available Not Available ibuprofen 600 mg tablet active Not Available Not Available Not Available fluticasone propionate 50 mcg/actuati on nasal spray,suspe nsion active Not Available Not Available Not Available medroxyprog esterone 150 mg/mL intramuscul ar suspension Inject 150 mL every 3 months by intramusc ular route. active Not Available Not Available No t Available naproxen 500 mg tablet Take 1 tablet twice a day by oral route as needed. active Not Available Not Available No t Available metoclopram raciel 10 mg tablet active Not Available Not Available Not Available Ventolin HFA 90 mcg/actuati on aerosol inhaler active Not Available Not Available Not Available hydroxyzine pamoate 25 mg capsule active Not Available Not Available N ot Available bupropion HCl XL 150 mg 24 hr tablet, extended release Take 1 tablet every day by oral route. active Not Available Not Available No t Available nitrofurant oin monohydrate /macrocryst als 100 mg capsule active Not Available Not Available Not Available ferrous sulfate active Not Available Not Available Not Available ibuprofen active Not Available Not Ting ilable Not Available active Not Available Not Avai lable Not Available Seasonique 0.15 mg-30 mcg (84)/10 mcg(7) tablets,3 month dose pack Take 1 tablet every day by oral route. 2015 active Not Available Not Available Not Avai lable Plan B One-Step 1.5 mg tablet Take 1 tablet by oral route. 2014 active Not Available Not Available Not Avai lable Viibryd 40 mg tablet active Not Available Not Available No t Available Nexplanon 68 mg subdermal implant Inject 1 implant by subcutane ous route. 2014 active Not Available Not Available Not Avai lable calcium 600 mg (as carbonate)- vitamin D3 20 mcg (800 unit) tablet Take 1 tablet twice a day by oral route for 30 days. 2015 active Not Available Not Available Not Avai lable PrePlus 27 mg iron-1 mg tablet active Not Available Not Available No t Available Xulane 150 mcg-35 mcg/24 hr transdermal patch Appy 1 patch to skin weekly 2015 active Not Available Not Available Not Avai lable Vitals Date Recorded Body weight Body height Body mass index (BMI) Systolic blood pressure Diastolic blood pressure Provider Name and Address Organization Details Last Updated DateTime 10/26/2014 58807.40 972 g 162.56 cm 26.8 kg/m2 102 mm[Hg] 78 mm[Hg] Estiven Zambrano RN [facility] 5 15:16:56 Date Recorded Body height Body mass index (BMI) Body weight Systolic blood pressure Diastolic blood pressure Provider Name and Address Organization Details Last Updated DateTime 12/12/2015 162.56 cm 26.4 kg/m2 67713.22 498 g 98 mm[Hg] 52 mm[Hg] Adriana Islas MA [facility] 6 17:11:14 Date Recorded Body height Body mass index (BMI) Body weight Systolic blood pressure Diastolic blood pressure Provider Name and Address Organization Details Last Updated DateTime 12/21/2014 162.56 cm 26.3 kg/m2 68066.63 261 g 110 mm[Hg] 72 mm[Hg] Adriana Islas MA [facility] 5 11:03:08 Date Recorded Body mass index (BMI) Body temperature Respiratory rate Heart rate Body height Body weight Systolic blood pressure Diastolic blood pressure Provider Name and Address Organization Details Last Updated DateTime 6 26.3 kg/m2 98 [degF] 16 /min 72 /min 162.56 cm 10582.0 99069 g 122 mm[Hg] 76 mm[Hg] Bright Watkins [facility] 6 12:12:54 Date Recorded Respiratory rate Body weight Oxygen saturation Oxygen saturation in Arterial blood by Pulse oximetry Body height Body mass index (BMI) Heart rate Body temperature Systolic blood pressure Diastolic blood pressure Provider Name and Address Organization Details Last Updated DateTime 5 20 /min 37580.8 94406 g 98 % 98 % 162.56 cm 26.2 kg/m2 84 /min 98.6 [degF] 110 mm[Hg] 82 mm[Hg] Joaquim Marcus MA [facility] 5 14:35:40 Social History Question Answer Notes LastModified by Organizat ion Details LastModified Time Tobacco Smoking Status Current Every Day Smoker Arturo Warner nata [facility] 10/06/2014 17:20:01 Do You Have An Advance Directive? No Information not available 12/12/2015 Is Blood Transfusion Acceptable In An Emergency? Yes Information not available 12/12/2015 What Is Your Level Of Caffeine Consumption? Heavy Information not available 10/06/2014 How Much Tobacco Do You Chew? None Information not available 10/06/2014 What Type Of Diet Are You Following? REGULAR Information not available 10/06/2014 Education 12 Ged Information no t available 10/06/2014 Live Alone Or With Others? With Others Lives With Children Information not available 10/06/2014 How Many Children Do You Have? 2 Information not available 10/06/2014 Performs Monthly Self-breast Exam? Yes Information not available 10/06/2014 Do You Use Protection During Sex? No Information not available 12/12/2015 What Is Your Relationship Status? Single Information not available 10/06/2014 Seat Belts Used Routinely Yes Information not available 10/06/2014 Are You Sexually Active? No Information not available 10/06/2014 At What Age Did You Start Smoking Tobacco? 16 Information not available 12/12/2015 How Much Tobacco Do You Smoke? 0.5 PPD Information not available 10/06/2014 General Stress Level Low Information not available 12/12/2015 Do You Use Sunscreen Routinely? Yes Information not available 10/06/2014 How Many Years Have You Smoked Tobacco? 8 Information not available 12/12/2015 Sex: Unknown Functional Status Question Answer Note LastModified by Organizat ion Details LastModified Time What is your level of alcohol consumption? None Information not available 10/06/2014 Are you currently employed? 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 None Information not available 10/06/2014 Mental Status None recorded. Family History Relationship Description Onset Age of this Age Resolved Age Notes LastModified by Organization Details LastModified Time Father Hypertensive disorder [email or web address] Not available 12/11 17:29:00 Mother Myocardial infarction [email or web address] Not available 01/2016 17:29:00 Mother Cerebrovascu lar accident [email or web address] Not available 17:29:00 Mother Heart disease [email or web address] Not available 12/11 17:29:00 Medical History Condition Response Heart Problems Y Other N High Blood Pressure N Breast Cancer N Thyroid Problems N Kidney or Bladder Problems N Lung Disease N GI Problems N Depression N Blood Clots N Acne N Eating Disorder N Breast Problem N Anemia N Anesthesia Complications N Headaches/Migraines N Ovarian Cancer N Diabetes N Anxiety Disorder Y Muscle, Joint, or Bone Problems N Blood Transfusions N Seizures/Epilepsy N Arthritis N Polyps N Infertility N Acid Reflux (GERD) N Cancer N Stroke N Abuse/Domestic Violence N Asthma Y Endometriosis N High Cholesterol N Hepatitis N Liver Disease N Heart Disease N Fibromyalgia N Pre-Eclampsia N Hypertension N Osteoporosis N Kidney Disease N Gynecological History Statement/Question Response Flow Heavy On BCP's at Conception? N STIs/STDs N HPV Vaccine Y Duration of Flow (days) 5 Age at Menarche 13 Current Control Method Implant Age at First Child 16 Sexually Active? N Menses Monthly Y Sexual Problems? N LMP Approximate Desired Control Method Unknown Obstetrics History GPAL:G 2 P 2 0 0 2 Type Value Multiple Births 0 Full Term 2 Induced 0 Spontaneous 0 Premature 0 Living 2 Ectopics 0 Total 2 Immunizations Vaccine Type Date Status Note Provider Nam e and Address Organization Details Recorded Time Influenza, high-dose, trivalent, PF 5 completed Arturo Warner [facility], [place] - [facility] 10/06/2014 17:20:22 Influenza, split virus, quadrivalent, preservative 5 completed Not Available [facility] 07/24/2019 02:40:54 Past Encounters Encounter ID Performer Location Encounter Start Date Encounter Closed Date Diagnosis/Indication Diagnosis SNOMED-CT Code Diagnosis ICD10 Code Diagnosis Note [id number] [facility]PER[employer]) [address] [place] [address] 10/06/2014 16:47:45 10/06/2014 17:37:21 care 700157867 Anxiety 92167784 Depressive disorder 18144004 [id number] MD Maryellen Brian ([employer]ACH[employer] OPERATOR) [address] [place] [address] 10/26/2014 14:46:33 10/26/2014 15:49:53 Family planning surveillance 871872747 depression 22649663 care 438363789 [id number] [facility]PER[employer]) [address] [place] [address] 12/21/2014 10:28:25 12/21/2014 11:34:01 Subcutaneous contraceptive implant present 416429287 depression 96023256 Implantati on of subcutaneous contraceptive 380676934 [id number] MD Maryellen Pickens (Adult Med) [address] [place] [phone] 05/23/2015 14:19:23 05/23/2015 15:33:30 Nystagmus 018233 H55.00 States that her mom notice this a few months ago when sitting - but with movement it goes away Migraine 48558176 G43.90 9 WIll obtain ED notes from [facility] and refer to neurology Anxiety 30728828 F41.9 hx/o ADHD/ADD and is also wanting to get back on Adderall - I informed patient that I do not prescribe Adderall and she needs to see psych for this. Active or passive immunization 668522376 Z23 Adult heal th examination 046717056 Z00.00 [id number] MD Maryellen Brian ([employer] OPERATOR) [address] [place] [address] 12/12/2015 15:45:21 12/12/2015 17:49:24 Family planning surveillance 899958227 Z30.09 Subcutaneo us contraceptive implant present 367392943 Z30.42 Hypoestrog enism from implant is causing decreased libido and irregular periods. Given Xulane to regulate. [id number] MD Maryellen Ann (Adult Med) [address] [place] [address] 02/22/2016 11:54:06 02/22/2016 13:31:55 Fatigue 06130114 R53.83 Advised to take the daily vitamins that Dr. Warner prescribed - will check labs Advised to try to find some time for herself during the week for some me-time Menorrhagia 795424060 N9 2.0 Health Concerns Section Related Observation LastModified by Organization Detai ls LastModified Time None Recorded Concern Status LastModified by Organization Details LastModified Time None Recorded Advance Directives Directive N: Payers Encounter Date Sequence Insurance Name Policy Number Policy Lopez Covered Member ID Lopez Member ID Guarantor Name 10/26/2014 1 [place] Isabel Ann [id number] Isabel Ann 10/26/2014 2 [place] WHEN [place] OR MEDICARE REPLACEMENT PRIMARY) Isabel Ann [id number] Isabel Ann 12/21/2014 1 [place] Isabel Taj Seth [id number] Isabel Ann 12/21/2014 2 [place]IC[place]PLACEMENT [place]IMARY) Isabel Ann [id number] Isabel Ann 05/23/2015 1 [place] Isabel Ann [id number] Isabel Ann 05/23/2015 2 [place]IC[place] REPLACEMENT [place]IMARY) Isabel Ann [id number] Isabel Ann 12/12/2015 1 [place] Isabel Ann [id number] Isabel Ann 12/12/2015 2 [place]IC[place] REPLACEMENT PRIMARY) Isabel Ann [id number] Isabel Ann 02/22/2016 1 [place] Isabel Ann [id number] Isabel Ann 02/22/2016 2 [place]IC[place] REPLACEMENT [place]) Isabel Ann [id number] Isabel Ann Notes Date Note Type Note Provider Name and Address Organization Details Recorded Time 05/23/2015 text/html Here to [facility] Delmy Leyva PA-C Attn: Accounting[address] [facility], [place], [address], [facility] 05/23/2015 15:33:22 12/12/2015 text/html Irregular PeriodsReported bypatient.Onset/Timin g:persistent Quality:moderate Severity:moderate Associated Symptoms:no fatigue; no irritability; good quality of lifeNotes:25 yo WF presenting for irregular periods and decreased sex drive; currently on Nexplonon. Arturo peace, [place] - [facility] 12/12/2015 17:49:09 02/22/2016 text/html FatigueReported bypatient.Severity:no rmal sleep patterns;worsening Duration:constant Timing:worse Context:2 kids at home; no help from her children's father Modifying Factors:new stressors in life(single mom at home with no outlets);not taking vitamins Associated Symptoms:no drug/alcohol withdrawal; no snoring; periods of not breathing (apnea) have not been observed; no recent change in weight;depression;anx iety Patient came in today requesting a referral to an OBGYN that will perform a tubal ligation. Patient states that Dr. Warner had told her in the past that she is too young for this. SHe has two children - ages 8 (son) and 18 months (daughter with Down Syndrome) and states that she does not want anymore. She currently has Nexplanon but has not stopped bleeding since its insertion and has tried other controls to stop the bleeding to no avail. We had a long discussion about the implications of a tubal ligation and that if she would want to have more children in the future - we discussed the options of Mirena and Paraguard as well. Delmy Leyva PA-C Attn: Accounting,[address] , [place], [address], [place] ID - [id number] 02/22/2016 13:31:44 OBGyn Episode Ob Episode Information Episode Created Date Number of Fetuses Patient Bloodtype Patient rh Status Prepregnancy Weight lbs Domestic Partner Domestic Partner Phone Father Name Rn Telemetry Status 10/07/19 15 1 CLOSED Fetus Data First Name Last Name Admitted to NICU Weight (g) Sex Living Outcome Pediatric Complications Fetus ID Race Codes Race Delivery Type Lisa Noe er-Mi ller false 3968.93 F Full Term Mosiac Downs, PFO, Enlarged Heart 88461 2106-3 White Problems Problem Notes Problem Name Start Date End Date Resolution Snomed Code Not e Anxiety [id number] Depressive disorder [id number] depression [id number] Bacterial vaginosis [id number] Jamaal Calculation Initial Jamaal Date Initial Exam Date Initial Exam Provider Initial Ultrasound Date Last Menstrual Period Date Ultra Sound Weeks Gestation 10/06/2014 0 Eighteen To Twenty Week Jamaal Update Ultra Sound Date Fundal Height At Umbil Quickening Date Ultra Sound Latest Weeks Gestation Final Jamaal Confirmed By Final Jamaal Confirmed Date Final Jamaal Date Ultra Sound Latest Days Gestation 0 0 Pre-grupo Flowsheet Flowsheet Date 10/06/2014 Laboy Score Blood Edema Fundus Height Fundus Units Glucose Ketones Leukocytes Nitrite Labor Signs Protein Cervic Dilation Cervic Effacement Cervic Station Type Weight in lbs Pre/Post Dialysis Refused [id number] BP Diastolic BP Location Tested BP Systolic BP Type 68 R arm 88 sitting Fetus Heart Rate Present Fetus Movement Comments Flowsheet Date 10/26/2014 Laboy Score Blood Edema Fundus Height Fundus Units Glucose Ketones Leukocytes Nitrite Labor Signs Protein Cervic Dilation Cervic Effacement Cervic Station Type Weight in lbs Pre/Post Dialysis Refused [phone] BP Diastolic BP Location Tested BP Systolic BP Type 78 R arm 102 sitting Fetus Heart Rate Present Fetus Movement Comments Menstrual History Last Menstrual Date Menses Monthly On Bcp Conception Prior Menses Frequency Hcg Plus Date Menarche Onset Age Delivery Information Delivery Date Delivery Type Labor Anesthesia Weeks Gestation Incision Type Labor Labor Length Hrs Delivered By Post Complications Tubal Sterilization Discharge Date Comments 5 None [facility] 39 Low Transvers e false None false 09/25/2014 Dr. Ana wallis Md. Discharge Information Feeding Method Contraceptive Method Maternal HG B and HCT Levels Bottle Ob Episode Information Episode Created Date Number of Fetuses Patient Bloodtype Patient rh Status Prepregnancy Weight lbs Domestic Partner Domestic Partner Phone Father Name Rn Telemetry Status 10/07/19 15 1 CLOSED Fetus Data First Name Last Name Admitted to NICU Weight (g) Sex Living Outcome Pediatric Complications Fetus ID Race Codes Race Delivery Type 3968.93 F Full Term [id number] Jamaal Calculation Initial Jamaal Date Initial Exam Date Initial Exam Provider Initial Ultrasound Date Last Menstrual Period Date Ultra Sound Weeks Gestation 0 Eighteen To Twenty Week Jamaal Update Ultra Sound Date Fundal Height At Umbil Quickening Date Ultra Sound Latest Weeks Gestation Final Jamaal Confirmed By Final Jamaal Confirmed Date Final Jamaal Date Ultra Sound Latest Days Gestation 0 0 Menstrual History Last Menstrual Date Menses Monthly On Bcp Conception Prior Menses Frequency Hcg Plus Date Menarche Onset Age Delivery Information Delivery Date Delivery Type Labor Anesthesia Weeks Gestation Incision Type Labor Labor Length Hrs Delivered By Post Complications Tubal Sterilization Discharge Date Comments 5 [facility]- idural 40 Raquel Discharge Information Feeding Method Contraceptive Method Maternal HG B and HCT Levels Ob Episode Information Episode Created Date Number of Fetuses Patient Bloodtype Patient rh Status Prepregnancy Weight lbs Domestic Partner Domestic Partner Phone Father Name Rn Telemetry Status 10/07/19 15 1 CLOSED Fetus Data First Name Last Name Admitted to NICU Weight (g) Sex Living Outcome Pediatric Complications Fetus ID Race Codes Race Delivery Type 3769.34 952 M Full Term [id number] Jamaal Calculation Initial Jamaal Date Initial Exam Date Initial Exam Provider Initial Ultrasound Date Last Menstrual Period Date Ultra Sound Weeks Gestation 0 Eighteen To Twenty Week Jamaal Update Ultra Sound Date Fundal Height At Umbil Quickening Date Ultra Sound Latest Weeks Gestation Final Jamaal Confirmed By Final Jamaal Confirmed Date Final Jamaal Date Ultra Sound Latest Days Gestation 0 0 Menstrual History Last Menstrual Date Menses Monthly On Bcp Conception Prior Menses Frequency Hcg Plus Date Menarche Onset Age Delivery Information Delivery Date Delivery Type Labor Anesthesia Weeks Gestation Incision Type Labor Labor Length Hrs Delivered By Post Complications Tubal Sterilization Discharge Date Comments 8 General 40 lópez Ann Discharge Information Feeding Method Contraceptive Method Maternal HG B and HCT Levels
--- OUTSIDE RECORDS SUMMARY | 2024-12-03 01:09 | XMS_ITS | Clinical Summary ---
Author Organization [facility] Address [address] [place] [id number] Phone Care Team Providers Care Academic Hospitalist Name Role Phone Unavailable Primary Care Provider Unavailabl e Allergies No known active allergies Medications No known medications Active Problems Problem Noted Date Diagnosed Date Negative test 11/09/2021 Social History Tobacco Use Types Packs/Day Years Used Date Smoking Tobacco: Unknown Alcohol Use Standard Drinks/Week Comments Not Currently 0 (1 standard drink = 0.6 oz pur e alcohol) Comments No Sex and Gender Information Value Date Recorded Sex Assigned at Not on file Legal Sex Female 4:15 PM CDT Gender Identity Not on file Sexual Orientation Not on file Last Filed Vital Signs Vital Sign Reading Time Taken Comments Blood Pressure 142/84 11/09/2021 3:59 PM CDT Pulse 94 11/09/2021 3:59 PM CDT Temperature 36.4 C (97.6 F) 11/09/2021 3:59 PM CDT Respiratory Rate 18 11/09/2021 3:59 PM CDT Oxygen Saturation 100% 11/09/2021 3:59 PM CDT Inhaled Oxygen Concentration - - Weight - - Height - - Body Mass Index - - Plan of Treatment Health Maintenance Due Date Last Done Comments HEPATITIS B VACCINES (1 of 3 - 19+ 3-dose series) 2009 HPV/Cotest (21-29) 2011 CERVICAL CANCER SCREENING 2020 HPV/Cotest (30-65) 2020 PAP SMEAR 2020 INFLUENZA VACCINE (#1) 2024 5, 07/07/2014 DTAP/TDAP/TD VACCINES (2 - Td or Tdap) 08/08/2024 08/08/2014 HPV VACCINES Aged Out No longer eligi ble based on patient's age to complete this topic Insurance [employer] PLUS [facility] Advance Directives For more information, please contact: [phone] * Full Code (Latest Code Status on File) Date Activated Date Inactivated Comments 11/09/2021 4:25 PM 11/09/2021 8:02 PM
--- OUTSIDE RECORDS SUMMARY | 2024-12-03 01:09 | XMS_ITS | Clinical Summary ---
Author Organization [facility] Address [address] [place] [address] Phone Care Team Providers Care Coal Dumping Equipment Operator Name Role Phone Unavailable Primary Care Provider Unavailabl e Allergies Active Allergy Reactions Criticality Noted Date Comments Ciprofloxacin Anaphylaxis,Hives,Sh ortness of Breath,Swelling High 04/11/2023 Medications cephALEXin (KEFLEX) 500 MG Capsule 04/08/2023 Active Immunizations Immunization Administration Dates Next Due Covid-19, Mrna, Lnp-s, Pf, 30 Mcg/0.3 Ml Dose (Tracie robison) 08/21/2021 Hepatitis B Vaccine,unspecified Formulation 05/08 Influenza, Injectable, Quadrivalent 05/23/2015 Influenza, high-dose, trivalent, PF 07/07/2014 Family History Medical History Relation Name Comments No Known Problems Brother Kidney Cancer Daughter Prostate Cancer Father Cancer Mother Chronic Obstructive Pulmonary Disease Mother Lung Cancer Mother Relation Name Status Comments Brother Alive Daughter Alive Father Alive Mother Social History Tobacco Use Types Packs/Day Years Used Date Smoking Tobacco: Every Day Cigarettes Tobacco Cessation:Ready to Q uit: Not Asked; Counseling Given: Not Answered Alcohol Use Standard Drinks/Week Comments Never 0 (1 standard drink = 0.6 oz pur e alcohol) Comments Unknown Sex and Gender Information Value Date Recorded Sex Assigned at Not on file Legal Sex Female 10:55 AM CDT Gender Identity Not on file Sexual Orientation Not on file Plan of Treatment Health Maintenance Due Date Last Done Comments Hepatitis C Virus (HCV) Screening 1990 TdaP Immunization 1990 Pneumococcal Immunization Combined (1 of 2 - PCV) 2009 Pap Smear 2011 Hepatitis B Immunization (2 of 3 - 19+ 3-dose series) 06/25/2013 05/28/2013 Cervical Cancer Screening (CCS) 2020 HPV/Cotest 2020 Influenza Immunization (#1) 03/07/202405/07, 07/07/2014 SARS-COV-2 Immunization ( season) 2024 08/21/2021 Respiratory Syncytial Virus (RSV) Immunization (Adult) (1 - 1-dose 75+ series) 2065 Meningococcal Immunization (ACWY) Aged Out No longer eligible b ased on patient's age to complete this topic Rotavirus Immunization Aged Out No lo nger eligible based on patient's age to complete this topic
[2024-12-03 01:10] VITALS: BP 120/78; PULSE 96; RESP 18; TEMP 36.6; O2SAT 100
--- OUTSIDE RECORDS SUMMARY | 2024-12-03 02:26 | XMS_ITS | Clinical Summary ---
Author Organization [facility] Address [address] [place] [address] Care Team Providers Care Instructor Product Inspection Name Role Phone Adriana Ordoñez CRIMINAL ANALYST-RESEARCH MICROBIOLOGIST Primary Care Provider Source Comments [facility],non-owned Affiliates and Associated Physician Practices is amultiple site organization consisting of ambulatory clinics and hospital sitesin [place], [place], [place] and [place]. This disclosure is being madepursuant to the Care Everywhere program and may not contain all information available regarding this patient. 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 PLEASE OBTAIN 5-10 mL CORD BLOOD IN GREEN TOP (SODIUM HEPARIN) TUBES. CONTACT GENETIC COUNSELORS AT EXT. 2030 OR 0551 ONCE SAMPLE HAS BEEN COLLECTED. SAMPLES CAN BE REFRIGERATED UNTIL NEXT BUSINESS DAY. PLEASE INFORM GENETICS WHERE THE SAMPLE IS BEING HELD. 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 Uncertain whether she required any surgery. Does follow with cardiology every 6 mo. Records requested from [facility]. Multiple soft markers for Down syndrome on ultra sound 05/09/2014 Overview (05/09/2014): Nuchal fold 5.88 mm EIF Mild renal pelvis dilitation Short [place], [place] H/O section 03/30/2014 Overview (07/04/2014): 38w primary elective CS at [facility] 2007 for suspected macrosomia, baby weighed 8lb 5oz; patient denies h/o GDM Operative report PLTCS per fax [facility] 06/29/14. Pyelonephritis 03/30/2014 Overview (06/01/2014): H/o pyelonephritis [...] from the original note were not included. [facility] PATIENT--PLEASE CALL [phone] IF TRIAGED OR ADMITTED Care Provider: Dr. Kaur-[facility] Care [place] consultants involved: Nurse coordinator- Xiao; cardiology- Dr. [...] delivery: Routine care is indicated for Shahla. Wine Maker: Dr. Marialuisa Minor- [facility] Planned surveillance: Released from [facility]; care to continue with Dr. Kaur. Planned delivery location: [facility] Planned GA at delivery: 39weeks 1day on day of c/s Planned mode of delivery: Repeat C- section scheduled 09/23/2014 at [facility] Placenta Instructions: None Autopsy indicated: Genetics note: 05/19/2014 Multiple minor markers second trimester ultrasound Amniocentesis 47,XX, +21 (2) / 46,XX (9) RECOMMEND CORD BLOOD BE COLLECTED AT DELIVERY FOR ADDITIONAL CYTOGENETIC STUDIES. PLEASE OBTAIN 5-10 mL CORD BLOOD IN GREEN TOP (SODIUM HEPARIN) TUBES. CONTACT GENETIC COUNSELORS AT EXT. 4955 OR 3319 ONCE SAMPLE HAS BEEN COLLECTED. SAMPLES CAN BE REFRIGERATED UNTIL NEXT BUSINESS DAY. PLEASE INFORM GENETICS WHERE THE SAMPLE IS BEING HELD. 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 Gender Identity Not on file Sexual Orientation [...] to complete this topic Insurance MEDICAID - [facility] MEDICARE MEDICAID - [place] Member Subscriber Plan / Payer (Ef fective for All Dates) Name:Isabel Ann Relation to Subscriber:Self Name:Isabel Ann Payer ID:Not on file Group ID:Not on file Type:Medicaid [place] Address: [place] [id number] MEDICAID - [place] Advance Directives * Full Code (Latest Code Status on File) Date Activated Date Inactivated Comments 09/23/2014 12:41 PM 09/25/2014 1:21 PM Care Teams Instructor Product Inspection Relationship Specialty Start Date End Date Adriana Ordoñez, [facility] [address] [place] [address] [place] [address] PCP - General Nurse Practitioner 08/29/14
--- OUTSIDE RECORDS SUMMARY | 2024-12-03 02:26 | XMS_ITS | Clinical Summary ---
Author Organization [facility] Address [address] [place] [phone] Phone Care Team Providers Care Sales Technician Home Theater Name Role Phone Unavailable Primary Care Provider [...] complete this topic Insurance [employer]MANA GOLD PLUS [facility] Advance Directives For more information, please contact: [phone] * Full Code (Latest Code Status on File) Date Activated Date Inactivated Comments 11/09/2021 4:25 PM 11/09/2021 8:02 PM
[2024-12-03] MEDS: HYDROcodone/acetaminophen (*CRX) 5-325 MG TABLET 1 TAB PO (02:55)
[2024-12-03] MEDS: IBUPROFEN 600 MG TABLET PO (02:55)
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
[2024-12-03 04:00] VITALS: BP 113/74; PULSE 89; RESP 18; O2SAT 99
== END 2024-12-03 05:29 | disposition home or self-care (01) ==
PROVIDERS: Emergency Provider Student in an Organized Health Care Education/Training Program
DX: S09.93XA Unspecified injury of face, initial encounter (principal); J45.909 Unspecified asthma, uncomplicated; K58.9 Irritable bowel syndrome, unspecified; F41.9 Anxiety disorder, unspecified; F31.9 Bipolar disorder, unspecified; F17.210 Nicotine dependence, cigarettes, uncomplicated; Z87.442 Personal history of urinary calculi; Z87.440 Personal history of urinary (tract) infections; Z79.899 Other long term (current) drug therapy; V47.6XXA Car passenger injured in collision with fixed or stationary object in traffic accident, initial encounter
CPT/HCPCS: 70450; 70486; 72125; 99284; A9270

== ENCOUNTER 2025-01-02 06:34 | Emergency (ER) | payer MEDICAID, SELFPAY ==
--- NOTE | ~2025-01-02 | CT_ITS ---
CT ANGIOGRAM NECK History: Screening evaluation. Technique: Serial spiral axial images through the neck were obtained during arterial phase IV injecti on of 100 cc of Omnipaque 350. 3-D postprocessing and MIP images were then reconstructed on the [employer] workstation. Dose reduction technique was used on this scan by utilizing automated exposure control and iterative reconstruction technique. The dose-length product (DLP) was 389.47 mGy-cm. Findings: Bilateral vertebral arteries are patent. Bilateral common carotid, internal carotid, exter nal carotid arteries are patent. No evidence for dissection. No stenosis or large vessel occlusion. N o aneurysm. The proximal right internal carotid artery demonstrates 0% stenosis relative to the belinda l distal artery lumen diameter. The proximal left internal carotid artery demonstrates 0% stenosis re lative to the normal distal artery lumen diameter. No soft tissue abnormality seen in the neck. No mass lesion or acute inflammatory process seen. No ly mphadenopathy. Lung apices are clear. Impression: Unremarkable exam. Reviewed, dictated and finalized at location . Impression: Unremarkable exam.
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
[2025-01-02 06:37] VITALS: BP 108/66; PULSE 92; RESP 16; TEMP 36.7; O2SAT 100
[2025-01-02 07:57] VITALS: BP 111/80; PULSE 79; RESP 14; O2SAT 100
[2025-01-02] MEDS: ACETAMINOPHEN 500 MG TABLET 1000 MG PO (08:31)
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
[2025-01-02 09:54] VITALS: PULSE 68; RESP 16; O2SAT 100
[2025-01-02 10:02] VITALS: BP 97/64; PULSE 79; RESP 17; O2SAT 99
== END 2025-01-02 10:03 | disposition home or self-care (01) ==
PROVIDERS: Emergency Provider Emergency Medicine
DX: S09.93XA Unspecified injury of face, initial encounter (principal); J45.909 Unspecified asthma, uncomplicated; K58.9 Irritable bowel syndrome, unspecified; F41.9 Anxiety disorder, unspecified; F31.9 Bipolar disorder, unspecified; F17.210 Nicotine dependence, cigarettes, uncomplicated; Z87.440 Personal history of urinary (tract) infections; Z87.442 Personal history of urinary calculi; Z79.899 Other long term (current) drug therapy; Y04.8XXA Assault by other bodily force, initial encounter; X99.8XXA Assault by other sharp object, initial encounter
CPT/HCPCS: 36415; 70450; 70486; 70498; 99284; A9270; L0140; Q9967

== ENCOUNTER 2025-06-28 11:01 | Emergency (ER) | payer SELFPAY ==
--- OUTSIDE RECORDS SUMMARY | 2024-12-16 08:20 | XMS_ITS ---
Author Organization [facility] Address [address] [place] [address] Phone [phone] Care Team Providers Care Plywood Stock Grader Name Role Phone Uma Chavez Primary Care Provider REASON FOR VISIT Labs-fasting Medications Medication SIG (Take, Route, Frequency, Duration) Notes Start Date End Date Diagnosis (ICD Code) Status Potassium 99 MG Tablet 1 tablet Orally Once a day Not-Taking Melatonin 5 MG Tablet 1 tablet at bedtime as needed Orally Once a day; Duration: 30 days 5 Routine general medical examination at a health care facility (ICD_10 - Z00.00) Active Nicotine 21 MG/24HR Patch 24 Hour 1 patch to skin. Transdermal Once a day, removing at bedtime; Duration: 28 days 5 Routine general medical examination at a health care facility (ICD_10 - Z00.00) Active hydrOXYzine HCl 25 MG Tablet 1-2 capsules Orally every 4 hours as needed for anxiety, agitation, or inability to sleep. Do not given within 4 hours of diphenhydramine; Duration: 5 days 5 Routine general medical examination at a health care facility (ICD_10 - Z00.00) Active Multi Vitamin - Tablet 1 tablet Orally Once a day; Duration: 30 days 5 Routine general medical examination at a health care facility (ICD_10 - Z00.00) Active Cetirizine HCl 10 MG Tablet 1 tablet Orally Once a day; Duration: 30 days 5 Seasonal allergies (ICD_10 - J30.2) Active Nicotine Polacrilex 4 MG Gum Chew 1 piece as needed for nicotine cravings Mouth/Throat up to every hour (max of 20 pieces per day); Duration: 7 days 5 Routine general medical examination at a health care facility (ICD_10 - Z00.00) Active Prazosin HCl 1 MG Capsule 1 capsule at bedtime Orally Once a day; Duration: 7 days pt on WRU, please deliver 5 PTSD (post-traumatic stress disorder) (ICD_10 - F43.10) Active QUEtiapine Fumarate 100 MG Tablet 1 tablet at bedtime Orally Once a day; Duration: 5 days pt on WRU, please deliver 5 Bipolar 1 disorder (ICD_10 - F31.9) Active Fluticasone Propionate 50 MCG/ACT Suspension 1 spray in each nostril Nasally daily; Duration: 30 days 5 Seasonal allergies (ICD_10 - J30.2) Active Lactulose 10 GM/15ML Solution 15 mL as needed Orally Once a day As needed for severe constipation 5 Constipation (ICD_10 - K59.00) Active Social History Sex Observation Social History Observation Description Sex Observation Female Sexual Orientation Social History Observation Description Sexual Orientation Straight or heterose xual Gender Identity Social History Observation Description Gender Identity Female Encounters Date Time Type Facility Location Provider Diagnosis 12/16/2024 08:20 AM Office Visit [address] [place] [address] Uma Chavez Plan Of Treatment No Information Medical (General) History Medical History History ICD Code attention deficit hyperactivity disorder Social Anxiety disorder PTSD Nightmares Surgical History Surgery Date(Month/Year) salpingectomy 2019 c section x2 tonsils removed Hospitalization History Reason Date(Month/Year) [facility] 05/2024 Progress Notes * Isabel QUINONES MDOB: [birth year] (34 yo F)Acc No.[id number]:12/16/2024 UNLOCKED PROGRESS NOTE Patient: Edmund Isabel DOWNING Provider: Alevrto Chavez, MSN, STILL OPERATOR WHISKEY, PMHNP-BC :1990 A ge:34 Y S ex:Female Date:12/16/2024 Phone: Address:[address] [place], [place] [id number] Check In:08:20 AM DISTILLERY WORKER Subjective: * Chief Complaints: * 1 . Labs-fasting. * Screening: * * Medical History: * Medications: T aking Prazosin HCl 1 MG Capsule 1 capsule at bedtime Orally Once a day , Notes to Pharmacist: pt on WRU, please deliver, Taking Nicotine Polacrilex 4 MG Gum Chew 1 piece as needed for nicotine cravings Mouth/Throat up to every hour (max of 20 pieces per day) , Taking Multi Vitamin - Tablet 1 tablet Orally Once a day , Taking hydrOXYzine HCl 25 MG Tablet 1-2 capsules Orally every 4 hours as needed for anxiety, agitation, or inability to sleep. Do not given within 4 hours of diphenhydramine , Taking Nicotine 21 MG/24HR Patch 24 Hour 1 patch to skin. Transdermal Once a day, removing at bedtime , Taking Melatonin 5 MG Tablet 1 tablet at bedtime as needed Orally Once a day , Taking Lactulose 10 GM/15ML Solution 15 mL as needed Orally Once a day As needed for severe constipation, Taking Cetirizine HCl 10 MG Tablet 1 tablet Orally Once a day , Taking Fluticasone Propionate 50 MCG/ACT Suspension 1 spray in each nostril Nasally daily , Taking QUEtiapine Fumarate 100 MG Tablet 1 tablet at bedtime Orally Once a day , Notes to Pharmacist: pt on WRU, please deliver, Not-Taking Potassium 99 MG Tablet 1 tablet Orally Once a day Objective: * Vitals: Assessment: Plan: * Treatment: * * Electronic signature of Adore Chavez on 06/28/2025 at 11:28 AM DISTILLERY WORKER Sign off status: Pending * Provider: Alverto Chavez, MSN, STILL OPERATOR WHISKEY, PMHNP-BC Date: 0 12/16/2024 Generated for Printing/Faxing/eTransmitting on: 1 08/29/2024 11:28 AM DISTILLERY WORKER
--- OUTSIDE RECORDS SUMMARY | 2024-12-29 08:40 | XMS_ITS ---
Author Organization [facility] Address [address] [place] [address] Phone [phone] Care Team Providers Care Pet Nutrition Specialist Name Role Phone Uma Chavez Primary Care Provider [phone] Jeni Crenshaw APRN [phone] REASON FOR VISIT 1 week f/u Social History Sex Observation Social History Observation Description Sex Observation Female Sexual Orientation Social History Observation Description Sexual Orientation Straight or heterose xual Gender Identity Social History Observation Description Gender Identity Female Encounters Date Time Type Facility Location Provider Diagnosis 12/29/2024 08:40 AM Office Visit [place] [address] [place] [address] Jeni Crenshaw Plan Of Treatment No Information Medical (General) History Medical History History ICD Code attention deficit hyperactivity disorder Social Anxiety disorder PTSD Nightmares Surgical History Surgery Date(Month/Year) salpingectomy 2019 c section x2 tonsils removed Hospitalization History Reason Date(Month/Year) [facility] 05/2024 Progress Notes * Isabel QUINONES MDOB: [birth year] (34 yo F)Acc No.[id number]:12/29/2024 UNLOCKED PROGRESS NOTE Progress Notes Patient: Edmund DOWNING Isabel Taj Provider: Dennis Crenshaw, MSN, ASSOCIATE MERCHANT, SUPERVISOR SHED WORKERS-BC, SUPERVISOR SHED WORKERS-C :1990 A ge:34 Y S ex:Female Date:12/29/2024 Phone: Address:[address] [place], [place] [phone] Pcp:Uma Chavez Subjective: * Chief Complaints: * 1 . 1 week f/u. * Screening: * * Medical History: Objective: * Vitals: Assessment: Plan: * Treatment: * * Electronic signature of Kenneth Crenshaw APRN, [id number] on 06/28/2025 at 11:29 AM SENIOR INFRASTRUCTURE ENGINEER Sign off status: Pending * Provider: Dennis Crenshaw, MSN, ASSOCIATE MERCHANT, SUPERVISOR SHED WORKERS-BC, SUPERVISOR SHED WORKERS-C Date: 0 12/29/2024 Generated for Printing/Faxing/eTransmitting on: 1 08/29/2024 11:29 AM SENIOR INFRASTRUCTURE ENGINEER
--- OUTSIDE RECORDS SUMMARY | 2025-01-10 11:00 | XMS_ITS ---
Author Organization [facility] Address [address] [place] [address] Phone [phone] Care Team Providers Care Clinical Education Assistant Name Role Phone Uma Chavez Primary Care Provider REASON FOR VISIT 2 Week F/U Medications Medication SIG (Take, Route, Frequency, Duration) Notes Start Date End Date Diagnosis (ICD Code) Status Fluticasone Propionate 50 MCG/ACT Suspension 1 spray in each nostril Nasally daily; Duration: 30 days 5 Seasonal allergies (ICD_10 - J30.2) Active Potassium 99 MG Tablet 1 tablet Orally Once a day Unknown Clindamycin HCl 300 MG Capsule 1 capsule Orally 3 times a day; Duration: 7 days 5 Dental infection (ICD_10 - K04.7) Active Chlorhexidine Gluconate 0.12 % Solution 15 mL swish for 30 seconds, then spit. Do not swallow. Mouth/Throat Twice a day; Duration: 30 days 5 Tooth abscess (ICD_10 - K04.7) Active Cetirizine HCl 10 MG Tablet 1 [...] health care facility (ICD_10 - Z00.00) Active Melatonin 5 MG Tablet 1 tablet at bedtime as needed Orally Once a day; Duration: 30 days 5 Routine general medical examination at a health care facility (ICD_10 - Z00.00) Active Lactulose 10 GM/15ML Solution 15 mL as needed Orally Once a day As needed for severe constipation 5 Constipation (ICD_10 - K59.00) Active Nicotine 21 MG/24HR Patch 24 Hour APPLY 1 PATCH TO SKIN DAILY (REMOVE AT BEDTIME); Duration: 28 Routine general medical examination at a health care facility (ICD_10 - Z00.00) Active Albuterol Sulfate HFA 108 (90 Base) MCG/ACT Aerosol Solution 1 puff as needed Inhalation every 4 hrs 5 Mild intermittent asthma without complication (ICD_10 - J45.20) Active QUEtiapine Fumarate 100 MG Tablet 1 tablet at bedtime Orally Once a day; Duration: 14 days pt on WRU, please deliver Bipolar 1 disorder (ICD_10 - F31.9) Active traZODone HCl 50 MG Tablet 1 tablet at bedtime as needed Orally Once a day; Duration: 14 days pt on unit, thanks 5 Insomnia (ICD_10 - G47.00) Active hydrOXYzine HCl 25 MG Tablet 1-2 capsules Orally every 4 hours as needed for anxiety, agitation, or inability to sleep. Do not given within 4 hours of diphenhydramine; Duration: 14 days pt on unit, thanks 5 YUDY (generalized anxiety disorder) (ICD_10 - F41.1) Active Atomoxetine HCl 40 MG Capsule 1 capsule in the morning Orally Once a day; Duration: 30 days pt on unit, thanks 5 ADHD (attention deficit hyperactivity disorder), combined type (ICD_10 - F90.2) Active Social History Sex Observation Social History Observation Description Sex Observation Female Sexual Orientation Social History Observation Description Sexual Orientation Straight or heterose xual Gender Identity Social History Observation Description Gender Identity Female Encounters Date Time Type Facility Location Provider Diagnosis 01/10/2025 11:00 AM Office Visit [facility] [address] [place] [address] Uma Chavez Plan Of Treatment No Information Medical (General) History Medical History History ICD Code attention deficit hyperactivity disorder Social Anxiety disorder PTSD Nightmares Surgical History Surgery Date(Month/Year) salpingectomy 2019 c section x2 tonsils removed Hospitalization History Reason Date(Month/Year) [facility] 05/2024 Progress Notes * Isabel QUINONES MDOB: [birth year] (34 yo F)Acc No.[id number]:01/10/2025 UNLOCKED PROGRESS NOTE Patient: Isabel MARQUEZ Provider: Alverto Chavez, MSN, PAPER AND PULP MILL OPERATOR, PMHNP-BC :1990 A ge:34 Y S ex:Female Date:01/10/2025 Phone: Address:[address] [place] [address] Subjective: * Chief Complaints: * 1 . 2 Week F/U. * Screening: * * Medical History: * Medications: T aking Nicotine Polacrilex 4 MG Gum Chew 1 piece as needed for nicotine cravings Mouth/Throat up to every hour (max of 20 pieces per day) , Taking Multi Vitamin - Tablet 1 tablet Orally Once a day , Taking Melatonin 5 MG Tablet 1 tablet at bedtime as needed Orally Once a day , Taking Lactulose 10 GM/15ML Solution 15 mL as needed Orally Once a day As needed for severe constipation, Taking Cetirizine HCl 10 MG Tablet 1 tablet Orally Once a day , Taking Fluticasone Propionate 50 MCG/ACT Suspension 1 spray in each nostril Nasally daily , Taking Clindamycin HCl 300 MG Capsule 1 capsule Orally 3 times a day , Taking Chlorhexidine Gluconate 0.12 % Solution 15 mL swish for 30 seconds, then spit. Do not swallow. Mouth/Throat Twice a day , Taking Albuterol Sulfate HFA 108 (90 Base) MCG/ACT Aerosol Solution 1 puff as needed Inhalation every 4 hrs , Taking QUEtiapine Fumarate 100 MG Tablet 1 tablet at bedtime Orally Once a day , Notes to Pharmacist: pt on WRU, please deliver, Taking traZODone HCl 50 MG Tablet 1 tablet at bedtime as needed Orally Once a day , Notes to Pharmacist: pt on unit, thanks, Taking hydrOXYzine HCl 25 MG Tablet 1-2 capsules Orally every 4 hours as needed for anxiety, agitation, or inability to sleep. Do not given within 4 hours of diphenhydramine , Notes to Pharmacist: pt on unit, thanks, Taking Atomoxetine HCl 40 MG Capsule 1 capsule in the morning Orally Once a day , Notes to Pharmacist: pt on unit, thanks, Taking Nicotine 21 MG/24HR Patch 24 Hour APPLY 1 PATCH TO SKIN DAILY (REMOVE AT BEDTIME) , Unknown Potassium 99 MG Tablet 1 tablet Orally Once a day Objective: * Vitals: Assessment: Plan: * Treatment: * * Electronic signature of Adore Chavez on 06/28/2025 at 11:29 AM WHEEL ALIGNMENT TECHNICIAN Sign off status: Pending * Provider: Alverto Chavez, MSN, PAPER AND PULP MILL OPERATOR, PMHNP- Date: 0 01/10/2025 Generated for Printing/Faxing/eTransmitting on: 08/29/2024 11:29 AM WHEEL ALIGNMENT TECHNICIAN
--- OUTSIDE RECORDS SUMMARY | 2025-05-19 15:40 | XMS_ITS ---
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 Name Role Phone Uma Chavez Primary Care Provider Hortencia Franco Unavailable [phone] REASON FOR VISIT transfer from [facility], last seen 12/27/24 Medications Medication SIG (Take, Route, Frequency, Duration) Notes Start Date End Date Diagnosis (ICD Code) Status Lactulose 10 GM/15ML Solution 15 mL as needed Orally Once a day As needed for severe constipation 5 Constipation (ICD_10 - K59.00) Active Cetirizine HCl 10 MG Tablet 1 tablet Orally Once a day; Duration: 30 days 5 Seasonal allergies (ICD_10 - J30.2) Active Fluticasone Propionate 50 MCG/ACT Suspension 1 spray in each nostril Nasally daily; Duration: 30 days 5 Seasonal allergies (ICD_10 - J30.2) Active Potassium 99 MG Tablet 1 tablet Orally Once a day Unknown Clindamycin HCl 300 MG Capsule 1 capsule Orally 3 times a day; Duration: 7 days 5 Dental infection (ICD_10 - K04.7) Active Nicotine Polacrilex 4 MG Gum Chew [...] health care facility (ICD_10 - Z00.00) Active Atomoxetine HCl 40 MG Capsule 1 capsule in the morning Orally Once a day; Duration: 30 days pt on unit, thanks 5 ADHD (attention deficit hyperactivity disorder), combined type (ICD_10 - F90.2) Active Nicotine 21 MG/24HR Patch 24 Hour APPLY 1 PATCH TO SKIN DAILY (REMOVE AT BEDTIME); Duration: 28 Routine general medical examination at a health care facility (ICD_10 - Z00.00) Active Daily-Ibrahima - Tablet TAKE 1 TABLET BY MOUTH DAILY; Duration: 30 Routine general medical examination at a health [...] (generalized anxiety disorder) (ICD_10 - F41.1) Active Chlorhexidine Gluconate 0.12 % Solution 15 mL swish for 30 seconds, then spit. Do not swallow. Mouth/Throat Twice a day; Duration: 30 days 5 Tooth abscess (ICD_10 - K04.7) Active Social History Sex Observation Social History Observation Description Sex Observation Female Sexual Orientation Social History Observation Description Sexual Orientation Straight or heterose xual Gender Identity Social History Observation Description Gender Identity Female Encounters Date Time Type Facility Location Provider Diagnosis 05/19/2025 03:40 PM Office Visit [address] [place] [address] Hortencia Franco Plan Of Treatment No Information Medical (General) History Medical History History ICD Code attention deficit hyperactivity disorder Social Anxiety disorder PTSD Nightmares Surgical History Surgery Date(Month/Year) salpingectomy 2019 c section x2 tonsils removed Hospitalization History Reason Date(Month/Year) [facility] 05/2024 Progress Notes * Isabel QUINONES MDOB: [birth year] (34 yo F)Acc No.[id number]:05/19/2025 UNLOCKED PROGRESS NOTE Patient: Isabel MARQUEZ Provider: Cassie Franco APN :1990 A ge:34 Y S ex:Female Date:05/19/2025 Phone: Address:[address] [place], [place] [id number] Pcp:Uma Chavez Subjective: * Chief Complaints: * 1 . transfer from [facility], last seen 12/27/24. * HPI: C SSRS Interpretation and Follow Up Plan: CSSRS Interpretation and Follow Up Plan C SSRS Screen documented using SF Y es, R isk Disposition from L ow - No Follow Up Plan Required, F ollow Up Plan N o Follow Up Plan required at this time., T imeframe of Screening T ross.? P reventative Health and Wellness follow-up: . * Screening: * * Medical History: * Medications: T aking Nicotine Polacrilex 4 MG Gum Chew 1 piece as needed for nicotine cravings Mouth/Throat up to every hour (max of 20 pieces per day) , Taking Melatonin 5 MG Tablet 1 [...] TO SKIN DAILY (REMOVE AT BEDTIME) , Taking Daily- Ibrahima - Tablet TAKE 1 TABLET BY MOUTH DAILY , Unknown Potassium 99 MG Tablet 1 tablet Orally Once a day Objective: * Vitals: Assessment: Plan: * Treatment: * Recommended Wellness and Pre vention Guidelines: * S tatus A lert L ast Done N ext Due A ction Taken N ONCOMPLIANT C ervical cancer screening - 1 07/19/2024 - - N ONCOMPLIANT I nfluenza vaccine (high risk) - 1 07/19/2024 - - * * Electronic signature of Kev Franco on 06/28/2025 at 11:29 AM PRESENTATION SPECIALIST Sign off status: Pending * Provider: Cassie Franco APN Date: 07/19/2024 Generated for William corley/Jamin/eTemanuel on: 08/29/2024 11:29 AM PRESENTATION SPECIALIST History and Physical Notes * HPI (History of Present Illness) Category c/o Denies Symptom Duration Details Notes Catego ry Notes Preventative Health and Wellness follow-up . CSSRS Interpretation and Follow Up Plan CSSRS Interpretation and Follow Up Plan CSSRS Screen documented using SF: Yes Risk Disposition from SF: Low - No Follo w Up Plan Required Follow Up Plan: No Follow Up Plan requir ed at this time. Timeframe of Screening: Today
[2025-06-28 11:03] VITALS: BP 110/67; PULSE 98; RESP 16; TEMP 36.7; O2SAT 99
--- OUTSIDE RECORDS SUMMARY | 2025-06-28 11:29 | XMS_ITS | Patient Health Record ---
Author Organization Formerly [facility], later [facility] Address [address] [place] [address] Phone [phone] Care Team Providers Care Alliances Consultant Name Role Phone Uma Chavez Primary Care Provider Asuncion Browne APRN Unavailable [phone] Jose Ashley Unavailable [phone] Eugenie AYALAWSnehal Unavailable [phone] Rubio Mcmahon APRN Unavailable [phone] Jeni Crenshaw APRN Unavailable [phone] Hortencia Franco Unavailable [phone] Allergies Allergen (clinical drug ingredient) Drug/Non Drug Allergy documented on EMR Reaction Allergy Type Onset Date Status amoxicillin Amoxicillin anaphylaxis Drug Allergy A ctive ciprofloxacin Cipro rash Drug Allergy Act rudy valproate Depakote hives Drug Allergy Active Results Component Value Reference Range Flag Notes Breathalyzer Order date: 12/03/2024 Reviewed date:12/07/2024 03:55:09 PM Interpretation: Performing Lab: Notes/Report: JOHN 0.000 Test, Urine Order date: 12/03/2024 Reviewed date:12/07/2024 03:55:03 PM Interpretation: Performing Lab: Notes/Report: Test, Urine neg Negative - Negative QuantiFERON-TB Gold Plus ([id number]) Order date: 12/03/2024 Reviewed date:12/07/2024 03:24:56 PM Interpretation:Negative Performing Lab:[facility], [address], Phone - [phone], [facility] Notes/Report: QuantiFERON Incubation Incubation performed. QuantiFERON-TB Gold Plus Negative Negative No response to M tuberculosis antigens detected. Infection with M tuberculosis is unlikely, but high risk individuals should be considered for additional testing (ATS/IDSA/CDC Clinical Practice Guidelines, 2017). The reference range is an Antigen minus Nil result of <0.35 IU/mL. Chemiluminescence immunoassay methodology QuantiFERON Criteria QuantiFERON-TB Gold Plus is a qualitative indirect test for M tuberculosis infection (including disease) and is intended for use in conjunction with risk assessment, radiography, and other medical and diagnostic evaluations. The QuantiFERON-TB Gold Plus result is determined by subtracting the Nil value from either TB antigen (Ag) value. The Mitogen tube serves as a control for the test. QuantiFERON TB1 Ag Value 0.00 QuantiFERON TB2 Ag Value 0.02 QuantiFERON Nil Value 0.05 QuantiFERON Mitogen Value >10.00 12 Panel Urine Drug Screen Order date: 12/03/2024 Reviewed date:12/03/2024 04:54:04 PM Interpretation: Performing Lab: Notes/Report: THC pos ADRIAN neg MOP (OPI) neg AMP neg MET pos BAR neg BZO neg MDMA neg MTD neg OXY neg PCP neg BUP neg HIV Screen *HIV 1, 2 Ab, p24 Ag ([id number]) Order date: 12/03/2024 Reviewed date:12/07/2024 03:24:56 PM Interpretation:Negative [facility]forming [facility], [address], Phone - [phone], [facility]Report: HIV Ab/p24 Ag Screen Non Reactive Non Reactive HIV-1/HIV-2 antibodies and HIV-1 p24 antigen were NOT detected. There is no laboratory evidence of HIV infection. HIV Negative CMP 14 Comprehensive Metabol ic Panel* Order date: 12/03/2024 Reviewed date:12/07/2024 03:24:56 PM Interpretation: Performing Lab:[facility], [address], Phone - [phone], [facility] Notes/Report: Glucose 82 70-99 mg/dL BUN 13 6-20 mg/dL Creatinine 0.53 0.57-1.00 mg/dL L eGFR 124 >59 mL/min/1.73 BUN/Creatinine Ratio 25 9-23 H Sodium 138 134-144 mmol/L Potassium 3.9 3.5-5.2 mmol/L Chloride 99 96-106 mmol/L Carbon Dioxide, Total 22 20-29 mmol/L Calcium 9.5 8.7-10.2 mg/dL Protein, Total 7.3 6.0-8.5 g/dL Albumin 4.6 3.9-4.9 g/dL Globulin, Total 2.7 1.5-4.5 g/dL Bilirubin, Total 0.4 0.0-1.2 mg/dL Alkaline Phosphatase 73 44-121 IU/L AST (SGOT) 14 0-40 IU/L ALT (SGPT) 19 0-32 IU/L CBC With Differential/Platel et* Order date: 12/03/2024 Reviewed date:12/07/2024 03:24:56 PM Interpretation:Normal Performing Lab:[facility] [place], [address], Phone - [phone], Director - Yaya Notes/Report: WBC 7.1 3.4-10.8 x10E3/uL RBC 4.47 3.77-5.28 x10E6/uL Hemoglobin 14.0 11.1-15.9 g/dL Hematocrit 43.6 34.0-46.6 % MCV 98 79-97 fL H MCH 31.3 26.6-33.0 pg MCHC 32.1 31.5-35.7 g/dL RDW 12.4 11.7-15.4 % Platelets 357 150-450 x10E3/uL Neutrophils 61 Not Estab. % Lymphs 31 Not Estab. % Monocytes 7 Not Estab. % Eos 1 Not Estab. % Basos 0 Not Estab. % Neutrophils (Absolute) 4.4 1.4-7.0 x10E3/uL Lymphs (Absolute) 2.2 0.7-3.1 x10E3/uL Monocytes(Absolute) 0.5 0.1-0.9 x10E3/uL Eos (Absolute) 0.0 0.0-0.4 x10E3/uL Baso (Absolute) 0.0 0.0-0.2 x10E3/uL Immature Granulocytes 0 Not Estab. % Immature Grans (Abs) 0.0 0.0-0.1 x10E3/uL Androstenedione LCMS Order date: 12/15/2024 Reviewed date:12/29/2024 03:58:42 PM Interpretation: Performing Lab:[address], Phone - [phone], Director - [facility] Notes/Report: Test(s) 656535-Zwkjyjqihmrvbmz LCMS; [id number]-XE Progesterone LCMS was developed and its performance characteristics determined by [employer]. It has not been cleared or approved by the Food and Drug Administration. Androstenedione LCMS 209 41-262 ng/dL Dehydroepiandrosterone (DHEA ) Sulfate Order date: 12/15/2024 Reviewed date:12/29/2024 03:58:42 PM Interpretation: Performing Lab:[address], Phone - [phone], Director - [facility] Notes/Report: Test(s) 974254-Wscfipovqjclroe LCMS; 876977-11-PJ Progesterone LCMS was developed and its performance characteristics determined by [employer]. It has not been cleared or approved by the Food and Drug Administration. DHEA-Sulfate 157.0 84.8-378.0 ug/dL Testosterone,Free and Total Order date: 12/15/2024 Reviewed date:12/29/2024 03:58:42 PM Interpretation: Performing Lab:[address], Phone - [phone], Director - [facility] Notes/Report: Test(s) 589322-Wsnhoukrvndzqdv LCMS; 521205-41-UG Progesterone LCMS was developed and its performance characteristics determined by [employer]. It has not been cleared or approved by the Food and Drug Administration. Testosterone 28 8-60 ng/dL Free Testosterone(Direct) 2.1 0.0-4.2 pg/mL Prolactin Order date: 12/15/2024 Reviewed date:12/29/2024 03:58:42 PM Interpretation: Performing Lab:[address], Phone - [phone], Director - [facility] Notes/Report: Test(s) 687517-Mjndzdiltasbpjg LCMS; 214454-57-GE Progesterone LCMS was developed and its performance characteristics determined by [facility]. It has not been cleared or approved by the Food and Drug Administration. Prolactin 16.7 4.8-33.4 ng/mL 17-OH Progesterone LCMS Order date: 12/15/2024 Reviewed date:12/29/2024 03:58:42 PM Interpretation: Performing Lab:[facility] [address], Phone - [phone], Director - [facility] Notes/Report: Test(s) 189836-Zjpdexjgcgumdlu LCMS; 213168-68-OM Progesterone LCMS was developed and its performance characteristics determined by [facility]. It has not been cleared or approved by the Food and Drug Administration. 17-OH Progesterone LCMS 271 Adult Female Follicular 15 - 70 Luteal 35 - 290 TSH+Free T4* Order date: 12/15/2024 Reviewed date:12/29/2024 03:58:42 PM Interpretation: Performing Lab:[facility] [address], Phone - [phone], Director - [facility] Notes/Report: Test(s) 103218-Npjnimelyvdewaf LCMS; 858604-73-EJ Progesterone LCMS was developed and its performance characteristics determined by [facility]. It has not been cleared or approved by the Food and Drug Administration. TSH 2.210 0.450-4.500 uIU/mL T4,Free(Direct) 0.97 0.82-1.77 ng/dL Hemoglobin A1c* Order date: 12/15/2024 Reviewed date:12/29/2024 03:58:42 PM Interpretation: Performing Lab:[facility] [address], Phone - [phone], Director - [facility] Notes/Report: Test(s) 352951-Gjeoteizsvsltbf LCMS; 134362-49-GS Progesterone LCMS was developed and its performance characteristics determined by [facility]. It has not been cleared or approved by the Food and Drug Administration. Hemoglobin A1c 5.0 4.8-5.6 % . Prediabetes: 5.7 - 6.4 Diabetes: >6.4 Glycemic control for adults with diabetes: <7.0 Lipid Panel* Order date: 12/15/2024 Reviewed date:12/29/2024 03:58:43 PM Interpretation: Performing Lab:[facility] [place], [address] [facility], [place], Phone - [phone], Director - Yaya Notes/Report: Test(s) 686181-Svobfxlsvjhyucv LCMS; 359122-50-BF Progesterone LCMS was developed and its performance characteristics determined by [employer]. It has not been cleared or approved by the Food and Drug Administration. Cholesterol, Total 116 100-199 mg/dL Triglycerides 43 0-149 mg/dL HDL Cholesterol 62 >39 mg/dL VLDL Cholesterol Radu 11 5-40 mg/dL LDL Chol Calc (NIH) 43 0-99 mg/dL Reason For Referral No Information Medications Medication SIG (Take, Route, Frequency, Duration) Notes Start Date End Date Diagnosis (ICD Code) Status Fluticasone Propionate 50 MCG/ACT Suspension 1 spray in each nostril Nasally daily; Duration: 30 days 5 Seasonal allergies (ICD_10 - J30.2) Active Clindamycin HCl 300 MG Capsule 1 capsule Orally 3 times a day; Duration: 7 days 5 Dental infection (ICD_10 - K04.7) Active Albuterol Sulfate HFA 108 (90 Base) MCG/ACT Aerosol Solution 1 puff as needed Inhalation every 4 hrs 5 Mild intermittent asthma without complication (ICD_10 - J45.20) Active Daily-Ibrahima - Tablet TAKE 1 TABLET BY MOUTH DAILY; Duration: 30 days Routine general medical examination at a health care facility (ICD_10 - Z00.00) Active Lactulose 10 GM/15ML Solution 15 mL as needed Orally Once a day As needed for severe constipation 5 Constipation (ICD_10 - K59.00) Active Chlorhexidine Gluconate 0.12 % Solution 15 mL swish for 30 seconds, then spit. Do not swallow. Mouth/Throat Twice a day; Duration: 30 days 5 Tooth abscess (ICD_10 - K04.7) Not-Taking Cetirizine HCl 10 MG Tablet 1 tablet Orally Once a day; Duration: 30 days 5 Seasonal allergies (ICD_10 - J30.2) Active Potassium 99 MG Tablet 1 tablet Orally Once a day Unknown hydrOXYzine HCl 25 MG Tablet 1 capsule Orally twice a day; Duration: 30 days As needed YUDY (generalized anxiety disorder) (ICD_10 - F41.1) Active Nicotine Polacrilex 4 MG Gum Chew 1 piece as needed for nicotine cravings Mouth/Throat up to every hour (max of 20 pieces per day); Duration: 7 days 5 Routine general medical examination at a health care facility (ICD_10 - Z00.00) Active traZODone HCl 50 MG Tablet 1 tablet at bedtime as needed Orally Once a day 5 Insomnia (ICD_10 - G47.00) Not-Taking Atomoxetine HCl 40 MG Capsule 1 capsule in the morning Orally Once a day; Duration: 30 days ADHD (attention deficit hyperactivity disorder), combined type (ICD_10 - F90.2) Active Melatonin 5 MG Tablet 1 tablet at bedtime as needed Orally Once a day; Duration: 30 days 5 Routine general medical examination at a health care facility (ICD_10 - Z00.00) Active QUEtiapine Fumarate 50 MG Tablet 1-2 tablet at bedtime Orally Once a day; Duration: 30 days Bipolar 1 disorder (ICD_10 - F31.9) Active Nicotine 21 MG/24HR Patch 24 Hour APPLY 1 PATCH TO SKIN DAILY (REMOVE AT BEDTIME); Duration: 28 Routine general medical examination at a health care facility (ICD_10 - Z00.00) Active Social History Sex Observation Social History Observation Description Sex Observation Female Sexual Orientation Social History Observation Description Sexual Orientation Straight or heterose xual Gender Identity Social History Observation Description Gender Identity Female SDOH Assessments Date Tool Assessment Assessment LOINC Value Assessment Notes Goals Interventions General Notes 2024 PRAPAR E (LOINC : 42616- 5) Total Score: 18 Date Completed/Up dated: 12/04/19 25 Reviewed [place] What is your current housing situation? 44799-1 I do not have housing (staying with others, in a hotel, in a fpc, living outside on the street, on a beach, or in a park) (EH32334-2) Are you worried about losing your housing? 84512-4 Yes (LA33-6) What is the highest level of school that you have finished? 39080-2 Less than a high school degree (MD00787-7) What is your current work situation? 44636-3 Unemployed and seeking work (LA53905-5) In the past year, have you o r any family members you live with been unable to get any of the following when it was really needed? Check all that apply 83472-8 Utilities (VN82020-3) intensive care specialist (KQ68335-2) Medicine or any health care (medical, dental, mental health or vision) (CE50772-1) Clothing (YN02661-0) Food (QE44983-9) Has lack of transportation k ept you from medical appointments, meetings, work or from getting things needed for daily living? 00295-9 Yes, it has kept me from medical appointments or from getting my medications (BL06201-2) How often do you see or talk to people that you care about and feel close to? (For example: talking to friends on the phone, visiting friends or family, going to synagogue or club meetings) 44513-9 1 or 2 times a week (BK92818-7) How stressed are you? Stress is when someone feels tense, nervous, anxious, or can\t sleep at night because their mind is troubled 39123-0 Very much (AH46834-7) In the past year have you sp ent more than 2 nights in a row in a nursing home, fci, senior living center, or juvenile correctional facility? 75862-3 No (LA32-8) Do you feel physically and emotionally safe where you currently live? 04316-5 No (LA32-8) In the past year, have you b een afraid of your partner or ex-partner? 92627-6 Yes (LA33-6) Are you a refugee? No What country are you from? [place] PRAPARE Score: 18 Social History Primary Social History Social Info Question Answer Notes Living Arrangement Living Arrangement: Dependent Karan wallis Living with: Child Tobacco Use - do not use Tobacco Use: Former Employment Status Employment Status: Unemployed Alcohol Use Alcohol Use Frequency: Monthly or less Section Notes: Reviewed [place] Problems Problem Type SNOMED Code ICD Code Dates Problem Status W/U Status Risk Notes Problem Insomnia disorder related to another mental disorder (99226061) Insomnia 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) Added On:09/07 Active confirmed Problem Mental disorder (73876055) Mental disorder, not otherwise specified (F99) Added On:09/07 Onset Date: 09/08/19 21 Active confirmed Problem Insomnia (969425234) Insomnia (G47.00) Added On:12/13 Active confirmed Problem Attention deficit hyperactivity disorder (794200530) ADHD (attention deficit hyperactivity disorder), combined type (F90.2) Added On:12/27 Active confirmed Problem Posttraumatic stress disorder (16156437) PTSD (post-traumatic stress disorder) (F43.10) Added On:10/17 Active confirmed Problem Anxiety (01444354) Anxiety (F41.9) Added On:09/07 Onset Date: 09/08/19 21 Active confirmed Problem Bipolar 1 disorder (869245461) Bipolar 1 disorder (F31.9) Added On:03/20 Onset Date: 03/20/20 17 Active confirmed Problem Social anxiety disorder (05538829) Social anxiety disorder (F40.10) Added On:01/08 Onset Date: 01/09/20 16 Active confirmed Problem Generalized anxiety disorder (26286980) YUDY (generalized anxiety disorder) (F41.1) Added On:12/13 Active confirmed Problem Constipation (11170267) Constipation (K59.00) Added On:12/15 Active confirmed Problem Seasonal allergy (030672479) Seasonal allergies (J30.2) Added On:12/15 Active confirmed Problem Nightmares (505815354) Nightmares (F51.5) Added On:09/17 Onset Date: 07/08/19 24 Active confirmed Problem Grief (829476353) Grief (F43.20) Added On:11/27 Active confirmed Problem Mild intermittent asthma (108796536) Mild intermittent asthma without complication (J45.20) Added On:09/07 Active confirmed Problem Tobacco user (694719072) Nicotine dependence with current use (F17.200) Added On:12/03 Active confirmed Vital Signs Vital Sign Value Notes Appt Date Heart Rate 80 /min 12/24/2024 Temperature 98.5 degrees Fahrenheit 12/06 Respiratory Rate 16 /min 12/24/2024 Blood pressure diastolic 64 mm Hg Oximetry 99 % 12/24/2024 Height 64 in 12/24/2024 Blood pressure systolic 108 mm Hg 12/06 Weight 142.2 lbs 12/24/2024 BMI 24.41 kg/m2 12/24/2024 Encounters Date Time Type Facility Location Provider Diagnosis 12/17/19 08:20 AM Office Visit [facility] [address] [place] [address] Uma Chavez 12/04/19 02:20 PM Office Visit, Est Pt., Level 4 (32469) [facility] [address] [place] [address] Asuncion Browne Routine general medical examination at a health care facility Z00.00 and Nicotine dependence with current use F17.200 12/04/19 03:00 PM Office Visit [facility] [address] [place] [address] Snehal Traore Post-traumatic stress disorder, unspecified F43.10 12/14/19 01:00 PM Telehealth Office Visit, New Pt., Level 4 (28853) [address] [address] Uma Chavez Bipolar 1 disorder F31.9 ; PTSD (post-traumatic stress disorder) F43.10 ; YUDY (generalized anxiety disorder) F41.1 ; Insomnia G47.00 ; Therapeutic drug monitoring Z51.81 and Substance use disorder F19.90 12/16/19 25 02:20 PM Office Visit, Est Pt., Level 4 (11459) [facility] [address] [place] [address] Jeni Crenshaw Nicotine dependence with current use F17.200 ; Adult general medical exam Z00.00 ; Screening for thyroid disorder Z13.29 ; Constipation K59.00 ; Hirsutism L68.0 and Seasonal allergies J30.2 12/21/19 25 10:00 AM Telehealth Office Visit, Est Pt., Level 3 (63215) [address] [address] Uma Kathy PTSD (post-traumatic stress disorder) F43.10 ; Bipolar 1 disorder F31.9 ; YUDY (generalized anxiety disorder) F41.1 ; Insomnia G47.00 and Substance use disorder F19.90 12/23/19 25 11:40 AM Office Visit, Est Pt., Level 3 (25093) [facility] [address] [place] [address] Jeni Kokristian Tooth abscess K04.7 ; Seasonal allergies J30.2 and Mild intermittent asthma without complication J45.20 12/25/19 25 11:00 AM Office Visit, Est Pt., Level 3 (22017) [facility] [address] [place] [address] Jose Ashley Dental infection K04.7 ; Allergic reaction T78.40XA ; Tooth abscess K04.7 and Mild intermittent asthma without complication J45.20 12/28/19 25 09:20 AM Telehealth Office Visit, Est Pt., Level 3 (04465) [address] [address] Uma Kathy PTSD (post-traumatic stress disorder) F43.10 ; Bipolar 1 disorder F31.9 ; YUDY (generalized anxiety disorder) F41.1 ; Insomnia G47.00 ; Substance use disorder F19.90 and ADHD (attention deficit hyperactivity disorder), combined type F90.2 06/01/20 25 02:40 PM Telehealth Office Visit, Est Pt., Level 3 (66392) [address] [address] Uma Kathy PTSD (post-traumatic stress disorder) F43.10 ; Bipolar 1 disorder F31.9 ; YUDY (generalized anxiety disorder) F41.1 ; Insomnia G47.00 ; ADHD (attention deficit hyperactivity disorder), combined type F90.2 and Routine general medical examination at a health care facility Z00.00 07/29/19 25 04:16 PM Telephone Encounter [address] [address] Rubio Mcmahon 12/16/19 02:49 PM Telephone Encounter [address] [address] Uma Chavez Bipolar 1 disorder F31.9 12/25/19 09:54 AM Telephone Encounter [address] [address] Jeni Crenshaw 12/30/19 04:11 PM Telephone Encounter [facility] [address] [place] [address] Asuncion Browne 05/19/20 03:02 PM Telephone Encounter [address] [address] Hortencia Franco 05/26/20 01:04 PM Telephone Encounter [address] [address] Uma Chavez Bipolar 1 disorder F31.9 ; YUDY (generalized anxiety disorder) F41.1 ; Insomnia G47.00 and ADHD (attention deficit hyperactivity disorder), combined type F90.2 Assessments Encounter Date Diagnosis (ICD Code) Assessment Notes Treatment Notes Section Notes 12/24/2024 Dental infection (ICD-10 - K04.7) 12/24/2024 Allergic reaction (ICD-10 - T78.40XA) 12/22/2024 Tooth abscess (ICD-10 - K04.7) 12/15/2024 Adult general medical exam (ICD-10 - Z00.00) 12/03/2024 Nicotine dependence with current use (ICD-10 - F17.200) 12/15/2024 Nicotine dependence with current use (ICD-10 - F17.200) 12/03/2024 Post-traumatic stress disorder, unspecified (ICD-10 - F43.10) 12/13/2024 PTSD (post-traumatic stress disorder) (ICD-10 - F43.10) Begin Prazosin - take as prescribed. Reviewed purpose (to reduce PTSD symptoms such a nightmares or flashbacks), benefits, and risks - including low blood pressure and serious interaction with medications used to treat erectile dysfunction. Omit taking if you are lightheaded or dizzy. If these symptoms persist, call our office. Call for problems with medication, side effects or need for dosage change. 12/20/2024 PTSD (post-traumatic stress disorder) (ICD-10 - F43.10) 12/27/2024 PTSD (post-traumatic stress disorder) (ICD-10 - F43.10) 06/01/2025 PTSD (post-traumatic stress disorder) (ICD-10 - F43.10) 12/15/2024 Bipolar 1 disorder (ICD-10 - F31.9) 12/13/2024 Bipolar 1 disorder (ICD-10 - F31.9) Start Quetiapine. Take as prescribed. Reviewed purpose (mood stability), benefits, and risks - low blood pressure, metabolic syndrome with high cholesterol or high blood sugars, change in cardiac conduction, nausea, vomiting, temporary or permanent movement disorders, and akathisia. Explained that no medication can be guaranteed to be 100% safe for baby or mother. Call for problems with medication, side effects or need for dosage change. 05/26/2025 Bipolar 1 disorder (ICD-10 - F31.9) 12/03/2024 Routine general medical examination at a health care facility (ICD-10 - Z00.00) SUPR Programs: Based on an evaluation of [facility] Patient Placement Criteria, a recommendation for placement in Level III treatment is indicated and approved. Confirmation of diagnosis is documented in the initial treatment plan.Admit to the Mental Health/Crisis Residential Unit and initiate standing/protocol orders: The following PRN medications may be self-administered by patients under the supervision of approved staff or administered by nursing staff: Ibuprofen 200mg, 2-4 tablets by mouth (with food) every 6 hours as needed for pain (unless on lithium). (NOTE: Ibuprofen and acetaminophen may be given together, but alternating is recommended for continuous pain relief. Guaifenesin 400 mg, 1 tablet by mouth every four hours as needed for cough and chest congestion (take with large glass of water). Loratadine 10 mg, 1 tablet by mouth daily as needed for allergies, watery itchy eyes, or sinus drainage. Throat Lozenges, up to 4 tablets by mouth every three to four hours as needed for sore throat. Antacid tablets, 1-2 tablets by mouth every one to two hours as needed for indigestion or heart burn. If the client prefers liquid, could use: Liquid Antacid : 1 ounce by mouth up to four times daily as needed for indigestion or heartburn Omeprazole 20mg, 1 capsule by mouth once daily for 14 days for frequent heartburn (frequent heartburn is more than 2 episodes per week). Do not exceed 14 days. Do not give to client already taking a proton-pump inhibitor: esomeprazole (Nexium), lansoprazole (Prevacid), pantoprazole (Protonix), rabeprazole (Aciphex), dexlansoprazole (Dexilant) Zofran ODT disintegrating (under the tongue) 4 mg, 1-2 tablets every 8 hours as needed for nausea/vomiting. Milk of Magnesia (MOM): 1 ounce (30 milliliters) by mouth every day as needed for constipation. OR Miralax: Stir and fully dissolve 17 grams (1 packet or 1 capful to measured line) in any 4 to 8 ounces of beverage then drink once daily for constipation. Do not use for more than 7 days. OR Docusate 100 mg, 1 capsule twice daily as needed for constipation Hydrocortisone 1% Cream, apply topically (to the skin) to the affected area up to three times daily as needed for itching or inflammation (avoid eyes and genitals). 2% Antifungal Cream, apply topically (to the skin) as directed as needed to affected areas for athlete's foot or jock itch. Triple Antibiotic Ointment, apply topically (to the skin) up to three times daily as needed for minor cuts and scrapes. Carmex or Chapstick, apply topically (to the skin) as needed for chapped lips and skin. Orajel, apply to affected areas as needed for mouth or tooth pain. Lubricating Eye Drops, instill 1-2 drops to the affected eye(s) as needed for dry/irritated eye(s). Hemorrhoid medications, apply to affected area according to directions as needed for hemorrhoid discomfort and itch. Nix (Permethrin 1%) cream 2 ounces, apply topically (to the skin) as directed as needed for head lice. Sunscreen 30 SPF, Apply to exposed skin prior to exposure to sun. The following PRN medications must be approved by nursing staff before self-administration by patients: Diphenhydramine 25 mg, 2 tablets by mouth every 4 hours as needed for allergic reaction or itchy rash. Caution: Do not use hydroxyzine within 4 hours of diphenhydramine and vice versa. Loperamide 2 mg capsules, may give two capsules by mouth for the initial dose, followed by one capsule up to 3 times a day as needed for diarrhea. Acetaminophen 500 mg, 1 - 2 tablets by mouth every six hours as needed for pain. (NOTE: Ibuprofen and acetaminophen may be given together, but alternating is recommended for continuous pain relief). Oxygen-May administer oxygen 2L/min via nasal cannula if O2 saturation is less than 92%, AND client complains of shortness of breath. Target O2 saturation is 94-98%. Caution: Remember too much oxygen can be detrimental to a client with COPD. Oxygen is a drug and should be delivered by trained staff only. Nurses may remove superficial splinters and sutures from skin lacerations. May apply gauze or bandages to any weeping wounds. Contact nursing if there is pus, a foul odor, increased pain/redness/swelling, or if soaking through bandages. 12/13/2024 YUDY (generalized anxiety disorder) (ICD-10 - F41.1) 12/15/2024 Screening for thyroid disorder (ICD-10 - Z13.29) 12/27/2024 YUDY (generalized anxiety disorder) (ICD-10 - F41.1) 05/26/2025 YUDY (generalized anxiety disorder) (ICD-10 - F41.1) 06/01/2025 Bipolar 1 disorder (ICD-10 - F31.9) Restart Quetiapine. Take as prescribed. Reviewed purpose (mood stability), benefits, and risks - low blood pressure, metabolic syndrome with high cholesterol or high blood sugars, change in cardiac conduction, nausea, vomiting, temporary or permanent movement disorders, and akathisia. For females: explained that no medication can be guaranteed to be 100% safe for baby or mother. Call for problems with medication, side effects or need for dosage change. 12/20/2024 Bipolar 1 disorder (ICD-10 - F31.9) 12/27/2024 Bipolar 1 disorder (ICD-10 - F31.9) 12/22/2024 Mild intermittent asthma without complication (ICD-10 - J45.20) 12/24/2024 Tooth abscess (ICD-10 - K04.7) 12/22/2024 Seasonal allergies (ICD-10 - J30.2) 12/24/2024 Mild intermittent asthma without complication (ICD-10 - J45.20) 12/27/2024 Insomnia (ICD-10 - G47.00) Begin trazodone. Reviewed purpose (help with sleep), benefits, and risks - including increased thoughts or suicidality, inducing edwige, and/or male priapism. Call for problems with medication, side effects or need for dosage change. 05/26/2025 Insomnia (ICD-10 - G47.00) 12/13/2024 Insomnia (ICD-10 - G47.00) 06/01/2025 YUDY (generalized anxiety disorder) (ICD-10 - F41.1) Restart hydroxyzine. Take as prescribed. Reviewed purpose (reduce anxiety and/or promote sleep), benefits, and risks - including sedation and dry mouth. Call for problems with medication, side effects or need for dosage change. 12/15/2024 Constipation (ICD-10 - K59.00) 12/20/2024 YUDY (generalized anxiety disorder) (ICD-10 - F41.1) 12/27/2024 Substance use disorder (ICD-10 - F19.90) 12/20/2024 Insomnia (ICD-10 - G47.00) 12/15/2024 Hirsutism (ICD-10 - L68.0) 06/01/2025 Insomnia (ICD-10 - G47.00) 05/26/2025 ADHD (attention deficit hyperactivity disorder), combined type (ICD-10 - F90.2) 12/13/2024 Therapeutic drug monitoring (ICD-10 - Z51.81) 12/15/2024 Seasonal allergies (ICD-10 - J30.2) 06/01/2025 ADHD (attention deficit hyperactivity disorder), combined type (ICD-10 - F90.2) Restart atomoxetine. Take as prescribed. Reviewed purpose (improve attention and focus), benefits, and risks including gi upset, constipation, nausea, insomnia or sedation, high heart rate, high blood pressure, increased anxiety, edwige/hypomania, sexual dysfunction, and priapism (an erection lasting longer than 4 hours, a medical emergency, go to ED if this occurs). Call for problems with medication, side effects or need for dosage change. 12/27/2024 ADHD (attention deficit hyperactivity disorder), combined type (ICD-10 - F90.2) 12/13/2024 Substance use disorder (ICD-10 - F19.90) 12/20/2024 Substance use disorder (ICD-10 - F19.90) 06/01/2025 Routine general medical examination at a health care facility (ICD-10 - Z00.00) 12/03/2024 Other Clinician met w ith client to assess needs for residential services. Clinician gathered information regarding historical presentation of mental health and substance use symptoms including withdrawal, HIV Risk assessment, psychiatric hospitalization history and presenting concern. Clinician conducted PHQ9 and CSSRS assessments as well as social drivers of health screening for the purposes of identifying additional service needs. 12/13/2024 Other May self-administer medications or be administered own oral medications per [facility] protocols. Provided informed consent with understanding of side effects, adverse effects, risks and benefits as well as alternative treatments as previously discussed and with the above recommended medications & other aspects of the treatment program. Agrees to return sooner if symptoms worsen or suicidal or homicidal ideations occur. Medication Hx: -Trazodone -Lamotrigine -Seroquel (pt states this worked well) -Hydroxyzine -Prazosin -Clonidine -Invega 6 mg -Buspar -Zoloft -Wellbutrin -Geodon Plan: -Continue Hydroxyzine 25 mg 1-2 capsules every 4 hours -Continue Melatonin QHS PRN -Start Quetiapine 50 mg QHS -Start Prazosin 1 mg QHS *ordered A1C & LP *pt needs to be seen in person by 12/2025 -Follow up: 1 week [] Hard Rx handed to patient [] Rx phoned into pharmacy [x] Rx faxed/e-prescribed into pharmacy [x] PDMP Reviewed [] [facility] Reviewed Encouraged by Uma Chavez PMHNP-BC to: [] consider utilizing therapist/counselor/so cial worker/psychologist, referral given [x] continue with therapist/counselor/so cial worker/psychologist Psychoeducation: -Treatment options discussed in detail with patient/guardian verbalizing understanding of treatment rationales. -Side effects and benefits of all medications prescribed discussed at length between psychiatric prescribing provider and patient/guardian along with the risks associated of atpg-as-bxmj interactions, including but not limited to prescription medications, OTC medications, vitamins, minerals and herbal supplements. -Patient/Guardian and provider dialogue showcased verbalized understanding from patient on rationales of medication risk vs benefits. -Information with neurobiology of presenting neurotransmitter disorder, mood stability, sleep hygiene and 7-8 hours of uninterrupted sleep per night with wakeful and refreshed awakening and day long alertness discussed. -Reduction of stress and anxiety to aid in focus and concentration discussed, again, with patient/guardian physically nodding, voicing understanding, and engaged in treatment plan with Uma Chavez [facility]. -Perceiving complete understanding of rationale by patient/guardian and willingness to adhere to formulated plan of care by prescriber with patient/guardian buy-in, willingness to participate actively in plan of care and willing to take charge of own care. -Although geared for female patients, all patients/guardians are informed by prescribing provider of risks of medications that could potentially be taken by female/women within their [place] of influence and that women who use medicine during have a higher chance of having a baby with defects. -Patient/Guardian denies being and/or knowing of women who are at present and denies wanting to become in the foreseeable future, 0-6 months from now. -Patient/Guardian again informed of the risk of pharmaceutical medications consumed during and how there are potential negative effects on the developing fetus. -Patient/Guardian verbalizes understanding of rationale and physically nods head in agreement that if a should occur, to consult with provider, INTAKE CLINICIAN and/or Nurse Grain Grader to determine if prescribed medications should or should not be continued. -Instructions regarding both the medical/pharmacologica l and non-pharmacologic aspects of the treatments employed were given, and the patient/guardian seemed to understand this. Risks and benefits of treatment, and of non-treatment, were also discussed. The patient/guardian understands the more frequent side effects associated with the medications. -The use of psychotherapy was addressed today and will continue on an as needed basis for the foreseeable future. The choice is, of course, ultimately left to the patient/guardian. -Patient/Guardian was encouraged to make a follow-up appointment for the next visit. -Additional treatment was discussed and has been addressed on an ongoing basis within the context of this patient's illness, resources, progress, and other appropriate factors. Being compliant with a regular exercise routine, consistent medication use, ongoing psychotherapy, eating and sleeping well, as well as the importance of handling stress, was discussed. 12/27/2024 Other May self-administer medications or be administered own oral medications per [facility] protocols. Provided informed consent with understanding of side effects, adverse effects, risks and benefits as well as alternative treatments as previously discussed and with the above recommended medications & other aspects of the treatment program. Agrees to return sooner if symptoms worsen or suicidal or homicidal ideations occur. Medication Hx: -Trazodone -Lamotrigine -Seroquel (pt states this worked well) -Hydroxyzine -Prazosin (made nightmares worse) -Clonidine (not helpful) -Invega 6 mg -Buspar -Zoloft -Wellbutrin (not helpful) -Geodon Plan: -Continue Hydroxyzine 25 mg 1-2 capsules every 4 hours -Continue Quetiapine 100 mg QHS -Start Trazodone 50 mg QHS -Stop Prazosin 2 mg QHS -Start Atomoxetine 40 mg once daily *labs pending *pt needs to be seen in person by 12/2025 -Follow up: 2 weeks [] Hard Rx handed to patient [] Rx phoned into pharmacy [x] Rx faxed/e-prescribed into pharmacy [] PDMP Reviewed [] [facility] Reviewed Encouraged by Uma Chavez [facility]- to: [] consider utilizing therapist/counselor/so cial worker/psychologist, referral given [x] continue with therapist/counselor/so cial worker/psychologist Psychoeducation: -Treatment options discussed in detail with patient/guardian verbalizing understanding of treatment rationales. -Side effects and benefits of all medications prescribed discussed at length between psychiatric prescribing provider and patient/guardian along with the risks associated of edok-tk-haov interactions, including but not limited to prescription medications, OTC medications, vitamins, minerals and herbal supplements. -Patient/Guardian and provider dialogue showcased verbalized understanding from patient on rationales of medication risk vs benefits. -Information with neurobiology of presenting neurotransmitter disorder, mood stability, sleep hygiene and 7-8 hours of uninterrupted sleep per night with wakeful and refreshed awakening and day long alertness discussed. -Reduction of stress and anxiety to aid in focus and concentration discussed, again, with patient/guardian physically nodding, voicing understanding, and engaged in treatment plan with Uma Chavez [facility]. -Perceiving complete understanding of rationale by patient/guardian and willingness to adhere to formulated plan of care by prescriber with patient/guardian buy-in, willingness to participate actively in plan of care and willing to take charge of own care. -Although geared for female patients, all patients/guardians are informed by prescribing provider of risks of medications that could potentially be taken by female/women within their [place] of influence and that women who use medicine during have a higher chance of having a baby with defects. -Patient/Guardian denies being and/or knowing of women who are at present and denies wanting to become in the foreseeable future, 0-6 months from now. -Patient/Guardian again informed of the risk of pharmaceutical medications consumed during and how there are potential negative effects on the developing fetus. -Patient/Guardian verbalizes understanding of rationale and physically nods head in agreement that if a should occur, to consult with provider, INTAKE CLINICIAN and/or Nurse Grain Grader to determine if prescribed medications should or should not be continued. -Instructions regarding both the medical/pharmacologica l and non-pharmacologic aspects of the treatments employed were given, and the patient/guardian seemed to understand this. Risks and benefits of treatment, and of non-treatment, were also discussed. The patient/guardian understands the more frequent side effects associated with the medications. -The use of psychotherapy was addressed today and will continue on an as needed basis for the foreseeable future. The choice is, of course, ultimately left to the patient/guardian. -Patient/Guardian was encouraged to make a follow-up appointment for the next visit. -Additional treatment was discussed and has been addressed on an ongoing basis within the context of this patient's illness, resources, progress, and other appropriate factors. Being compliant with a regular exercise routine, consistent medication use, ongoing psychotherapy, eating and sleeping well, as well as the importance of handling stress, was discussed. 12/20/2024 Other May self-administer medications or be administered own oral medications per [facility] protocols. Provided informed consent with understanding of side effects, adverse effects, risks and benefits as well as alternative treatments as previously discussed and with the above recommended medications & other aspects of the treatment program. Agrees to return sooner if symptoms worsen or suicidal or homicidal ideations occur. Medication Hx: - Trazodone -Lamotrigine -Seroquel (pt states this worked well) -Hydroxyzine -Prazosin -Clonidine -Invega 6 mg -Buspar -Zoloft -Wellbutrin -Geodon Plan: -Continue Hydroxyzine 25 mg 1-2 capsules every 4 hours -Continue Melatonin QHS PRN -Continue Quetiapine 100 mg QHS -Increase Prazosin to 2 mg QHS *labs pending *pt needs to be seen in person by 12/2025 -Follow up: 1 week [] Hard Rx handed to patient [] Rx phoned into pharmacy [x] Rx faxed/e-prescribed into pharmacy [] PDMP Reviewed [] [facility] Reviewed Encouraged by Uma Chavez [facility] to: [] consider utilizing therapist/counselor/so cial worker/psychologist, referral given [x] continue with therapist/counselor/so cial worker/psychologist Psychoeducation: -Treatment options discussed in detail with patient/guardian verbalizing understanding of treatment rationales. -Side effects and benefits of all medications prescribed discussed at length between psychiatric prescribing provider and patient/guardian along with the risks associated of ijsr-ij-iubq interactions, including but not limited to prescription medications, OTC medications, vitamins, minerals and herbal supplements. -Patient/Guardian and provider dialogue showcased verbalized understanding from patient on rationales of medication risk vs benefits. -Information with neurobiology of presenting neurotransmitter disorder, mood stability, sleep hygiene and 7-8 hours of uninterrupted sleep per night with wakeful and refreshed awakening and day long alertness discussed. -Reduction of stress and anxiety to aid in focus and concentration discussed, again, with patient/guardian physically nodding, voicing understanding, and engaged in treatment plan with [facility]. -Perceiving complete understanding of rationale by patient/guardian and willingness to adhere to formulated plan of care by prescriber with patient/guardian buy-in, willingness to participate actively in plan of care and willing to take charge of own care. -Although geared for female patients, all patients/guardians are informed by prescribing provider of risks of medications that could potentially be taken by female/women within their [place] of influence and that women who use medicine during have a higher chance of having a baby with defects. -Patient/Guardian denies being and/or knowing of women who are at present and denies wanting to become in the foreseeable future, 0-6 months from now. -Patient/Guardian again informed of the risk of pharmaceutical medications consumed during and how there are potential negative effects on the developing fetus. -Patient/Guardian verbalizes understanding of rationale and physically nods head in agreement that if a should occur, to consult with provider, INTAKE CLINICIAN and/or Nurse Grain Grader to determine if prescribed medications should or should not be continued. -Instructions regarding both the medical/pharmacologica l and non-pharmacologic aspects of the treatments employed were given, and the patient/guardian seemed to understand this. Risks and benefits of treatment, and of non-treatment, were also discussed. The patient/guardian understands the more frequent side effects associated with the medications. -The use of psychotherapy was addressed today and will continue on an as needed basis for the foreseeable future. The choice is, of course, ultimately left to the patient/guardian. -Patient/Guardian was encouraged to make a follow-up appointment for the next visit. -Additional treatment was discussed and has been addressed on an ongoing basis within the context of this patient's illness, resources, progress, and other appropriate factors. Being compliant with a regular exercise routine, consistent medication use, ongoing psychotherapy, eating and sleeping well, as well as the importance of handling stress, was discussed. 12/22/2024 Other Learning About the Safe Use of Antibiotics material was discussed. Pt was educated on use of antibiotic medication including dosing, side effects, adverse effects and anticipated response. Pt was also educated on importance of completing full course of treatment as ordered. Patient voiced understanding of all. 06/01/2025 Other May self-administer medications or be administered own oral medications per [facility] protocols. Provided informed consent with understanding of side effects, adverse effects, risks and benefits as well as alternative treatments as previously discussed and with the above recommended medications & other aspects of the treatment program. Agrees to return sooner if symptoms worsen or suicidal or homicidal ideations occur. Medication Hx: - Trazodone -Lamotrigine -Seroquel (pt states this worked well) -Hydroxyzine -Prazosin (made nightmares worse) -Clonidine (not helpful) -Invega 6 mg -Buspar -Zoloft -Wellbutrin (not helpful) -Geodon Medication Plan: -Restart Hydroxyzine 25 mg 1-2 capsules BID PRN -Restart Quetiapine 50 mg 1-2 tablets QHS -Restart Atomoxetine 40 mg once daily -Restart Daily Ibrahima once daily -Follow up: 4 weeks [] Hard Rx handed to patient [] Rx phoned into pharmacy [x] Rx faxed/e-prescribed into pharmacy [] PDMP Reviewed [] [facility] Reviewed Encouraged by Uma Chavez HNP-BC to: [] consider utilizing therapist/counselor/so cial worker/psychologist, referral given [] continue with therapist/counselor/so cial worker/psychologist Psychoeducation: -Treatment options discussed in detail with patient/guardian verbalizing understanding of treatment rationales. -Side effects and benefits of all medications prescribed discussed at length between psychiatric prescribing provider and patient/guardian along with the risks associated of pvdr-jw-pboo interactions, including but not limited to prescription medications, OTC medications, vitamins, minerals and herbal supplements. -Patient/Guardian and provider dialogue showcased verbalized understanding from patient on rationales of medication risk vs benefits. -Information with neurobiology of presenting neurotransmitter disorder, mood stability, sleep hygiene and 7-8 hours of uninterrupted sleep per night with wakeful and refreshed awakening and day long alertness discussed. -Reduction of stress and anxiety to aid in focus and concentration discussed, again, with patient/guardian physically nodding, voicing understanding, and engaged in treatment plan with Uma Chavez HNP-BC. -Perceiving complete understanding of rationale by patient/guardian and willingness to adhere to formulated plan of care by prescriber with patient/guardian buy-in, willingness to participate actively in plan of care and willing to take charge of own care. -Although geared for female patients, all patients/guardians are informed by prescribing provider of risks of medications that could potentially be taken by female/women within their [place] of influence and that women who use medicine during have a higher chance of having a baby with defects. -Patient/Guardian denies being and/or knowing of women who are at present and denies wanting to become in the foreseeable future, 0-6 months from now. -Patient/Guardian again informed of the risk of pharmaceutical medications consumed during and how there are potential negative effects on the developing fetus. -Patient/Guardian verbalizes understanding of rationale and physically nods head in agreement that if a should occur, to consult with provider, INTAKE CLINICIAN and/or Nurse Grain Grader to determine if prescribed medications should or should not be continued. -Instructions regarding both the medical/pharmacologica l and non-pharmacologic aspects of the treatments employed were given, and the patient/guardian seemed to understand this. Risks and benefits of treatment, and of non-treatment, were also discussed. The patient/guardian understands the more frequent side effects associated with the medications. -The use of psychotherapy was addressed today and will continue on an as needed basis for the foreseeable future. The choice is, of course, ultimately left to the patient/guardian. -Patient/Guardian was encouraged to make a follow-up appointment for the next visit. -Additional treatment was discussed and has been addressed on an ongoing basis within the context of this patient's illness, resources, progress, and other appropriate factors. Being compliant with a regular exercise routine, consistent medication use, ongoing psychotherapy, eating and sleeping well, as well as the importance of handling stress, was discussed. Plan Of Treatment No Information Insurance Providers Payer Name Payer Address Payer Phone Subscriber Number Group Number Insured Name Patient Relationship to Insured Coverage Start Date Coverage End Date [employer] Better [employer] Medicare-MMA I [address] [address] [place] [address] [id number] Isabel Quinones Self - patient is the insured 1 2 [employer] MEDICARE ADV [address] [address] [place] [address] [id number] Isabel Quinones Self - patient is the insured 2 5 MEDICAID [address] [place] [address] [id number] Isabel Quinones Self - patient is the insured 5 MEDICAID [address] [place] [id number] Isabel Quinones Self - patient is the insured 6 1 [employer] Medicaid [address] [address] [place] [address] [id number] Isabel Quinones Self - patient is the insured 2 5 MEDICARE PART A [address] [place] [address] [id number] Isabel Quinones Self - patient is the insured 6 5 MEDICARE [employer] [address] [place] [address] [id number] Isabel Quinones Self - patient is the insured 6 5 [employer] BETTER HE[employer] [address] [place] [address] [id number] Isabel Quinones Self - patient is the insured 1 5 MEDICAID TELEHEALTH [address] [place] [id number] Isabel Quinones Self - patient is the insured 5 Medical (General) History Medical History History ICD Code attention deficit hyperactivity disorder Social Anxiety disorder PTSD Nightmares Surgical History Surgery Date(Month/Year) salpingectomy 2019 c section x2 tonsils removed Hospitalization History Reason Date(Month/Year) [facility] 05/2024
--- NOTE | 2025-06-28 14:17 | PC.NURSE ---
No response when called for in lobby.
== END 2025-06-28 15:22 | disposition left against medical advice (07) ==
DX: N64.4 Mastodynia (principal)
CPT/HCPCS: 99199